=== PATIENT | male | born 1945 | race Caucasian/White ===

== ENCOUNTER 2019-10-24 07:28 | Emergency (ER) | payer MEDICARE, BC ==
[2019-10-24 07:51] VITALS: BP 142/67; PULSE 74
--- NOTE | 2019-10-24 07:58 | EDM.PDOC ---
<Darnell Hagen - Last Filed: 10/24/19 08:50> ED HPI GENERAL MEDICAL PROBLEM - General Chief Complaint: Lower Extremity Injury/Pain Stated Complaint: INJURED RT LEG/ANKLE Time Seen by Provider: 10/24/19 07:52 Source of Information: Reports: Patient, Family (), RN, RN Notes Reviewed History Limitations: Reports: No Limitations - History of Present Illness INITIAL COMMENTS - FREE TEXT/NARRATIVE: Patient presents to the ER with complaints of right ankle pain. He slipped on the ice last night around 1999. He twisted his right ankle and knee and fell on his butt. He woke up during the night to use the bathroom and could hardly bear weight on it. He took 3 tylenol this morning before coming to the ER. 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 He has also had decreased feeling and sensation in his right foot and ankle that has been progressively getting worse. He cannot move his toes on his right foot and has limited range of motion in his ankle as well and has been like that for a while. He has an appointment in [place] with Dr Euceda at the end of October to address this issue. He has mild swelling to the lateral malleolus and no ecchymosis to the right ankle. His pain is to the lateral ankle that radiates up the lateral lower leg to his knee. He is able to ambulate with the assist of a cane. Onset: Sudden Onset Date: 10/23/19 Location: Reports: Lower Extremity, Right (ankle), Radiates to (up the lateral right lower leg to knee) Quality: Reports: Ache Severity: Mild Improves with: Reports: None Worsens with: Reports: None Associated Symptoms: Reports: No Other Symptoms Treatments QUARTZ MINER: Reports: Acetaminophen Right Ankle Pain Score (Numeric/FACES): 2 - Related Data Allergies Allergy/AdvReac Type Severity Reaction Status Date / Time No Known Allergies Allergy Verified 10/24/19 07:40 Home Meds: Home Meds Enalapril/Hydrochlorothiazide [Enalapril-HCTZ 10-25 MG] 1 tab PO DAILY 07/09/15 [History] Multivitamin with Minerals [Multiple Vitamin] 1 tab PO DAILY 07/09/15 [History] Simvastatin 20 mg PO DAILY 07/09/15 [History] Finasteride 5 mg PO DAILY 10/24/19 [History] Tamsulosin [Flomax] 0.4 mg PO DAILY 10/24/19 [History] Past Medical History Other HEENT History: WEARS CORRECTIVE LENSES Other Cardiovascular History: HYPERLIPIDEMIA Other Gastrointestinal History: ALDO'S EROSIONS; DIVERTICULOSIS; ISCHEMIC COLITIS; SLIDING HIATAL HERNIA Other Genitourinary History: URETHRAL STRICTURE Other Musculoskeletal History: COMPRESSION FRACTURE L1; DISTAL PHALANX FRACTURE OPEN - Past Surgical History Other HEENT Surgeries/Procedures: PARTIAL PLATES TOP AND BOTTOM Other Male Surgeries/Procedures: VASECTOMY; URETHRAL STRICTURE DILATATION; CIRCUMCISION Other Musculoskeletal Surgeries/Procedures:: LUMBAR SPINE SURGERY; THUMB LACERATION REPAIR Review of Systems - Review of Systems Review Of Systems: Comprehensive ROS is negative, except as noted in HPI. ED EXAM, GENERAL - Physical Exam Exam: See Below Exam Limited By: No Limitations General Appearance: Alert, WD/WN, No Apparent Distress Respiratory/Chest: No Respiratory Distress, Lungs Clear, Normal Breath Sounds, No Accessory Muscle Use, Chest Non-Tender Cardiovascular: Normal Peripheral Pulses, Regular Rate, Rhythm, No Edema, No Gallop, No JVD, No Murmur, No Rub Peripheral Pulses: 2+: Posterior Tibial (R), Dorsalis Pedis (R) Extremities: Normal Inspection, Non-Tender, No Pedal Edema, Normal Capillary Refill, Joint Swelling (right lateral ankle), Limited Range of Motion (right ankle) Neurological: Alert, Oriented, CN II-XII Intact, Normal Cognition, Normal Reflexes, No Motor/Sensory Deficits Psychiatric: Normal Affect, Normal Mood Skin Exam: Warm, Dry, Intact, Normal Color, No Rash Course - Vital Signs Last Recorded V/S: Last Vital Signs Temp 36.4 C 10/24/19 07:33 Pulse 74 10/24/19 07:33 Resp 16 10/24/19 07:33 BP 142/67 H 10/24/19 07:33 Pulse Ox 96 10/24/19 07:33 - Orders/Labs/Meds Orders: Active Orders 24 hr Category Date Time Status DME for Discharge [COMM] Urgent Oth 10/24/19 08:53 Ordered Departure - Departure Time of Disposition: 08:50 Disposition: Home, Self-Care 01 Condition: Good Clinical Impression: Sprain of ankle, right Qualifiers: Encounter type: initial encounter Involved ligament of ankle: unspecified ligament Qualified Code(s): S93.401A - Sprain of unspecified ligament of right ankle, initial encounter - Discharge Information *PRESCRIPTION DRUG MONITORING PROGRAM REVIEWED*: Not Applicable *COPY OF PRESCRIPTION DRUG MONITORING REPORT IN PATIENT JEN: Not Applicable Instructions: How to Use a Stirrup Ankle Brace, [id number], Ankle Sprain, [id number] Forms: ED Department Discharge Additional Instructions: X-ray results were reviewed with patient. Use the manufactured air splint while awake, you can take it off for showering and sleeping. Ice the ankle as much as possible when resting to keep swelling down, elevate while resting and use ibuprofen and tylenol for pain as needed. If symptoms get worse or other symptoms arise follow-up in clinic with primary care provider. Sepsis Event Note - Evaluation Sepsis Screening Result: No Definite Risk - Focused Exam Vital Signs: Vital Signs Temp Pulse Resp BP Pulse Ox 10/24/19 07:33 36.4 C 74 16 142/67 H 96 Date Exam was Performed: 10/24/19 Time Exam was Performed: 08:50 - My Orders Last 24 Hours: My Active Orders 10/24/19 08:53 DME for Discharge [COMM] Urgent - Assessment/Plan Last 24 Hours: My Active Orders 10/24/19 08:53 DME for Discharge [COMM] Urgent <Edgar Hugo - Last Filed: 10/24/19 09:03> Course - Orders/Labs/Meds Orders: Active Orders 24 hr Category Date Time Status DME for Discharge [COMM] Urgent Oth 10/24/19 08:53 Ordered - Re-Assessments/Exams Free Text/Narrative Re-Assessment/Exam: 10/24/19 08:49 I have examined the patient. I have discussed findings and treatment plan with the PA student. I agree with the assessment and plan in the following students note. Sepsis Event Note - Focused Exam Date Exam was Performed: 10/24/19 Time Exam was Performed: 09:03 - My Orders Last 24 Hours: My Active Orders 10/24/19 08:53 DME for Discharge [COMM] Urgent - Assessment/Plan Last 24 Hours: My Active Orders 10/24/19 08:53 DME for Discharge [COMM] Urgent
== END 2019-10-24 09:14 | disposition home or self-care (01) ==
LOC: DL.ED 07:28
DX: S93.401A Sprain of unspecified ligament of right ankle, initial encounter (principal); Z79.899 Other long term (current) drug therapy; W19.XXXA Unspecified fall, initial encounter
CPT/HCPCS: 73562-RT; 73610-RT; 99282; 99283-25

== ENCOUNTER 2021-05-07 23:45 | Emergency (ER) | payer MEDICARE, BC ==
[2021-05-08 00:23] VITALS: BP 147/67; PULSE 109
[2021-05-08] MEDS ORDERED: Benzonatate 100 MG Cap PO ONE (00:36)
[2021-05-08] MEDS ORDERED: Acetaminophen 325 MG Tab PO ONE (00:36)
[2021-05-08] MEDS ORDERED: Albuterol/Ipratropium 3.0-0.5 MG/3 ML Neb Soln NEB ONE (01:33)
[2021-05-08 02:01] LABS: ANION GAP 12.6 mEq/L (7-13); CHLORIDE,CL 98 mmol/L (98-107); SODIUM,NA 133 mmol/L (136-145)
--- NOTE | 2021-05-08 02:06 | CR ---
PROCEDURE INFORMATION: Exam: XR Chest Exam date and time: 05/08/2021 1:25 AM Age: 76 years old Clinical indication: Cough and shortness of breath; Additional info: Cough fever SOB TECHNIQUE: Imaging protocol: XR of the chest. Views: 1 view. COMPARISON: No relevant prior studies available. FINDINGS: Lungs: Bibasilar mild airspace disease which could represent atelectasis. Cannot exclude basilar infiltrative changes. Upper lung kilgore are clear. Pleural spaces: No pleural effusions. Heart/Mediastinum: Normal heart size. Bones/joints: Unremarkable. IMPRESSION: 1. Bibasilar mild airspace disease. Cannot exclude bibasilar pneumonitis. Differential diagnosis would include atelectasis. 2. No pleural effusions.
[2021-05-08] MEDS ORDERED: guaiFENesin 100 MG/5 ML Soln 5 ML UD Cup PO ONE (02:14)
[2021-05-08] MEDS ORDERED: Azithromycin 250 MG Tab PO ONE (02:14)
--- NOTE | 2021-05-08 02:18 | EDM.PDOC ---
ED HPI GENERAL MEDICAL PROBLEM - General Chief Complaint: Respiratory Problem Stated Complaint: SHORT OF BREATH,COUGHING,CHILLS. PT FELL EARLIER Time Seen by Provider: 05/08/21 00:30 Source of Information: Reports: Patient History Limitations: Reports: No Limitations - History of Present Illness INITIAL COMMENTS - FREE TEXT/NARRATIVE: ED with c/o cough SOB onset ill ness 2 weeks, today developed fever and chills cough porductive yellow phlegm. Decreased appetite. No vomiting. Smoker. No hx COPD or asthma. No family members ill, No COVID exposure. Vaccinated. - Related Data Allergies Allergy/AdvReac Type Severity Reaction Status Date / Time No Known Allergies Allergy Verified 05/08/21 00:23 Home Meds: Home Meds Enalapril/Hydrochlorothiazide [Enalapril-HCTZ 10-25 MG] 1 tab PO DAILY 07/09/15 [History] Multivitamin with Minerals [Multiple Vitamin] 1 tab PO DAILY 07/09/15 [History] Simvastatin 20 mg PO DAILY 07/09/15 [History] Finasteride 5 mg PO DAILY 10/24/19 [History] Tamsulosin [Flomax] 0.4 mg PO DAILY 10/24/19 [History] Past Medical History HEENT History: Reports: Other (See Below) Other HEENT History: WEARS CORRECTIVE LENSES Cardiovascular History: Reports: High Cholesterol, Hypertension Other Cardiovascular History: HYPERLIPIDEMIA Respiratory History: Reports: None Gastrointestinal History: Reports: Other (See Below) Other Gastrointestinal History: ALDO'S EROSIONS; DIVERTICULOSIS; ISCHEMIC COLITIS; SLIDING HIATAL HERNIA Genitourinary History: Reports: Other (See Below) Other Genitourinary History: URETHRAL STRICTURE Musculoskeletal History: Reports: Other (See Below) Other Musculoskeletal History: COMPRESSION FRACTURE L1; DISTAL PHALANX FRACTURE OPEN Neurological History: Reports: None Psychiatric History: Reports: None Endocrine/Metabolic History: Reports: None Hematologic History: Reports: None Immunologic History: Reports: None Oncologic (Cancer) History: Reports: None Dermatologic History: Reports: None - Past Surgical History HEENT Surgical History: Reports: Other (See Below) Other HEENT Surgeries/Procedures: PARTIAL PLATES TOP AND BOTTOM Male Surgical History: Reports: Vasectomy, Other (See Below) Other Male Surgeries/Procedures: VASECTOMY; URETHRAL STRICTURE DILATATION; CIRCUMCISION Musculoskeletal Surgical History: Reports: Joint Replacement, Other (See Below) Other Musculoskeletal Surgeries/Procedures:: LUMBAR SPINE SURGERY; THUMB LACERATION REPAIR Social & Family History - Tobacco Use Tobacco Use Status *Q: Current Every Day Tobacco User Years of Tobacco use: 50 Packs/Tins Daily: 0.2 - Caffeine Use Caffeine Use: Reports: None - Recreational Drug Use Recreational Drug Use: No ED ROS GENERAL - Review of Systems Review Of Systems: Comprehensive ROS is negative, except as noted in HPI. ED EXAM, GENERAL - Physical Exam Exam: See Below Exam Limited By: No Limitations General Appearance: Alert, Mild Distress Eye Exam: Bilateral Eye: EOMI Ears: Normal External Exam, Hearing Grossly Normal, Normal TMs Nose: Normal Inspection Throat/Mouth: Normal Inspection Head: Atraumatic, Normocephalic Neck: Normal Inspection Respiratory/Chest: No Respiratory Distress, Decreased Breath Sounds, Rhonchi (bilateral mid to base) Cardiovascular: Normal Peripheral Pulses, Regular Rate, Rhythm GI/Abdominal: Normal Bowel Sounds, Soft Back Exam: Normal Inspection Extremities: Normal Inspection Neurological: Alert, Oriented, CN II-XII Intact, Normal Cognition, Normal Gait Psychiatric: Normal Affect, Normal Mood Skin Exam: Warm, Dry, Intact, Normal Color Course - Vital Signs Last Recorded V/S: Last Vital Signs Temp 98.4 F 05/08/21 00:19 Pulse 109 H 05/08/21 00:19 Resp 20 05/08/21 00:19 BP 147/67 H 05/08/21 00:19 Pulse Ox 93 L 05/08/21 00:19 - Orders/Labs/Meds Orders: Active Orders 24 hr Category Date Time Status RT Aerosol Therapy [RC] ASDIRECTED Care 05/08/21 01:33 Active CULTURE BLOOD [BC] Stat Lab 05/08/21 01:22 Received Labs: Laboratory Tests 05/08/21 05/08/21 05/08/21 Range/Units 00:10 01:22 01:22 WBC 12.8 H (5.0-10.0) 10^3/uL RBC 4.40 L (4.6-6.2) 10^6/uL Hgb 14.2 (14.0-18.0) g/dL Hct 41.0 (40.0-54.0) % MCV 93.2 (80-100) fL MCH 32.3 (27.0-34.0) pg MCHC 34.6 (33.0-35.0) g/dL Plt Count 165 (150-450) 10^3/uL Neut % (Auto) 89.2 H (42.2-75.2) % Lymph % (Auto) 4.5 L (20.5-50.1) % Riley % (Auto) 6.2 (2-8) % Eos % (Auto) 0.0 L (1.0-3.0) % Baso % (Auto) 0.1 (0.0-1.0) % D-Dimer, Quantitative 745 H (0-400) ng/mL Sodium (136-145) mmol/L Potassium (3.5-5.1) mmol/L Chloride (98-107) mmol/L Carbon Dioxide (21-32) mmol/L Anion Gap (7-13) mEq/L BUN (7-18) mg/dL Creatinine (0.70-1.30) mg/dL Est Cr Clr Drug Dosing mL/min Estimated GFR (MDRD) BUN/Creatinine Ratio (No establ ref range) Glucose (70-99) mg/dL Lactic Acid (0.4-2.0) mmol/L Calcium (8.5-10.1) mg/dL Magnesium (1.8-2.4) mg/dL Total Bilirubin (0.2-1.0) mg/dL AST (15-37) U/L ALT (16-63) U/L Alkaline Phosphatase (46-116) U/L Troponin I High Sens (<=76) pg/mL Total Protein (6.4-8.2) g/dL Albumin (3.4-5.0) g/dL Globulin Albumin/Globulin Ratio SARS-CoV-2 RNA (CHAITANYA) Negative (NEGATIVE) 05/08/21 05/08/21 Range/Units 01:22 01:22 WBC (5.0-10.0) 10^3/uL RBC (4.6-6.2) 10^6/uL Hgb (14.0-18.0) g/dL Hct (40.0-54.0) % MCV (80-100) fL MCH (27.0-34.0) pg MCHC (33.0-35.0) g/dL Plt Count (150-450) 10^3/uL Neut % (Auto) (42.2-75.2) % Lymph % (Auto) (20.5-50.1) % Riley % (Auto) (2-8) % Eos % (Auto) (1.0-3.0) % Baso % (Auto) (0.0-1.0) % D-Dimer, Quantitative (0-400) ng/mL Sodium 133 L (136-145) mmol/L Potassium 3.6 (3.5-5.1) mmol/L Chloride 98 (98-107) mmol/L Carbon Dioxide 26 (21-32) mmol/L Anion Gap 12.6 (7-13) mEq/L BUN 15 (7-18) mg/dL Creatinine 0.89 (0.70-1.30) mg/dL Est Cr Clr Drug Dosing 70.63 mL/min Estimated GFR (MDRD) > 60 BUN/Creatinine Ratio 16.9 (No establ ref range) Glucose 122 H (70-99) mg/dL Lactic Acid 1.2 (0.4-2.0) mmol/L Calcium 8.3 L (8.5-10.1) mg/dL Magnesium 1.6 L (1.8-2.4) mg/dL Total Bilirubin 1.0 (0.2-1.0) mg/dL AST 16 (15-37) U/L ALT 25 (16-63) U/L Alkaline Phosphatase 46 (46-116) U/L Troponin I High Sens 61 (<=76) pg/mL Total Protein 6.4 (6.4-8.2) g/dL Albumin 3.0 L (3.4-5.0) g/dL Globulin 3.4 Albumin/Globulin Ratio 0.88 SARS-CoV-2 RNA (CHAITANYA) (NEGATIVE) Meds: Medications Discontinued Medications Generic Name Dose Route Start Last Admin Trade Name Freq PRN Reason Stop Dose Admin Acetaminophen 650 mg 05/08/21 00:36 05/08/21 01:36 Acetaminophen 325 Mg Tab PO 05/08/21 00:37 650 mg NOW ONE Administration Albuterol/Ipratropium 3 ml 05/08/21 01:33 05/08/21 01:36 Albuterol/Ipratropium 3.0-0.5 Mg/3 Ml Neb Soln NEB 05/08/21 01:34 3 ml ONETIME ONE Administration Benzonatate 200 mg 05/08/21 00:36 05/08/21 01:35 Benzonatate 100 Mg Cap PO 05/08/21 00:37 200 mg ONETIME ONE Administration Departure - Departure Time of Disposition: 02:18 Disposition: Home, Self-Care 01 Condition: Good Clinical Impression: Pneumonia Qualifiers: Pneumonia type: due to unspecified organism Laterality: bilateral Lung location: lower lobe of lung Qualified Code(s): J18.9 - Pneumonia, unspecified organism - Discharge Information *PRESCRIPTION DRUG MONITORING PROGRAM REVIEWED*: No *COPY OF PRESCRIPTION DRUG MONITORING REPORT IN PATIENT JEN: No Instructions: Community-Acquired Pneumonia, Adult, [id number] Additional Instructions: Robitussin or muccinex to loosen phlegm tessalon 200mg every 8 hours as needed for cough humidifier increase fluids tylenol 500mg every 4 hours as needed for fever/chills/ discomfort clinic follow up if not improving Urgent follow up if symptoms worsening Sepsis Event Note (ED) - Evaluation Sepsis Screening Result: No Definite Risk - Focused Exam Vital Signs: Vital Signs Temp Pulse Resp BP Pulse Ox 05/08/21 00:19 98.4 F 109 H 20 147/67 H 93 L - My Orders Last 24 Hours: My Active Orders 05/08/21 01:22 CULTURE BLOOD [BC] Stat 05/08/21 01:33 RT Aerosol Therapy [RC] ASDIRECTED - Assessment/Plan Last 24 Hours: My Active Orders 05/08/21 01:22 CULTURE BLOOD [BC] Stat 05/08/21 01:33 RT Aerosol Therapy [RC] ASDIRECTED
== END 2021-05-08 02:32 | disposition home or self-care (01) ==
LOC: DL.ED 23:45
DX: J18.9 Pneumonia, unspecified organism (principal); E78.00 Pure hypercholesterolemia, unspecified; I10 Essential (primary) hypertension; Z72.0 Tobacco use; Z20.822 Contact with and (suspected) exposure to COVID-19
CPT/HCPCS: 36415; 71045; 80053; 83605; 83735; 84484; 85025; 85379; 87040; 99285; A9270; U0002; 87077; J7620-GY

== ENCOUNTER 2021-05-10 09:58 | Inpatient (IN) | payer MEDICARE, BC ==
--- NOTE | 2021-05-10 10:13 | EDM.PDOC ---
"ED HPI GENERAL MEDICAL PROBLEM - General Chief Complaint: Respiratory Problem Stated Complaint: [id number] PNNAEEMONIA SPITTING UP BLOOD Time Seen by Provider: 05/10/21 10:12 Source of Information: Reports: Patient History Limitations: Reports: No Limitations - History of Present Illness INITIAL COMMENTS - FREE TEXT/NARRATIVE: This 76 yo male patient reports to the ED due to coughing up blood. The patient reports he has had a cough for the past 2 weeks that has been getting worse. The patient was seen in the ED on Monday due to the cough. The patient was diagnosed with CAP and discharged on Azithromycin. The patient reports he has been taking the medication as prescribed, but continues to feel worse. 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 Medication(s) - Related Data Allergies Allergy/AdvReac Type Severity Reaction Status Date / Time No Known Allergies Allergy Verified 05/08/21 00:23 Home Meds: Home Meds Enalapril/Hydrochlorothiazide [Enalapril-HCTZ 10-25 MG] 1 tab PO DAILY 07/09/15 [History] Multivitamin with Minerals [Multiple Vitamin] 1 tab PO DAILY 07/09/15 [History] Simvastatin 20 mg PO DAILY 07/09/15 [History] Finasteride 5 mg PO DAILY 10/24/19 [History] Tamsulosin [Flomax] 0.4 mg PO DAILY 10/24/19 [History] Azithromycin [Zithromax] 250 mg PO DAILY 05/10/21 [History] Benzonatate 200 mg PO TID PRN 05/10/21 [History] Past Medical History HEENT History: Reports: Other (See Below) Other HEENT History: WEARS CORRECTIVE LENSES Cardiovascular History: Reports: High Cholesterol, Hypertension Other Cardiovascular History: HYPERLIPIDEMIA Respiratory History: Reports: None Gastrointestinal History: Reports: Other (See Below) Other Gastrointestinal History: ALDO'S EROSIONS; DIVERTICULOSIS; ISCHEMIC COLITIS; SLIDING HIATAL HERNIA Genitourinary History: Reports: Other (See Below) Other Genitourinary History: URETHRAL STRICTURE Musculoskeletal History: Reports: Other (See Below) Other Musculoskeletal History: COMPRESSION FRACTURE L1; DISTAL PHALANX FRACTURE OPEN Neurological History: Reports: None Psychiatric History: Reports: None Endocrine/Metabolic History: Reports: None Hematologic History: Reports: None Immunologic History: Reports: None Oncologic (Cancer) History: Reports: None Dermatologic History: Reports: None - Past Surgical History HEENT Surgical History: Reports: Other (See Below) Other HEENT Surgeries/Procedures: PARTIAL PLATES TOP AND BOTTOM Male Surgical History: Reports: Vasectomy, Other (See Below) Other Male Surgeries/Procedures: VASECTOMY; URETHRAL STRICTURE DILATATION; CIRCUMCISION Musculoskeletal Surgical History: Reports: Joint Replacement, Other (See Below) Other Musculoskeletal Surgeries/Procedures:: LUMBAR SPINE SURGERY; THUMB LACERATION REPAIR Social & Family History - Caffeine Use Caffeine Use: Reports: None ED ROS GENERAL - Review of Systems Review Of Systems: Comprehensive ROS is negative, except as noted in HPI. ED EXAM, GENERAL - Physical Exam Exam: See Below Exam Limited By: No Limitations General Appearance: Alert, WD/WN, Moderate Distress Eye Exam: Bilateral Eye: EOMI, Normal Inspection, PERRL Ears: Normal External Exam, Normal Canal, Hearing Grossly Normal, Normal TMs Nose: Normal Inspection, Normal Mucosa, No Blood Throat/Mouth: Normal Inspection, Normal Lips, Normal Teeth, Normal Gums, Normal Oropharynx, Normal Voice, No Airway Compromise Head: Atraumatic, Normocephalic Neck: Normal Inspection, Supple, Non-Tender, Full Range of Motion Respiratory/Chest: Decreased Breath Sounds, Rhonchi (right lower) Cardiovascular: Normal Peripheral Pulses, No Edema, No Gallop, No JVD, No Murmur, No Rub, Tachycardia (Initially) GI/Abdominal: Normal Bowel Sounds, Soft, Non-Tender, No Organomegaly, No Distention, No Abnormal Bruit, No Mass (Male) Exam: Deferred Rectal (Males) Exam: Deferred Back Exam: Normal Inspection, Full Range of Motion, NT Extremities: Normal Inspection, Normal Range of Motion, Non-Tender, Normal Capillary Refill, No Pedal Edema Neurological: Alert, Oriented, CN II-XII Intact, Normal Cognition, Normal Gait, Normal Reflexes, No Motor/Sensory Deficits Psychiatric: Normal Affect, Normal Mood Skin Exam: Warm, Dry, Intact, Normal Color, No Rash Lymphatic: No Adenopathy #1 Interpretation EKG Date: 05/10/21 Time: 10:21 Rhythm: Other (Bigeminal PVCs) [place]: Normal P-Wave: Present QRS: Normal ST-T: Normal QT: Normal Course - Vital Signs Last Recorded V/S: Last Vital Signs Temp 96.8 F L 05/10/21 10:11 Pulse 102 H 05/10/21 11:13 Resp 24 H 05/10/21 11:13 BP 124/75 05/10/21 11:13 Pulse Ox 95 05/10/21 11:13 - Orders/Labs/Meds Orders: Active Orders 24 hr Category Date Time Status CULTURE BLOOD [BC] Stat Lab 05/10/21 10:16 Received CULTURE SPUTUM + SMEAR [RM] Stat Lab 05/10/21 12:13 Ordered UA RFX LEXI AND CULT IF INDIC [URIN] Urgent Lab 05/10/21 12:13 Ordered Labs: Laboratory Tests 05/10/21 05/10/21 05/10/21 Range/Units 10:15 10:16 10:16 WBC 10.5 H (5.0-10.0) 10^3/uL RBC 4.35 L (4.6-6.2) 10^6/uL Hgb 13.9 L (14.0-18.0) g/dL Hct 41.1 (40.0-54.0) % MCV 94.5 (80-100) fL MCH 32.0 (27.0-34.0) pg MCHC 33.8 (33.0-35.0) g/dL Plt Count 182 (150-450) 10^3/uL Neut % (Auto) 73.5 (42.2-75.2) % Lymph % (Auto) 16.5 L (20.5-50.1) % [place] % (Auto) 8.5 H (2-8) % Eos % (Auto) 1.3 (1.0-3.0) % Baso % (Auto) 0.2 (0.0-1.0) % D-Dimer, Quantitative 2720 H (0-400) ng/mL Sodium (136-145) mmol/L Potassium (3.5-5.1) mmol/L Chloride (98-107) mmol/L Carbon Dioxide (21-32) mmol/L Anion Gap (7-13) mEq/L BUN (7-18) mg/dL Creatinine (0.70-1.30) mg/dL Est Cr Clr Drug Dosing mL/min Estimated GFR (MDRD) BUN/Creatinine Ratio (No establ ref range) Glucose (70-99) mg/dL Lactic Acid (0.4-2.0) mmol/L Calcium (8.5-10.1) mg/dL Total Bilirubin (0.2-1.0) mg/dL AST (15-37) U/L ALT (16-63) U/L Alkaline Phosphatase (46-116) U/L Troponin I High Sens (<=76) pg/mL B-Natriuretic Peptide (0-100) pg/ml Total Protein (6.4-8.2) g/dL Albumin (3.4-5.0) g/dL Globulin Albumin/Globulin Ratio SARS-CoV-2 RNA (CHAITANYA) Negative (NEGATIVE) 05/10/21 05/10/21 Range/Units 10:16 10:16 WBC (5.0-10.0) 10^3/uL RBC (4.6-6.2) 10^6/uL Hgb (14.0-18.0) g/dL Hct (40.0-54.0) % MCV (80-100) fL MCH (27.0-34.0) pg MCHC (33.0-35.0) g/dL Plt Count (150-450) 10^3/uL Neut % (Auto) (42.2-75.2) % Lymph % (Auto) (20.5-50.1) % [place] % (Auto) (2-8) % Eos % (Auto) (1.0-3.0) % Baso % (Auto) (0.0-1.0) % D-Dimer, Quantitative (0-400) ng/mL Sodium 139 (136-145) mmol/L Potassium 3.4 L (3.5-5.1) mmol/L Chloride 101 (98-107) mmol/L Carbon Dioxide 28 (21-32) mmol/L Anion Gap 13.4 H (7-13) mEq/L BUN 14 (7-18) mg/dL Creatinine 0.81 (0.70-1.30) mg/dL Est Cr Clr Drug Dosing 70.27 mL/min Estimated GFR (MDRD) > 60 BUN/Creatinine Ratio 17.3 (No establ ref range) Glucose 127 H (70-99) mg/dL Lactic Acid 1.6 (0.4-2.0) mmol/L Calcium 9.1 (8.5-10.1) mg/dL Total Bilirubin 0.5 (0.2-1.0) mg/dL AST 26 (15-37) U/L ALT 34 (16-63) U/L Alkaline Phosphatase 55 (46-116) U/L Troponin I High Sens 21 (<=76) pg/mL B-Natriuretic Peptide 221 H (0-100) pg/ml Total Protein 7.0 (6.4-8.2) g/dL Albumin 2.8 L (3.4-5.0) g/dL Globulin 4.2 Albumin/Globulin Ratio 0.67 SARS-CoV-2 RNA (CHAITANYA) (NEGATIVE) Meds: Medications Discontinued Medications Generic Name Dose Route Start Last Admin Trade Name Freq PRN Reason Stop Dose Admin Iopamidol 100 ml 05/10/21 11:24 05/10/21 11:54 Iopamidol 755 Mg/Ml 100 Ml Bottle IVPUSH 05/10/21 11:25 79 ml ONETIME ONE Administration - Radiology Interpretation Free Text/Narrative:: [facility] Final Radiology Report Call: [phone] assistance Online chat: [email or web address] Name: DEBORAH MILLARD Age: 76Years M Date: 05/10/2021 SSN: -- : [id number] Study: CT CHEST W CONT Requesting Physician: Edgar Hugo Images: 480 Addl Studies: Provided Clinical History: shortness of breath, cough, elevated D-dimer Contrast: With Contrast Medium: Isovue 370 Contrast Amount: 79 mL Contrast Method: Intravenous (IV) Page 1 of 2 PROCEDURE INFORMATION: Exam: CT Chest With Contrast; Diagnostic Exam date and time: 05/10/2021 11:38 AM Age: 76 years old Clinical indication: Cough and shortness of breath; Additional info: Shortness of breath, cough, elevated d-dimer TECHNIQUE: Imaging protocol: Diagnostic computed tomography of the chest with contrast. Radiation optimization: All CT scans at this facility use at least one of these dose optimization techniques: automated exposure control; mA and/or kV adjustment per patient size (includes targeted exams where dose is matched to clinical indication); or iterative reconstruction. Contrast material: ISOVUE 370; Contrast volume: 79 ml; Contrast route: INTRAVENOUS (IV); COMPARISON: CR Chest 1V Frontal 05/08/2021 1:25 AM FINDINGS: Lungs: There is an alveolar right lower lobe consolidation predominating at the posterior basilar segment. Right hilar and infrahilar peribronchial patchy opacification. Pleural spaces: Unremarkable. No pneumothorax. No pleural effusion. Heart: Coronary artery calcifications. No cardiomegaly. No pericardial effusion. Mediastinal space: There is a small hiatal hernia. Pulmonary arteries: Main pulmonary artery measures 2.7 cm. No pulmonary filling defects. Aorta: Atherosclerotic calcification. No aortic aneurysm. Veins: Opacification of dilated inferior vena cava and hepatic veins may represent hepatic congestion. Lymph nodes: Reactive mediastinal lymph nodes. No enlarged lymph nodes. Bones/joints: Unremarkable. No acute fracture. DEBORAH MILLARD | Final Radiology Report CONFIDENTIALITY STATEMENT This report is intended only for use by the referring physician, and only in accordance with law. If you received this in error, call [phone]. Page 2 of 2 Soft tissues: Unremarkable. IMPRESSION: 1. No pulmonary embolic disease. 2. Moderate right peribronchial and right lower lobe consolidation compatible with pneumonitis. 3. Hepatic congestion. 4. Hiatal hernia. Thank you for allowing us to participate in the care of your patient. Dictated and Authenticated by: Kristie Ibanez MD 05/10/2021 12:55 PM Central Time ([place] & [place]) Departure - Departure Time of Disposition: 13:44 Disposition: Admitted As Inpatient 64 Condition: Fair Clinical Impression: D-dimer, elevated Pneumonia Qualifiers: Pneumonia type: due to unspecified organism Laterality: bilateral Lung location: lower lobe of lung Qualified Code(s): J18.9 - Pneumonia, unspecified organism - Discharge Information *PRESCRIPTION DRUG MONITORING PROGRAM REVIEWED*: Not Applicable *COPY OF PRESCRIPTION DRUG MONITORING REPORT IN PATIENT JEN: Not Applicable Care Plan Goals: Discussed the patient's history, examination, lab, EKG and CT findings with Dr. Marinelli. Dr. Crow Green accepted the patient for continued evaluation and management as an inpatient at [facility]. Sepsis Event Note (ED) - Evaluation Sepsis Screening Result: Possible Sepsis Risk - Focused Exam Vital Signs: Vital Signs Temp Pulse Resp BP BP Pulse Ox 05/10/21 11:13 102 H 24 H 124/75 95 05/10/21 10:45 94 24 H 125/58 L 95 05/10/21 10:11 96.8 F L 162 H 24 H 117/91 H 93 L - My Orders Last 24 Hours: My Active Orders 05/10/21 10:16 CULTURE BLOOD [BC] Stat 05/10/21 12:13 CULTURE SPUTUM + SMEAR [RM] Stat UA RFX LEXI AND CULT IF INDIC [URIN] Urgent - Assessment/Plan Last 24 Hours: My Active Orders 05/10/21 10:16 CULTURE BLOOD [BC] Stat 05/10/21 12:13 CULTURE SPUTUM + SMEAR [RM] Stat UA RFX LEXI AND CULT IF INDIC [URIN] Urgent"
[2021-05-10 10:45] LABS: ANION GAP 13.4 mEq/L (7-13); CHLORIDE,CL 101 mmol/L (98-107); SODIUM,NA 139 mmol/L (136-145)
[2021-05-10] MEDS ORDERED: Iopamidol 755 Mg/ML 100 ML Bottle IVPUSH ONE (11:24)
--- NOTE | 2021-05-10 12:55 | CT ---
PROCEDURE INFORMATION: Exam: CT Chest With Contrast; Diagnostic Exam date and time: 05/10/2021 11:38 AM Age: 76 years old Clinical indication: Cough and shortness of breath; Additional info: Shortness of breath, cough, elevated d-dimer TECHNIQUE: Imaging protocol: Diagnostic computed tomography of the chest with contrast. Radiation optimization: All CT scans at this facility use at least one of these dose optimization techniques: automated exposure control; mA and/or kV adjustment per patient size (includes targeted exams where dose is matched to clinical indication); or iterative reconstruction. Contrast material: ISOVUE 370; Contrast volume: 79 ml; Contrast route: INTRAVENOUS (IV); COMPARISON: CR Chest 1V Frontal 05/08/2021 1:25 AM FINDINGS: Lungs: There is an alveolar right lower lobe consolidation predominating at the posterior basilar segment. Right hilar and infrahilar peribronchial patchy opacification. Pleural spaces: Unremarkable. No pneumothorax. No pleural effusion. Heart: Coronary artery calcifications. No cardiomegaly. No pericardial effusion. Mediastinal space: There is a small hiatal hernia. Pulmonary arteries: Main pulmonary artery measures 2.7 cm. No pulmonary filling defects. Aorta: Atherosclerotic calcification. No aortic aneurysm. Veins: Opacification of dilated inferior vena cava and hepatic veins may represent hepatic congestion. Lymph nodes: Reactive mediastinal lymph nodes. No enlarged lymph nodes. Bones/joints: Unremarkable. No acute fracture. Soft tissues: Unremarkable. IMPRESSION: 1. No pulmonary embolic disease. 2. Moderate right peribronchial and right lower lobe consolidation compatible with pneumonitis. 3. Hepatic congestion. 4. Hiatal hernia.
[2021-05-10] MEDS ORDERED: cefTRIAXone 1 GM in Sodium Chloride 0.9% 50 ML IV ONE (13:05)
[2021-05-10] MEDS ORDERED: Pneumococcal Polyvalent-23 Vaccine 0.5 ML SDV IM ONE (15:10)
--- NOTE | 2021-05-10 15:39 | PCM.HP ---
H&P History of Present Illness - General Date of Service: 05/10/21 Admit Problem/Dx: Admission Diagnosis/Problem Admission Diagnosis/Problem Pneumonia/hemoptysis/elevated d dimer. 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 cough with bright blood. seen on monday and started on azithromycin but no improvement and has mild orthopnea and worsening cough when he lays down . denies any chest pain and denies syncope ,palp and n/v. he has chills this am and yesterdaya nd feels played out since monday. covid screen x 2 negative and no known contacts , covid vaccine last october. no hx chf and pvcs seen but never aware. ct scan shows infitrate rt lower lobe and middle lobe with ground glass appearance. hx of smoking / copd changes evident cardiac calcifications seen heart size slightly enlarged. djd changes of spine. pmh hx of lumbar surgery x 2 [address]x [address] rt foot drop wears brace. hyperlipidemia. beni on treatment. obesity no diabetes. hypertension. no prev cv events : ami // cva or anerysms. normal liver and renal function .assess:plan see p.e. assess/plan pneumonia start rocephin/azythromycin and follow progress. suspect bact erial cause and sputum will be ordered. cossible covid seems less likely with 2 neg screens in past 5 days a nd prior immunization. hemoptysis needs ent pulm eval if persists. cad ca in corinaries may need further eval.ekg lahb and normal sinus rhythm seen and reviewed. trop normal copd stable but needs to quit smoking. patch offered. hypertension beni obesity treat above. screens ordered. boh Onset of Symptoms: Reports: Gradual Symptom Onset Date: 04/20/21 Location: Reports: Chest Severity: Moderate Improves with: Reports: Rest Context: Reports: Activity/Exercise Associated Symptoms: Reports: Fever/Chills, Shortness of Breath, Other (mildly bloody sputum small amount) - Related Data Allergies/Adverse Reactions: Allergies Allergy/AdvReac Type Severity Reaction Status Date / Time No Known Allergies Allergy Verified 05/08/21 00:23 Home Medications: Home Meds Enalapril/Hydrochlorothiazide [Enalapril-HCTZ 10-25 MG] 1 tab PO DAILY 07/09/15 [History] Multivitamin with Minerals [Multiple Vitamin] 1 tab PO DAILY 07/09/15 [History] Simvastatin 20 mg PO DAILY 07/09/15 [History] Finasteride 5 mg PO DAILY 10/24/19 [History] Tamsulosin [Flomax] 0.4 mg PO DAILY 10/24/19 [History] Azithromycin [Zithromax] 250 mg PO DAILY 05/10/21 [History] Benzonatate 200 mg PO TID PRN 05/10/21 [History] Past Medical History HEENT History: Reports: Other (See Below) Other HEENT History: WEARS CORRECTIVE LENSES Cardiovascular History: Reports: High Cholesterol, Hypertension Other Cardiovascular History: HYPERLIPIDEMIA Respiratory History: Reports: None Gastrointestinal History: Reports: Other (See Below) Other Gastrointestinal History: ALDO'S EROSIONS; DIVERTICULOSIS; ISCHEMIC COLITIS; SLIDING HIATAL HERNIA Genitourinary History: Reports: Urinary Incontinence, Other (See Below) Other Genitourinary History: URETHRAL STRICTURE Musculoskeletal History: Reports: Other (See Below) Other Musculoskeletal History: COMPRESSION FRACTURE L1; DISTAL PHALANX FRACTURE OPEN Neurological History: Reports: None Psychiatric History: Reports: None Endocrine/Metabolic History: Reports: None Hematologic History: Reports: None Immunologic History: Reports: None Oncologic (Cancer) History: Reports: None Dermatologic History: Reports: None - Infectious Disease History Infectious Disease History: Reports: Chicken Pox, Measles, Mumps - Past Surgical History HEENT Surgical History: Reports: Other (See Below) Other HEENT Surgeries/Procedures: PARTIAL PLATES TOP AND BOTTOM Male Surgical History: Reports: Vasectomy, Other (See Below) Other Male Surgeries/Procedures: VASECTOMY; URETHRAL STRICTURE DILATATION; CIRCUMCISION Musculoskeletal Surgical History: Reports: Joint Replacement, Knee Replacement, Other (See Below) Other Musculoskeletal Surgeries/Procedures:: LUMBAR SPINE SURGERY; THUMB LACERATION REPAIR Social & Family History - Tobacco Use Tobacco Use Status *Q: Never Tobacco User Used Tobacco, but Quit: Yes Month/Year Tobacco Last Used: 03/2021 - Caffeine Use Caffeine Use: Reports: Coffee - Recreational Drug Use Recreational Drug Use: No H&P Review of Systems - Review of Systems: Review Of Systems: See Below General: Reports: Fever, Chills HEENT: Reports: No Symptoms Pulmonary: Reports: No Symptoms, Shortness of Breath, Cough, Sputum Cardiovascular: Reports: No Symptoms Gastrointestinal: Reports: No Symptoms Genitourinary: Reports: No Symptoms Musculoskeletal: Reports: No Symptoms Skin: Reports: No Symptoms Psychiatric: Reports: No Symptoms Neurological: Reports: No Symptoms Hematologic/Lymphatic: Reports: No Symptoms Immunologic: Reports: No Symptoms Exam - Exam Exam: See Below - Vital Signs Vital Signs: Last Vital Signs Temp 36.4 C 05/10/21 14:53 Pulse 77 05/10/21 14:53 Resp 20 05/10/21 14:53 BP 143/84 H 05/10/21 14:53 Pulse Ox 95 05/10/21 14:53 Weight: 104.508 kg - Exam General: Alert, Oriented, 4 HEENT: PERRLA, Hearing Intact, Mucosa Moist & [place], Nares Patent, Normal Nasal Septum, Posterior Pharynx Clear, Conjunctiva Clear, EOMI, EACs Clear, TMs Clear Neck: Supple, Trachea Midline, 2 Lungs: Clear to Auscultation, Normal Respiratory Effort, Decreased Breath Sounds, Rhonchi Cardiovascular: Regular Rate, Regular Rhythm GI/Abdominal Exam: Normal Bowel Sounds, Soft, Non-Tender, No Organomegaly, No Distention, No Abnormal Bruit, No Mass, Pelvis Stable (Male) Exam: No Hernia, Normal Inspection, Normal Prostate, Circumcised Rectal (Males) Exam: Normal Exam, Normal Rectal Tone, Prostate Normal Back Exam: Normal Inspection, Full Range of Motion, NT Extremities: Normal Inspection, Normal Range of Motion, Non-Tender, No Pedal Edema, Normal Capillary Refill Skin: Warm, Dry, Intact Neurological: Cranial Nerves Intact, Reflexes Equal Bilateral Neuro Extensive - Mental Status: Alert, Oriented x3, Normal Mood/Affect, Normal Cognition Neuro Extensive - Motor, Sensory, Reflexes: CN II-XII Intact, Normal Gait, Normal Reflexes Psychiatric: Alert, Normal Affect, Normal Mood - Patient Data Lab Results Last 24 hrs: Laboratory Results - last 24 hr 05/10/21 05/10/21 05/10/21 Range/Units 10:15 10:16 10:16 WBC 10.5 H (5.0-10.0) 10^3/uL RBC 4.35 L (4.6-6.2) 10^6/uL Hgb 13.9 L (14.0-18.0) g/dL Hct 41.1 (40.0-54.0) % MCV 94.5 (80-100) fL MCH 32.0 (27.0-34.0) pg MCHC 33.8 (33.0-35.0) g/dL Plt Count 182 (150-450) 10^3/uL Neut % (Auto) 73.5 (42.2-75.2) % Lymph % (Auto) 16.5 L (20.5-50.1) % [place] % (Auto) 8.5 H (2-8) % Eos % (Auto) 1.3 (1.0-3.0) % Baso % (Auto) 0.2 (0.0-1.0) % D-Dimer, Quantitative 2720 H (0-400) ng/mL Sodium (136-145) mmol/L Potassium (3.5-5.1) mmol/L Chloride (98-107) mmol/L Carbon Dioxide (21-32) mmol/L Anion Gap (7-13) mEq/L BUN (7-18) mg/dL Creatinine (0.70-1.30) mg/dL Est Cr Clr Drug Dosing mL/min Estimated GFR (MDRD) BUN/Creatinine Ratio (No establ ref range) Glucose (70-99) mg/dL Lactic Acid (0.4-2.0) mmol/L Calcium (8.5-10.1) mg/dL Total Bilirubin (0.2-1.0) mg/dL AST (15-37) U/L ALT (16-63) U/L Alkaline Phosphatase (46-116) U/L Troponin I High Sens (<=76) pg/mL B-Natriuretic Peptide (0-100) pg/ml Total Protein (6.4-8.2) g/dL Albumin (3.4-5.0) g/dL Globulin Albumin/Globulin Ratio Urine Color (YELLOW) Urine Appearance (CLEAR) Urine pH (5.0-9.0) Ur Specific [place] (1.005-1.030) Urine Protein (NEGATIVE) Urine Glucose (UA) (NEGATIVE) Urine Ketones (NEGATIVE) Urine Occult Blood (NEGATIVE) Urine Nitrite (NEGATIVE) Urine Bilirubin (NEGATIVE) Urine Urobilinogen (0.2-1.0) mg/dL Ur Leukocyte Esterase (NEGATIVE) SARS-CoV-2 RNA (CHAITANYA) Negative (NEGATIVE) 05/10/21 05/10/21 05/10/21 Range/Units 10:16 10:16 12:52 WBC (5.0-10.0) 10^3/uL RBC (4.6-6.2) 10^6/uL Hgb (14.0-18.0) g/dL Hct (40.0-54.0) % MCV (80-100) fL MCH (27.0-34.0) pg MCHC (33.0-35.0) g/dL Plt Count (150-450) 10^3/uL Neut % (Auto) (42.2-75.2) % Lymph % (Auto) (20.5-50.1) % [place] % (Auto) (2-8) % Eos % (Auto) (1.0-3.0) % Baso % (Auto) (0.0-1.0) % D-Dimer, Quantitative (0-400) ng/mL Sodium 139 (136-145) mmol/L Potassium 3.4 L (3.5-5.1) mmol/L Chloride 101 (98-107) mmol/L Carbon Dioxide 28 (21-32) mmol/L Anion Gap 13.4 H (7-13) mEq/L BUN 14 (7-18) mg/dL Creatinine 0.81 (0.70-1.30) mg/dL Est Cr Clr Drug Dosing 70.27 mL/min Estimated GFR (MDRD) > 60 BUN/Creatinine Ratio 17.3 (No establ ref range) Glucose 127 H (70-99) mg/dL Lactic Acid 1.6 (0.4-2.0) mmol/L Calcium 9.1 (8.5-10.1) mg/dL Total Bilirubin 0.5 (0.2-1.0) mg/dL AST 26 (15-37) U/L ALT 34 (16-63) U/L Alkaline Phosphatase 55 (46-116) U/L Troponin I High Sens 21 (<=76) pg/mL B-Natriuretic Peptide 221 H (0-100) pg/ml Total Protein 7.0 (6.4-8.2) g/dL Albumin 2.8 L (3.4-5.0) g/dL Globulin 4.2 Albumin/Globulin Ratio 0.67 Urine Color Yellow (YELLOW) Urine Appearance Clear (CLEAR) Urine pH 7.5 (5.0-9.0) Ur Specific [place] 1.015 (1.005-1.030) Urine Protein Negative (NEGATIVE) Urine Glucose (UA) Negative (NEGATIVE) Urine Ketones Negative (NEGATIVE) Urine Occult Blood Negative (NEGATIVE) Urine Nitrite Negative (NEGATIVE) Urine Bilirubin Negative (NEGATIVE) Urine Urobilinogen 0.2 (0.2-1.0) mg/dL Ur Leukocyte Esterase Negative (NEGATIVE) SARS-CoV-2 RNA (CHAITANYA) (NEGATIVE) Result Diagrams: 05/10/21 10:16 05/10/21 10:16 Luis Results Last 24 hrs: Microbiology 05/10/21 11:05 Gram Stain - Final Sputum - Expectorated - Problem List (1) Cough with hemoptysis SNOMED Code(s): 50254299 ICD Code: R04.2 - HEMOPTYSIS Status: Acute Priority: Low Current Visit: Yes Onset Date: ~05/10/21 Problem Details: smoker and may need evaluation of trachea /oral pharynx but no obvious lesions nose or mouth (2) D-dimer, elevated SNOMED Code(s): 015100074 ICD Code: R79.89 - OTHER SPECIFIED ABNORMAL FINDINGS OF BLOOD CHEMISTRY Status: Acute Priority: Medium Current Visit: Yes Onset Date: ~05/10/21 Problem Details: d dimer 2142 and pulm angiogram shows no emboli. assess legs by doppler and start emperic anticoag and monitor for covid depite neg screens. (3) Pneumonia SNOMED Code(s): 851927472 ICD Code: J18.9 - PNEUMONIA, UNSPECIFIED ORGANISM Status: Acute Priority: High Current Visit: Yes Onset Date: ~05/10/21 Problem Details: start rocephin and cont azythromycin. Qualifiers: Pneumonia type: due to unspecified organism Laterality: bilateral Lung location: lower lobe of lung Qualified Code(s): J18.9 - Pneumonia, unspecified organism (4) CHF (congestive heart failure), NYHA class I SNOMED Code(s): 90215403, 123368519 ICD Code: I50.9 - HEART FAILURE, UNSPECIFIED Status: Acute Current Visit: Yes Qualifiers: Congestive heart failure type: unspecified Qualified Code(s): I50.9 - Heart failure, unspecified Problem List Initiated/Reviewed/Updated: Yes Orders Last 24hrs: Active Orders 24 hr Category Date Time Status Admission Diagnosis [ADT] Urgent ADT 05/10/21 13:41 Ordered Admission Status [Patient Status] [ADT] Routine ADT 05/10/21 13:41 Active EKG Documentation Completion [RC] STAT Care 05/10/21 14:23 Active Immunization Administration Charges [RC] ASDIRECTED Care 05/10/21 15:10 Active CULTURE BLOOD [BC] Stat Lab 05/10/21 10:16 Received CULTURE SPUTUM + SMEAR [RM] Stat Lab 05/10/21 11:05 Results Pneumococcal Polyvalent-23 Vac [Pneumovax 23] Med 05/10/21 15:10 Once 0.5 ml IM .ONCE ONE Medication Orders Pneumococcal Polyvalent Vaccine (Pneumococcal Polyvalent-23 Vaccine 0.5 Ml Sdv) 0.5 ml IM .ONCE ONE Stop: 05/10/21 15:11 Assessment/Plan Comment:: assess:plan pneumonia start rocephin/azythromycin and follow progress. suspect bacterial cause and sputum will be ordered. cossible covid seems less likely with 2 neg screens in past 5 days a nd prior immunization. hemoptysis needs ent pulm eval if persists. cad ca in corinaries may need further eval.ekg lahb and normal sinus rhythm seen and reviewed. trop normal copd stable but needs to quit smoking. patch offered. hypertension beni obesity treat above. screens ordered. boh
[2021-05-10] MEDS ORDERED: cefTRIAXone 2 GM in Sodium Chloride 0.9% 100 ML IV SCH (16:00)
[2021-05-10] MEDS ORDERED: Acetaminophen 325 MG Tab PO PRN (16:05)
[2021-05-10] MEDS ORDERED: cefTRIAXone 1 GM Vial IV ONE (16:30)
[2021-05-10] MEDS: Enoxaparin 40 MG/0.4 ML Syringe SUBCUT SCH (17:06)
[2021-05-10] MEDS: Albuterol 6.7 GM Inhaler INH SCH ×2 (17:07→20:33)
[2021-05-10] MEDS: Water For Injection, Sterile 20 ML ONE (17:14)
[2021-05-10 17:36] LABS: HEMOGLOBIN A1C 5.8 % (<5.7)
[2021-05-10] MEDS: Potassium Chloride 10 MEQ Tab.ER PO SCH (17:54)
[2021-05-10] MEDS ORDERED: Sodium Chloride 0.9% 250 ML IV ONE (18:35)
[2021-05-10] MEDS: Sodium Chloride 0.9% 1,000 ML IV SCH ×3 (18:53→22:07)
[2021-05-10] MEDS ORDERED: Sodium Chloride 0.9% 250 ML IV SCH (21:45)
[2021-05-10] MEDS ORDERED: Potassium Chloride 10 MEQ Tab.ER PO ONE (22:04)
[2021-05-10] MEDS ORDERED: Metoprolol Tartrate 25 MG Tab PO ONE (22:13)
[2021-05-10] MEDS ORDERED: Aspirin 81 MG Tab.EC PO ONE (22:20)
[2021-05-10] MEDS ORDERED: Hydrochlorothiazide 25 MG Tab PO ONE (22:20)
[2021-05-10] MEDS: Benzonatate 100 MG Cap PO PRN (22:59)
[2021-05-11] MEDS: Sodium Chloride 0.9% 1,000 ML IV SCH ×3 (03:11→13:23)
[2021-05-11] MEDS ORDERED: Metoprolol Tartrate 25 MG Tab PO ONE ×2 (06:45→07:59)
[2021-05-11] MEDS: Benzonatate 100 MG Cap PO PRN (07:06)
[2021-05-11] MEDS ORDERED: Sodium Chloride 0.9% 250 ML IV ONE (07:59)
[2021-05-11] MEDS: Hydrochlorothiazide 25 MG Tab PO SCH (08:26)
[2021-05-11] MEDS: Simvastatin 40 MG Tab PO SCH (08:27)
[2021-05-11] MEDS: Tamsulosin 0.4 MG Cap.ER PO SCH (08:28)
[2021-05-11] MEDS: Potassium Chloride 10 MEQ Tab.ER PO SCH ×2 (08:28→17:00)
[2021-05-11] MEDS: Enoxaparin 40 MG/0.4 ML Syringe SUBCUT SCH (08:30)
[2021-05-11] MEDS: Albuterol 6.7 GM Inhaler INH SCH ×4 (08:30→20:54)
[2021-05-11] MEDS: Azithromycin 250 MG Tab PO SCH (08:41)
[2021-05-11] MEDS ORDERED: Nicotine 14 MG/24 Hr Patch TRDERM SCH (09:00)
[2021-05-11] MEDS ORDERED: Diltiazem 25 MG/5 ML SDV IVPUSH ONE ×4 (10:05→15:25)
--- NOTE | 2021-05-11 10:05 | PCM.PN ---
- General Info Date of Service: 05/11/21 Admission Dx/Problem (Free Text): Admission Diagnosis/Problem Admission Diagnosis/Problem Pneumonia/hemoptysis/elevated d dimer. Subjective Update: No significant overnight issues. Patient states he is feeling okay this lidya ramírez. His shortness of breath seems to be getting better. He still has some productive cough with clear sputum. He denies any fever or chills. He rested okay last night. He does sort of feel weak and tired. No GI or complaints. Awaiting morning labs. However he has been tachycardic with heart rate as high as 160s. He was also hypertensive with documented blood pressures as 146/117 mm per mercury. At bedside he appears to be comfortable and in no acute distress. He is on 2 L nasal cannula satting well adequately. Functional Status: Reports: Pain Controlled, Tolerating Diet, Ambulating, Urinating. Denies: New Symptoms - Review of Systems General: Reports: Weakness. Denies: Fever, Fatigue, Chills HEENT: Reports: No Symptoms Pulmonary: Reports: Shortness of Breath, Cough Cardiovascular: Denies: Chest Pain, Palpitations, Dyspnea on Exertion Gastrointestinal: Denies: Abdominal Pain, Nausea, Vomiting Genitourinary: Denies: Dysuria, Frequency, Urgency Musculoskeletal: Denies: Neck Pain, Back Pain Skin: Denies: Cyanosis, Rash Neurological: Denies: Trouble Speaking, Difficulty Walking, Gait Disturbance Psychiatric: Denies: Confusion, Anxiety, Agitation - Patient Data Vitals - Most Recent: Last Vital Signs Temp 36.2 C 05/11/21 08:00 Pulse 155 H 05/11/21 08:50 Resp 30 H 05/11/21 08:00 BP 132/88 05/11/21 08:50 Pulse Ox 95 05/11/21 08:00 Weight - Most Recent: 104.508 kg I&O - Last 24 Hours: Intake & Output 05/10/21 05/11/21 05/11/21 22:59 06:59 14:59 Intake Total 1300 2017 440 Output Total 750 1850 Balance 550 167 440 Lab Results Last 24 Hours: Laboratory Results - last 24 hr 05/10/21 05/10/21 05/10/21 Range/Units 10:15 10:16 10:16 WBC 10.5 H (5.0-10.0) 10^3/uL RBC 4.35 L (4.6-6.2) 10^6/uL Hgb 13.9 L (14.0-18.0) g/dL Hct 41.1 (40.0-54.0) % MCV 94.5 (80-100) fL MCH 32.0 (27.0-34.0) pg MCHC 33.8 (33.0-35.0) g/dL Plt Count 182 (150-450) 10^3/uL Neut % (Auto) 73.5 (42.2-75.2) % Lymph % (Auto) 16.5 L (20.5-50.1) % [place] % (Auto) 8.5 H (2-8) % Eos % (Auto) 1.3 (1.0-3.0) % Baso % (Auto) 0.2 (0.0-1.0) % D-Dimer, Quantitative 2720 H (0-400) ng/mL Sodium (136-145) mmol/L Potassium (3.5-5.1) mmol/L Chloride (98-107) mmol/L Carbon Dioxide (21-32) mmol/L Anion Gap (7-13) mEq/L BUN (7-18) mg/dL Creatinine (0.70-1.30) mg/dL Est Cr Clr Drug Dosing mL/min Estimated GFR (MDRD) BUN/Creatinine Ratio (No establ ref range) Glucose (70-99) mg/dL Hemoglobin A1c (<5.7) % Lactic Acid (0.4-2.0) mmol/L Calcium (8.5-10.1) mg/dL Magnesium (1.8-2.4) mg/dL Total Bilirubin (0.2-1.0) mg/dL AST (15-37) U/L ALT (16-63) U/L Alkaline Phosphatase (46-116) U/L Troponin I High Sens (<=76) pg/mL B-Natriuretic Peptide (0-100) pg/ml Total Protein (6.4-8.2) g/dL Albumin (3.4-5.0) g/dL Globulin Albumin/Globulin Ratio TSH, Ultra Sensitive (0.36-3.74) uIU/mL Urine Color (YELLOW) Urine Appearance (CLEAR) Urine pH (5.0-9.0) Ur Specific [place] (1.005-1.030) Urine Protein (NEGATIVE) Urine Glucose (UA) (NEGATIVE) Urine Ketones (NEGATIVE) Urine Occult Blood (NEGATIVE) Urine Nitrite (NEGATIVE) Urine Bilirubin (NEGATIVE) Urine Urobilinogen (0.2-1.0) mg/dL Ur Leukocyte Esterase (NEGATIVE) SARS-CoV-2 RNA (CHAITANYA) Negative (NEGATIVE) 05/10/21 05/10/21 05/10/21 Range/Units 10:16 10:16 10:16 WBC (5.0-10.0) 10^3/uL RBC (4.6-6.2) 10^6/uL Hgb (14.0-18.0) g/dL Hct (40.0-54.0) % MCV (80-100) fL MCH (27.0-34.0) pg MCHC (33.0-35.0) g/dL Plt Count (150-450) 10^3/uL Neut % (Auto) (42.2-75.2) % Lymph % (Auto) (20.5-50.1) % [place] % (Auto) (2-8) % Eos % (Auto) (1.0-3.0) % Baso % (Auto) (0.0-1.0) % D-Dimer, Quantitative (0-400) ng/mL Sodium 139 (136-145) mmol/L Potassium 3.4 L (3.5-5.1) mmol/L Chloride 101 (98-107) mmol/L Carbon Dioxide 28 (21-32) mmol/L Anion Gap 13.4 H (7-13) mEq/L BUN 14 (7-18) mg/dL Creatinine 0.81 (0.70-1.30) mg/dL Est Cr Clr Drug Dosing 70.27 mL/min Estimated GFR (MDRD) > 60 BUN/Creatinine Ratio 17.3 (No establ ref range) Glucose 127 H (70-99) mg/dL Hemoglobin A1c 5.8 H (<5.7) % Lactic Acid 1.6 (0.4-2.0) mmol/L Calcium 9.1 (8.5-10.1) mg/dL Magnesium (1.8-2.4) mg/dL Total Bilirubin 0.5 (0.2-1.0) mg/dL AST 26 (15-37) U/L ALT 34 (16-63) U/L Alkaline Phosphatase 55 (46-116) U/L Troponin I High Sens 21 (<=76) pg/mL B-Natriuretic Peptide 221 H (0-100) pg/ml Total Protein 7.0 (6.4-8.2) g/dL Albumin 2.8 L (3.4-5.0) g/dL Globulin 4.2 Albumin/Globulin Ratio 0.67 TSH, Ultra Sensitive (0.36-3.74) uIU/mL Urine Color (YELLOW) Urine Appearance (CLEAR) Urine pH (5.0-9.0) Ur Specific [place] (1.005-1.030) Urine Protein (NEGATIVE) Urine Glucose (UA) (NEGATIVE) Urine Ketones (NEGATIVE) Urine Occult Blood (NEGATIVE) Urine Nitrite (NEGATIVE) Urine Bilirubin (NEGATIVE) Urine Urobilinogen (0.2-1.0) mg/dL Ur Leukocyte Esterase (NEGATIVE) SARS-CoV-2 RNA (CHAITANYA) (NEGATIVE) 05/10/21 05/10/21 Range/Units 10:16 12:52 WBC (5.0-10.0) 10^3/uL RBC (4.6-6.2) 10^6/uL Hgb (14.0-18.0) g/dL Hct (40.0-54.0) % MCV (80-100) fL MCH (27.0-34.0) pg MCHC (33.0-35.0) g/dL Plt Count (150-450) 10^3/uL Neut % (Auto) (42.2-75.2) % Lymph % (Auto) (20.5-50.1) % [place] % (Auto) (2-8) % Eos % (Auto) (1.0-3.0) % Baso % (Auto) (0.0-1.0) % D-Dimer, Quantitative (0-400) ng/mL Sodium (136-145) mmol/L Potassium (3.5-5.1) mmol/L Chloride (98-107) mmol/L Carbon Dioxide (21-32) mmol/L Anion Gap (7-13) mEq/L BUN (7-18) mg/dL Creatinine (0.70-1.30) mg/dL Est Cr Clr Drug Dosing mL/min Estimated GFR (MDRD) BUN/Creatinine Ratio (No establ ref range) Glucose (70-99) mg/dL Hemoglobin A1c (<5.7) % Lactic Acid (0.4-2.0) mmol/L Calcium (8.5-10.1) mg/dL Magnesium 1.9 (1.8-2.4) mg/dL Total Bilirubin (0.2-1.0) mg/dL AST (15-37) U/L ALT (16-63) U/L Alkaline Phosphatase (46-116) U/L Troponin I High Sens (<=76) pg/mL B-Natriuretic Peptide (0-100) pg/ml Total Protein (6.4-8.2) g/dL Albumin (3.4-5.0) g/dL Globulin Albumin/Globulin Ratio TSH, Ultra Sensitive 0.69 (0.36-3.74) uIU/mL Urine Color Yellow (YELLOW) Urine Appearance Clear (CLEAR) Urine pH 7.5 (5.0-9.0) Ur Specific [place] 1.015 (1.005-1.030) Urine Protein Negative (NEGATIVE) Urine Glucose (UA) Negative (NEGATIVE) Urine Ketones Negative (NEGATIVE) Urine Occult Blood Negative (NEGATIVE) Urine Nitrite Negative (NEGATIVE) Urine Bilirubin Negative (NEGATIVE) Urine Urobilinogen 0.2 (0.2-1.0) mg/dL Ur Leukocyte Esterase Negative (NEGATIVE) SARS-CoV-2 RNA (CHAITANYA) (NEGATIVE) Luis Results Last 24 Hours: Microbiology 05/10/21 11:05 Gram Stain - Final Sputum - Expectorated Sputum Culture - Preliminary Normal Sarah Med Orders - Current: Current Medications Acetaminophen (Acetaminophen 325 Mg Tab) 650 mg PO Q4H PRN PRN Reason: Pain (Mild 1-3)/fever Albuterol (Albuterol 6.7 Gm Inhaler) 0 gm INH QID HERNAN Last Admin: 05/11/21 08:30 Dose: 2 puff Documented by: Azithromycin (Azithromycin 250 Mg Tab) 250 mg PO DAILY HERNAN Stop: 05/15/21 09:01 Last Admin: 05/11/21 08:41 Dose: 250 mg Documented by: Benzonatate (Benzonatate 100 Mg Cap) 200 mg PO TID PRN PRN Reason: Cough Last Admin: 05/11/21 07:06 Dose: 200 mg Documented by: Ceftriaxone Sodium (Ceftriaxone 2 Gm Vial) 2 gm IV Q24H [facility] Enalapril Maleate (Enalapril 10 Mg Tab) 10 mg PO DAILY [facility] Last Admin: 05/11/21 08:28 Dose: 10 mg Documented by: Enoxaparin Sodium (Enoxaparin 40 Mg/0.4 Ml Syringe) 40 mg SUBCUT DAILY [facility] Last Admin: 05/11/21 08:30 Dose: 40 mg Documented by: Gentamicin Sulfate (Pharmacy To Dose - Gentamicin) 1 dose .XX ASDIRECTED [facility] Hydrochlorothiazide (Hydrochlorothiazide 25 Mg Tab) 25 mg PO DAILY [facility] Last Admin: 05/11/21 08:26 Dose: 25 mg Documented by: Sodium Chloride (Normal Saline) 1,000 mls @ 75 mls/hr IV ASDIRECTED [facility] Last Admin: 05/11/21 08:25 Dose: 75 mls/hr Documented by: Gentamicin Sulfate 480 mg/ (Sodium Chloride) 112 mls @ 224 mls/hr IV Q24H [facility] Last Admin: 05/10/21 20:16 Dose: 224 mls/hr Documented by: Sodium Chloride (Normal Saline) 250 mls @ 999 mls/hr IV ASDIRECTED [facility] Last Infusion: 05/11/21 03:53 Dose: Infused Documented by: Miscellaneous Information (Check Patch *Nicotine*) 1 ea TRDERM BEDTIME [facility] Nicotine (Nicotine 14 Mg/24 Hr Patch) 14 mg TRDERM DAILY [facility] Last Admin: 05/11/21 08:29 Dose: Not Given Documented by: Potassium Chloride (Potassium Chloride 10 Meq Tab.Er) 20 meq PO BIDMEALS [facility] Last Admin: 05/11/21 08:28 Dose: 20 meq Documented by: Simvastatin (Simvastatin 40 Mg Tab) 20 mg PO DAILY [facility] Last Admin: 05/11/21 08:27 Dose: 20 mg Documented by: Tamsulosin HCl (Tamsulosin 0.4 Mg Cap.Er) 0.4 mg PO DAILY [facility] Last Admin: 05/11/21 08:28 Dose: 0.4 mg Documented by: Temazepam (Temazepam 15 Mg Cap) 15 mg PO BEDTIME PRN PRN Reason: Sleep Discontinued Medications Aspirin (Aspirin 81 Mg Tab.Ec) 81 mg PO ONETIME ONE Stop: 05/10/21 22:21 Last Admin: 05/10/21 23:01 Dose: 81 mg Documented by: Ceftriaxone Sodium (Ceftriaxone 1 Gm Vial) 1 gm IV ONETIME ONE Stop: 05/10/21 16:31 Last Admin: 05/10/21 17:08 Dose: 1 gm Documented by: Enalapril Maleate (Enalapril 10 Mg Tab) 10 mg PO ONETIME ONE Stop: 05/10/21 22:16 Last Admin: 05/10/21 23:00 Dose: 10 mg Documented by: Hydrochlorothiazide (Hydrochlorothiazide 25 Mg Tab) 25 mg PO ONETIME ONE Stop: 05/10/21 22:21 Last Admin: 05/10/21 22:59 Dose: 25 mg Documented by: Ceftriaxone Sodium 1 gm/ (Sodium Chloride) 50 mls @ 100 mls/hr IV ONETIME ONE Stop: 05/10/21 13:34 Last Admin: 05/10/21 13:16 Dose: 100 mls/hr Documented by: Ceftriaxone Sodium 2 gm/ (Sodium Chloride) 100 mls @ 200 mls/hr IV Q24H HERNAN Last Admin: 05/11/21 04:00 Dose: Not Given Documented by: Sterile Water (Sterile Water For Injection) Confirm Administered Dose 20 mls @ as directed .ROUTE .STK-MED ONE Stop: 05/10/21 16:56 Last Admin: 05/10/21 17:14 Dose: 10 mls/hr Documented by: Sodium Chloride (Normal Saline) 250 mls @ 999 mls/hr IV ONETIME ONE Stop: 05/10/21 18:50 Last Infusion: 05/10/21 21:58 Dose: Infused Documented by: Sodium Chloride (Normal Saline) 250 mls @ 999 mls/hr IV ONETIME ONE Stop: 05/11/21 08:14 Last Infusion: 05/11/21 08:42 Dose: Infused Documented by: Iopamidol (Iopamidol 755 Mg/Ml 100 Ml Bottle) 100 ml IVPUSH ONETIME ONE Stop: 05/10/21 11:25 Last Admin: 05/10/21 11:54 Dose: 79 ml Documented by: Metoprolol Tartrate (Metoprolol Tartrate 25 Mg Tab) 25 mg PO ONETIME ONE Stop: 05/10/21 22:14 Last Admin: 05/10/21 23:00 Dose: 25 mg Documented by: Metoprolol Tartrate (Metoprolol Tartrate 25 Mg Tab) 25 mg PO ONETIME ONE Stop: 05/11/21 06:46 Last Admin: 05/11/21 07:00 Dose: 25 mg Documented by: Metoprolol Tartrate (Metoprolol Tartrate 25 Mg Tab) 25 mg PO ONETIME ONE Stop: 05/11/21 08:00 Last Admin: 05/11/21 08:24 Dose: 25 mg Documented by: Pneumococcal Polyvalent Vaccine (Pneumococcal Polyvalent-23 Vaccine 0.5 Ml Sdv) 0.5 ml IM .ONCE ONE Stop: 05/10/21 15:11 Potassium Chloride (Potassium Chloride 10 Meq Tab.Er) 20 meq PO ONETIME ONE Stop: 05/10/21 22:05 Last Admin: 05/10/21 22:59 Dose: 20 meq Documented by: - Exam General: Alert, Oriented, Cooperative, No Acute Distress HEENT: Pupils Equal, Pupils Reactive, EOMI, Mucous Membr. Moist/[place] Neck: Supple Lungs: Normal Respiratory Effort, Decreased Breath Sounds, Crackles (at the left base) Cardiovascular: Regular Rhythm, Tachycardia. No: Murmurs GI/Abdominal Exam: Normal Bowel Sounds, Soft, Non-Tender, No Organomegaly, No Distention, No Abnormal Bruit, No Mass (Male) Exam: Deferred Back Exam: Normal Inspection, Full Range of Motion Extremities: Normal Inspection, Normal Range of Motion, Non-Tender, No Pedal Hector ma, Normal Capillary Refill, Limited Range of Motion. No: Kristy's Sign, Leg Pain Peripheral Pulses: 2+: Dorsalis Pedis (L), Dorsalis Pedis (R) Skin: Warm, Dry, Intact Neurological: No New Focal Deficit, Normal Gait Psy/Mental Status: Alert, Normal Affect, Normal Mood - Patient Data Lab Results Last 24 hrs: Laboratory Results - last 24 hr 05/10/21 05/10/21 05/10/21 Range/Units 10:15 10:16 10:16 WBC 10.5 H (5.0-10.0) 10^3/uL RBC 4.35 L (4.6-6.2) 10^6/uL Hgb 13.9 L (14.0-18.0) g/dL Hct 41.1 (40.0-54.0) % MCV 94.5 (80-100) fL MCH 32.0 (27.0-34.0) pg MCHC 33.8 (33.0-35.0) g/dL Plt Count 182 (150-450) 10^3/uL Neut % (Auto) 73.5 (42.2-75.2) % Lymph % (Auto) 16.5 L (20.5-50.1) % [place] % (Auto) 8.5 H (2-8) % Eos % (Auto) 1.3 (1.0-3.0) % Baso % (Auto) 0.2 (0.0-1.0) % D-Dimer, Quantitative 2720 H (0-400) ng/mL Sodium (136-145) mmol/L Potassium (3.5-5.1) mmol/L Chloride (98-107) mmol/L Carbon Dioxide (21-32) mmol/L Anion Gap (7-13) mEq/L BUN (7-18) mg/dL Creatinine (0.70-1.30) mg/dL Est Cr Clr Drug Dosing mL/min Estimated GFR (MDRD) BUN/Creatinine Ratio (No establ ref range) Glucose (70-99) mg/dL Hemoglobin A1c (<5.7) % Lactic Acid (0.4-2.0) mmol/L Calcium (8.5-10.1) mg/dL Magnesium (1.8-2.4) mg/dL Total Bilirubin (0.2-1.0) mg/dL AST (15-37) U/L ALT (16-63) U/L Alkaline Phosphatase (46-116) U/L Troponin I High Sens (<=76) pg/mL B-Natriuretic Peptide (0-100) pg/ml Total Protein (6.4-8.2) g/dL Albumin (3.4-5.0) g/dL Globulin Albumin/Globulin Ratio TSH, Ultra Sensitive (0.36-3.74) uIU/mL Urine Color (YELLOW) Urine Appearance (CLEAR) Urine pH (5.0-9.0) Ur Specific [place] (1.005-1.030) Urine Protein (NEGATIVE) Urine Glucose (UA) (NEGATIVE) Urine Ketones (NEGATIVE) Urine Occult Blood (NEGATIVE) Urine Nitrite (NEGATIVE) Urine Bilirubin (NEGATIVE) Urine Urobilinogen (0.2-1.0) mg/dL Ur Leukocyte Esterase (NEGATIVE) SARS-CoV-2 RNA (CHAITANYA) Negative (NEGATIVE) 05/10/21 05/10/21 05/10/21 Range/Units 10:16 10:16 10:16 WBC (5.0-10.0) 10^3/uL RBC (4.6-6.2) 10^6/uL Hgb (14.0-18.0) g/dL Hct (40.0-54.0) % MCV (80-100) fL MCH (27.0-34.0) pg MCHC (33.0-35.0) g/dL Plt Count (150-450) 10^3/uL Neut % (Auto) (42.2-75.2) % Lymph % (Auto) (20.5-50.1) % [place] % (Auto) (2-8) % Eos % (Auto) (1.0-3.0) % Baso % (Auto) (0.0-1.0) % D-Dimer, Quantitative (0-400) ng/mL Sodium 139 (136-145) mmol/L Potassium 3.4 L (3.5-5.1) mmol/L Chloride 101 (98-107) mmol/L Carbon Dioxide 28 (21-32) mmol/L Anion Gap 13.4 H (7-13) mEq/L BUN 14 (7-18) mg/dL Creatinine 0.81 (0.70-1.30) mg/dL Est Cr Clr Drug Dosing 70.27 mL/min Estimated GFR (MDRD) > 60 BUN/Creatinine Ratio 17.3 (No establ ref range) Glucose 127 H (70-99) mg/dL Hemoglobin A1c 5.8 H (<5.7) % Lactic Acid 1.6 (0.4-2.0) mmol/L Calcium 9.1 (8.5-10.1) mg/dL Magnesium (1.8-2.4) mg/dL Total Bilirubin 0.5 (0.2-1.0) mg/dL AST 26 (15-37) U/L ALT 34 (16-63) U/L Alkaline Phosphatase 55 (46-116) U/L Troponin I High Sens 21 (<=76) pg/mL B-Natriuretic Peptide 221 H (0-100) pg/ml Total Protein 7.0 (6.4-8.2) g/dL Albumin 2.8 L (3.4-5.0) g/dL Globulin 4.2 Albumin/Globulin Ratio 0.67 TSH, Ultra Sensitive (0.36-3.74) uIU/mL Urine Color (YELLOW) Urine Appearance (CLEAR) Urine pH (5.0-9.0) Ur Specific [place] (1.005-1.030) Urine Protein (NEGATIVE) Urine Glucose (UA) (NEGATIVE) Urine Ketones (NEGATIVE) Urine Occult Blood (NEGATIVE) Urine Nitrite (NEGATIVE) Urine Bilirubin (NEGATIVE) Urine Urobilinogen (0.2-1.0) mg/dL Ur Leukocyte Esterase (NEGATIVE) SARS-CoV-2 RNA (CHAITANYA) (NEGATIVE) 05/10/21 05/10/21 Range/Units 10:16 12:52 WBC (5.0-10.0) 10^3/uL RBC (4.6-6.2) 10^6/uL Hgb (14.0-18.0) g/dL Hct (40.0-54.0) % MCV (80-100) fL MCH (27.0-34.0) pg MCHC (33.0-35.0) g/dL Plt Count (150-450) 10^3/uL Neut % (Auto) (42.2-75.2) % Lymph % (Auto) (20.5-50.1) % [place] % (Auto) (2-8) % Eos % (Auto) (1.0-3.0) % Baso % (Auto) (0.0-1.0) % D-Dimer, Quantitative (0-400) ng/mL Sodium (136-145) mmol/L Potassium (3.5-5.1) mmol/L Chloride (98-107) mmol/L Carbon Dioxide (21-32) mmol/L Anion Gap (7-13) mEq/L BUN (7-18) mg/dL Creatinine (0.70-1.30) mg/dL Est Cr Clr Drug Dosing mL/min Estimated GFR (MDRD) BUN/Creatinine Ratio (No establ ref range) Glucose (70-99) mg/dL Hemoglobin A1c (<5.7) % Lactic Acid (0.4-2.0) mmol/L Calcium (8.5-10.1) mg/dL Magnesium 1.9 (1.8-2.4) mg/dL Total Bilirubin (0.2-1.0) mg/dL AST (15-37) U/L ALT (16-63) U/L Alkaline Phosphatase (46-116) U/L Troponin I High Sens (<=76) pg/mL B-Natriuretic Peptide (0-100) pg/ml Total Protein (6.4-8.2) g/dL Albumin (3.4-5.0) g/dL Globulin Albumin/Globulin Ratio TSH, Ultra Sensitive 0.69 (0.36-3.74) uIU/mL Urine Color Yellow (YELLOW) Urine Appearance Clear (CLEAR) Urine pH 7.5 (5.0-9.0) Ur Specific [place] 1.015 (1.005-1.030) Urine Protein Negative (NEGATIVE) Urine Glucose (UA) Negative (NEGATIVE) Urine Ketones Negative (NEGATIVE) Urine Occult Blood Negative (NEGATIVE) Urine Nitrite Negative (NEGATIVE) Urine Bilirubin Negative (NEGATIVE) Urine Urobilinogen 0.2 (0.2-1.0) mg/dL Ur Leukocyte Esterase Negative (NEGATIVE) SARS-CoV-2 RNA (CHAITANYA) (NEGATIVE) Result Diagrams: 05/13/21 06:33 05/13/21 06:33 Luis Results Last 24 hrs: Microbiology 05/10/21 11:05 Gram Stain - Final Sputum - Expectorated Sputum Culture - Preliminary Normal Sarah Sepsis Event Note - Evaluation Sepsis Screening Result: Sepsis Risk - Focused Exam Vital Signs: Vital Signs Temp Pulse Pulse Resp BP BP Pulse Ox 05/11/21 08:50 155 H 132/88 05/11/21 08:28 146/117 H 05/11/21 08:24 149 H 146/117 H 05/11/21 08:00 36.2 C 138 H 30 H 146/117 H 95 05/11/21 07:00 156 H 139/108 H 05/11/21 06:51 36.4 C 158 H 28 H 139/108 H 92 L 05/11/21 03:14 36.6 C 72 24 H 142/86 H 95 05/11/21 00:51 82 26 H 137/73 95 05/10/21 23:00 91 143/104 H 05/10/21 22:55 36.6 C 94 24 H 142/104 H 95 - Problem List Review Problem List Initiated/Reviewed/Updated: Yes - Assessment Assessment:: This is a 68-year-old gentleman who was admitted for community-acquired pneumonia currently being worked on for presumptive COVID-19 infection. Assessment: Acute: Community-acquired pneumonia/moderate right parabronchial and right lower lobe pneumonia; sputum and blood cultures negative day 1 Questionable COVID-19 pneumonitis; fully vaccinated with moderate; rapid Covid test x2 were both PCR negative Leukocytosis with WBC of 12K Sinus tachycardia with TSH of 0.69 (wnl); high-sensitivity troponin x2 are both within normal limits Questionable atrial flutter not obvious on EKG and telemetry; unresponsive to metoprolol, improved little bit with Cardizem bolus Accelerated hypertension 10.5, now 12 with normal lactic acid level Elevated D-dimer of 2721; negative chest CTA for PE Hepatic congestion noted on chest CTA; will obtain abdominal ultrasound to rule out liver disease PE hiatal hernia noted on chest CTA Mild hypokalemia with potassium of 3.4 Elevated anion gap of 13.4 Hyperglycemia with a glucose of 127, carries no history of glucose intolerance or type 2 diabetes; A1c is 5.8 Class I obesity with BMI of 35 Chronic: Hypertension Hyperlipidemia BPH History of Jose D's erosion Diverticulosis History of ischemic colitis Urinary incontinence History of urethral strictures status post dilation Obstructive sleep apnea - Plan Plan:: Plan: Patient does not appear to be septic but concerns for developing sepsis We will order inflammatory markers and repeat COVID-19 markers: ESR, CRP, D- dimer, and ferritin Continue with empiric antibiotic azithromycin and rocephin day #2 We will discontinue gentamicin as there is no indications for escalation of antibiotic requirement As needed electrolyte replacement protocol EKG if not already done; TSH level is within normal needs 2D echo to assess for cardiac dysfunction given history of tachycardia Trial of Cardizem bolus x1 10 mg IV push for tachycardia and hypertension Patient has not been responding to metoprolol for heart rate control agent; if he responds to treatment we will continue 10 mg IV Cardizem every 6 for heart ra te greater than 110 and for blood pressure control greater than 150/90 mmHg Duplex ultrasound to rule out DVT due to elevated D-dimer Flutter valve and incentive spirometry for pulmonary exercise As needed decongestant and expectorant Nutritional medicine consult for weight management Resume home medications for finasteride and amlodipine Abdominal ultrasound tomorrow for hepatic congestion To note, patient will not benefit with presumptive treatment of remdesivir since it has been 2 weeks since onset of respiratory symptoms DVT/Stroke prophylaxis: We will convert to therapeutic dose of 1 mg/kg every 12 due to elevated D-dimer and with presumptive treatment of COVID-19; patient is currently receiving 40 mg subcu we will add 60 mg subcu for for therapeutic dose of 100 mg subcu for morning dose Discharge disposition awaiting response to treatment: He may need inpatient treatment for at least 96 hrs Critical care time spent: > 40 mins
[2021-05-11] MEDS ORDERED: Potassium Chloride 10 MEQ in Premix Bag 1 BAG IV PRN (10:12)
[2021-05-11] MEDS ORDERED: Enoxaparin 40 MG/0.4 ML Syringe SUBCUT ONE (10:30)
[2021-05-11] MEDS ORDERED: Enoxaparin 60 MG/0.6 ML Syringe SUBCUT ONE (10:30)
--- NOTE | 2021-05-11 11:10 | PCM.SN.2 ---
- Free Text/Narrative Note: 1109: Patient responded to one-time bolus of Cardizem 10 mg IV push improving his heart rate to mid teens to 120s. We will try another dose of Cardizem 10 mg for a total of 20 mg IV push this morning. 1157: Duplex ultrasound showed no DVTs. Patient appears to be unresponsive to metoprolol. However he did respond to bolus Cardizem earlier. He is hypertensive and tachycardic with heart rate in the 150s. We will go ahead and put him on Cardizem drip. I am hoping we can get his 2D echo done today. We will initiate hypertensive work-up. 1236: Unfortunately we do not do renal artery studies here at this facility. 1322: Patient blood pressure responded to Cardizem drip however he still remains tachycardic with heart rate in the 150s-160s. It is unlikely that we are going to get a stat report fo his 2D echo. At this point, it would be reasonable to start him on digoxin for rate control agent. 1400: Called [facility] to speak to with the on-call administrative services assistant for advice. Spoke to Dr. Johnson and went over case with him. EKG forwarded to him to confirm atrial flutter. Informed him metoprolol was not working for this gentleman but barely responsive to Cardizem. He currently on Cardizem drip but it starting to affect his blood pressure. He recommended to heparinize the patient but patient is already on therapeutic dose of Lovenox. He recommended to continue with Cardizem as it may take a while for some patients to respond to treatment as long as he remains asymptomatic. Informed Dr. Johnson high sensitive troponin today and yesterday were both within normal limits. He advised to cardiovert h im if the patient started to decompensate. 1406: Re-assessed patient at bedside. He denies having chest pain or pulmonary complaints. We will continue to monitor patient and reassess him routinely. We will go ahead and resume Cardizem drip. Critical time spent: > 45 mins Time Documentation - Time Based Documentation Time Includes the Following: Time Spent [id number] with the Patient
--- NOTE | 2021-05-11 11:50 | US ---
EXAMINATION: Venous Doppler Lwr Ext Bi SEX: Male AGE: 76 years CLINICAL HISTORY: 76-year-old hospitalized male abnormally elevated serum D dimer, shortness of breath and tachycardia. Rule out DVT. Interpretation: Negative exam. No sonographic evidence DVT lower extremities. No sign of intraluminal echogenic thrombus/normal compressibility deep veins both lower extremities. Satisfactory augmentation and venous waveforms demonstrated respectively in the anterior/posterior tibial veins of the left lower extremity and the anterior tibial veins of the right lower extremity; good flow in the popliteal veins behind both knees; and, augmentation of flow demonstrated proximally in the superficial/common femoral veins both thighs/groins. Patent superficial saphenous veins demonstrated bilaterally. No popliteal or Hayes's cyst. No subcutaneous hematomas.
[2021-05-11] MEDS ORDERED: Metoprolol Tartrate 5 MG/5 ML SDV IVPUSH PRN (12:02)
[2021-05-11] MEDS: Diltiazem 125 MG in Sodium Chloride 0.9% 100 ML IV SCH (12:27)
[2021-05-11] MEDS ORDERED: cloNIDine 0.1 MG Tab PO ONE (12:30)
[2021-05-11] MEDS: Digoxin 500 MCG/2 ML Amp IVPUSH SCH ×2 (13:31→19:36)
[2021-05-11] MEDS: cefTRIAXone 2 GM Vial IV SCH (16:31)
[2021-05-11] MEDS ORDERED: Metoprolol Tartrate 5 MG/5 ML SDV IVPUSH ONE (16:46)
[2021-05-11] MEDS: Enoxaparin 100 MG/1 ML Syringe SUBCUT SCH (20:54)
[2021-05-11] MEDS: Temazepam 15 MG Cap PO PRN (20:56)
[2021-05-11] MEDS: Metoprolol Tartrate 50 MG Tab PO SCH (20:58)
[2021-05-11] MEDS ORDERED: Check Patch *NICOTINE TRDERM SCH (21:00)
[2021-05-11] MEDS ORDERED: Simethicone 80 MG Tab.Chew PO ONE (21:00)
[2021-05-11] MEDS ORDERED: Metoprolol Tartrate 50 MG Tab PO SCH (21:00)
[2021-05-12] MEDS: Digoxin 500 MCG/2 ML Amp IVPUSH SCH ×4 (01:52→19:43)
[2021-05-12] MEDS: Diltiazem 125 MG in Sodium Chloride 0.9% 100 ML IV SCH ×2 (04:27→20:19)
[2021-05-12] MEDS: Sodium Chloride 0.9% 1,000 ML IV SCH ×2 (04:38→19:30)
[2021-05-12] MEDS ORDERED: Simethicone 80 MG Tab.Chew PO ONE (06:00)
--- NOTE | 2021-05-12 06:30 | PCM.PN ---
- General Info Date of Service: 05/12/21 Admission Dx/Problem (Free Text): Admission Diagnosis/Problem Admission Diagnosis/Problem Pneumonia/hemoptysis/elevated d dimer. Subjective Update: No significant overnight issues. Patient states he feels a bit better. He rep orts no chest pain or shortness of breath. He still has some lingering cough but he is not coughing up anything. He denies having heart palpitations. No fever or chills. No lightheadedness or dizziness. He is drinking and eating fine. No complaints. His last bowel movement was couple days ago. His blood pressures have improved. His heart rate in this morning was fluctuating in the low 80s to 120s. He remains on 2 L nasal cannula satting well adequately. His WBC remains at 12,000. His sodium level is slightly low at 134 and his magnesium is mildly low at 1.7. His CRP now is down to 4.4 from 6.9 yesterday. Functional Status: Reports: Pain Controlled, Tolerating Diet, Ambulating, Urinating, Incentive Spirometry. Denies: New Symptoms - Review of Systems General: Denies: Fever, Weakness, Fatigue, Malaise HEENT: Denies: Dysphasia, Sinus Congestion Pulmonary: Reports: Cough. Denies: Shortness of Breath, Pleuritic Chest Pain, Sputum, Wheezing Cardiovascular: Denies: Chest Pain, Palpitations, Dyspnea on Exertion, Lightheadedness Gastrointestinal: Denies: Abdominal Pain, Nausea, Vomiting Genitourinary: Denies: Frequency, Urgency Musculoskeletal: Reports: No Symptoms Skin: Reports: No Symptoms Neurological: Denies: Confusion, Syncope, Difficulty Walking, Gait Disturbance Psychiatric: Denies: Depression, Mood Lability, Anxiety, Hallucinations, Suicidal Ideation, Homicidal Ideation - Patient Data Vitals - Most Recent: Last Vital Signs Temp 36.7 C 05/12/21 05:00 Pulse 108 H 05/12/21 06:00 Resp 24 H 05/12/21 06:00 BP 128/80 05/12/21 06:00 Pulse Ox 92 L 05/12/21 06:00 Weight - Most Recent: 104.508 kg I&O - Last 24 Hours: Intake & Output 05/11/21 05/11/21 05/12/21 14:59 22:59 06:59 Intake Total 1580 1290 200 Output Total 1900 375 800 Balance -320 915 -600 Lab Results Last 24 Hours: Laboratory Results - last 24 hr 05/11/21 05/11/21 05/11/21 Range/Units 10:05 10:05 10:05 WBC 12.0 H (5.0-10.0) 10^3/uL RBC 4.35 L (4.6-6.2) 10^6/uL Hgb 13.9 L (14.0-18.0) g/dL Hct 41.0 (40.0-54.0) % MCV 94.3 (80-100) fL MCH 32.0 (27.0-34.0) pg MCHC 33.9 (33.0-35.0) g/dL Plt Count 204 (150-450) 10^3/uL Neut % (Auto) 79.5 H (42.2-75.2) % Lymph % (Auto) 12.2 L (20.5-50.1) % Lake % (Auto) 7.2 (2-8) % Eos % (Auto) 1.0 (1.0-3.0) % Baso % (Auto) 0.1 (0.0-1.0) % Add Manual Diff Yes Neutrophils % (Manual) 70 (42-75) % Band Neutrophils % 11 % Lymphocytes % (Manual) 13 L (20-50) % Monocytes % (Manual) 5 (2-8) % Eosinophils % (Manual) 1 (1-3) % D-Dimer, Quantitative 1460 H (0-400) ng/mL Lactic Acid (0.4-2.0) mmol/L Ferritin 417 H (26-388) mg/mL Troponin I High Sens (<=76) pg/mL C-Reactive Protein (0.0-0.9) mg/dL Free T4 (0.76-1.46) ng/dL Cortisol ug/dL 05/11/21 05/11/21 05/11/21 Range/Units 10:05 10:05 10:05 WBC (5.0-10.0) 10^3/uL RBC (4.6-6.2) 10^6/uL Hgb (14.0-18.0) g/dL Hct (40.0-54.0) % MCV (80-100) fL MCH (27.0-34.0) pg MCHC (33.0-35.0) g/dL Plt Count (150-450) 10^3/uL Neut % (Auto) (42.2-75.2) % Lymph % (Auto) (20.5-50.1) % Lake % (Auto) (2-8) % Eos % (Auto) (1.0-3.0) % Baso % (Auto) (0.0-1.0) % Add Manual Diff Neutrophils % (Manual) (42-75) % Band Neutrophils % % Lymphocytes % (Manual) (20-50) % Monocytes % (Manual) (2-8) % Eosinophils % (Manual) (1-3) % D-Dimer, Quantitative (0-400) ng/mL Lactic Acid (0.4-2.0) mmol/L Ferritin (26-388) mg/mL Troponin I High Sens 15 (<=76) pg/mL C-Reactive Protein 6.9 H (0.0-0.9) mg/dL Free T4 1.22 (0.76-1.46) ng/dL Cortisol ug/dL 05/11/21 05/11/21 05/11/21 Range/Units 10:05 11:32 18:40 WBC (5.0-10.0) 10^3/uL RBC (4.6-6.2) 10^6/uL Hgb (14.0-18.0) g/dL Hct (40.0-54.0) % MCV (80-100) fL MCH (27.0-34.0) pg MCHC (33.0-35.0) g/dL Plt Count (150-450) 10^3/uL Neut % (Auto) (42.2-75.2) % Lymph % (Auto) (20.5-50.1) % Lake % (Auto) (2-8) % Eos % (Auto) (1.0-3.0) % Baso % (Auto) (0.0-1.0) % Add Manual Diff Neutrophils % (Manual) (42-75) % Band Neutrophils % % Lymphocytes % (Manual) (20-50) % Monocytes % (Manual) (2-8) % Eosinophils % (Manual) (1-3) % D-Dimer, Quantitative (0-400) ng/mL Lactic Acid 1.3 (0.4-2.0) mmol/L Ferritin (26-388) mg/mL Troponin I High Sens 16 (<=76) pg/mL C-Reactive Protein (0.0-0.9) mg/dL Free T4 (0.76-1.46) ng/dL Cortisol 15.5 ug/dL 05/11/21 Range/Units 23:25 WBC (5.0-10.0) 10^3/uL RBC (4.6-6.2) 10^6/uL Hgb (14.0-18.0) g/dL Hct (40.0-54.0) % MCV (80-100) fL MCH (27.0-34.0) pg MCHC (33.0-35.0) g/dL Plt Count (150-450) 10^3/uL Neut % (Auto) (42.2-75.2) % Lymph % (Auto) (20.5-50.1) % Lake % (Auto) (2-8) % Eos % (Auto) (1.0-3.0) % Baso % (Auto) (0.0-1.0) % Add Manual Diff Neutrophils % (Manual) (42-75) % Band Neutrophils % % Lymphocytes % (Manual) (20-50) % Monocytes % (Manual) (2-8) % Eosinophils % (Manual) (1-3) % D-Dimer, Quantitative (0-400) ng/mL Lactic Acid (0.4-2.0) mmol/L Ferritin (26-388) mg/mL Troponin I High Sens 18 (<=76) pg/mL C-Reactive Protein (0.0-0.9) mg/dL Free T4 (0.76-1.46) ng/dL Cortisol ug/dL Luis Results Last 24 Hours: Microbiology 05/10/21 10:16 Aerobic Blood Culture - Preliminary Blood - Venous - Iv Start NO GROWTH AFTER 1 DAY Anaerobic Blood Culture - Preliminary NO GROWTH AFTER 1 DAY 05/10/21 11:05 Gram Stain - Final Sputum - Expectorated Sputum Culture - Preliminary Normal Sarah Med Orders - Current: Current Medications Acetaminophen (Acetaminophen 325 Mg Tab) 650 mg PO Q4H PRN PRN Reason: Pain (Mild 1-3)/fever Last Admin: 05/11/21 20:59 Dose: 650 mg Documented by: Albuterol (Albuterol 6.7 Gm Inhaler) 0 gm INH QID REPLACED BY [facility] Last Admin: 05/11/21 20:54 Dose: 2 puff Documented by: Amlodipine Besylate (Amlodipine 5 Mg Tab) 5 mg PO DAILY REPLACED BY [facility] Azithromycin (Azithromycin 250 Mg Tab) 250 mg PO DAILY REPLACED BY [facility] Stop: 05/15/21 09:01 Last Admin: 05/11/21 08:41 Dose: 250 mg Documented by: Benzonatate (Benzonatate 100 Mg Cap) 200 mg PO TID PRN PRN Reason: Cough Last Admin: 05/11/21 07:06 Dose: 200 mg Documented by: Ceftriaxone Sodium (Ceftriaxone 2 Gm Vial) 2 gm IV Q24H REPLACED BY [facility] Last Admin: 05/11/21 16:31 Dose: 2 gm Documented by: Digoxin (Digoxin 500 Mcg/2 Ml Amp) 250 mcg IVPUSH Q6H REPLACED BY [facility] Last Admin: 05/12/21 01:52 Dose: 250 mcg Documented by: Enalapril Maleate (Enalapril 10 Mg Tab) 10 mg PO DAILY REPLACED BY [facility] Last Admin: 05/11/21 08:28 Dose: 10 mg Documented by: Enoxaparin Sodium (Enoxaparin 100 Mg/1 Ml Syringe) 100 mg SUBCUT BID REPLACED BY [facility] Last Admin: 05/11/21 20:54 Dose: 100 mg Documented by: Finasteride (Finasteride 5 Mg Tab) 5 mg PO DAILY REPLACED BY [facility] Hydrochlorothiazide (Hydrochlorothiazide 25 Mg Tab) 25 mg PO DAILY REPLACED BY [facility] Last Admin: 05/11/21 08:26 Dose: 25 mg Documented by: Sodium Chloride (Normal Saline) 1,000 mls @ 75 mls/hr IV ASDIRECTED REPLACED BY [facility] Last Admin: 05/12/21 04:38 Dose: 75 mls/hr Documented by: Diltiazem HCl 125 mg/ Sodium (Chloride) 125 mls @ 5 mls/hr IV TITRATE REPLACED BY [facility]; Protocol Last Admin: 05/12/21 04:27 Dose: 5 mg/hr, 5 mls/hr Documented by: Metoprolol Tartrate (Metoprolol Tartrate 50 Mg Tab) 50 mg PO Q12H REPLACED BY [facility] Last Admin: 05/11/21 20:58 Dose: 50 mg Documented by: Potassium Chloride (Potassium Chloride 10 Meq Tab.Er) 20 meq PO BIDMEALS REPLACED BY [facility] Last Admin: 05/11/21 17:00 Dose: 20 meq Documented by: Simvastatin (Simvastatin 40 Mg Tab) 20 mg PO DAILY REPLACED BY [facility] Last Admin: 05/11/21 08:27 Dose: 20 mg Documented by: Tamsulosin HCl (Tamsulosin 0.4 Mg Cap.Er) 0.4 mg PO DAILY REPLACED BY [facility] Last Admin: 05/11/21 08:28 Dose: 0.4 mg Documented by: Temazepam (Temazepam 15 Mg Cap) 15 mg PO BEDTIME PRN PRN Reason: Sleep Last Admin: 05/11/21 20:56 Dose: 15 mg Documented by: Discontinued Medications Aspirin (Aspirin 81 Mg Tab.Ec) 81 mg PO ONETIME ONE Stop: 05/10/21 22:21 Last Admin: 05/10/21 23:01 Dose: 81 mg Documented by: Ceftriaxone Sodium (Ceftriaxone 1 Gm Vial) 1 gm IV ONETIME ONE Stop: 05/10/21 16:31 Last Admin: 05/10/21 17:08 Dose: 1 gm Documented by: Clonidine HCl (Clonidine 0.1 Mg Tab) 0.1 mg PO ONETIME ONE Stop: 05/11/21 12:31 Last Admin: 05/11/21 12:37 Dose: 0.1 mg Documented by: Diltiazem HCl (Diltiazem 25 Mg/5 Ml Sdv) 20 mg IVPUSH ONETIME ONE Stop: 05/11/21 10:06 Last Admin: 05/11/21 11:25 Dose: Not Given Documented by: Diltiazem HCl (Diltiazem 25 Mg/5 Ml Sdv) 10 mg IVPUSH ONETIME ONE Stop: 05/11/21 10:19 Last Admin: 05/11/21 10:42 Dose: 10 mg Documented by: Diltiazem HCl (Diltiazem 25 Mg/5 Ml Sdv) 10 mg IVPUSH ONETIME ONE Stop: 05/11/21 11:09 Last Admin: 05/11/21 11:25 Dose: 10 mg Documented by: Diltiazem HCl (Diltiazem 25 Mg/5 Ml Sdv) 5 mg IVPUSH ONETIME ONE Stop: 05/11/21 15:26 Last Admin: 05/11/21 15:32 Dose: 5 mg Documented by: Enalapril Maleate (Enalapril 10 Mg Tab) 10 mg PO ONETIME ONE Stop: 05/10/21 22:16 Last Admin: 05/10/21 23:00 Dose: 10 mg Documented by: Enoxaparin Sodium (Enoxaparin 40 Mg/0.4 Ml Syringe) 40 mg SUBCUT DAILY REPLACED BY [facility] Last Admin: 05/11/21 08:30 Dose: 40 mg Documented by: Enoxaparin Sodium (Enoxaparin 40 Mg/0.4 Ml Syringe) 60 mg SUBCUT ONETIME ONE Stop: 05/11/21 10:31 Enoxaparin Sodium (Enoxaparin 60 Mg/0.6 Ml Syringe) 60 mg SUBCUT ONETIME ONE Stop: 05/11/21 10:31 Last Admin: 05/11/21 10:42 Dose: 60 mg Documented by: Gentamicin Sulfate (Pharmacy To Dose - Gentamicin) 1 dose .XX ASDIRECTED REPLACED BY [facility] Hydrochlorothiazide (Hydrochlorothiazide 25 Mg Tab) 25 mg PO ONETIME ONE Stop: 05/10/21 22:21 Last Admin: 05/10/21 22:59 Dose: 25 mg Documented by: Ceftriaxone Sodium 1 gm/ (Sodium Chloride) 50 mls @ 100 mls/hr IV ONETIME ONE Stop: 05/10/21 13:34 Last Admin: 05/10/21 13:16 Dose: 100 mls/hr Documented by: Ceftriaxone Sodium 2 gm/ (Sodium Chloride) 100 mls @ 200 mls/hr IV Q24H REPLACED BY [facility] Last Admin: 05/11/21 04:00 Dose: Not Given Documented by: Sterile Water (Sterile Water For Injection) Confirm Administered Dose 20 mls @ as directed .ROUTE .STK-MED ONE Stop: 05/10/21 16:56 Last Admin: 05/10/21 17:14 Dose: 10 mls/hr Documented by: Sodium Chloride (Normal Saline) 250 mls @ 999 mls/hr IV ONETIME ONE Stop: 05/10/21 18:50 Last Infusion: 05/10/21 21:58 Dose: Infused Documented by: Gentamicin Sulfate 480 mg/ (Sodium Chloride) 112 mls @ 224 mls/hr IV Q24H REPLACED BY [facility] Last Admin: 05/10/21 20:16 Dose: 224 mls/hr Documented by: Sodium Chloride (Normal Saline) 250 mls @ 999 mls/hr IV ASDIRECTED REPLACED BY [facility] Last Infusion: 05/11/21 03:53 Dose: Infused Documented by: Sodium Chloride (Normal Saline) 250 mls @ 999 mls/hr IV ONETIME ONE Stop: 05/11/21 08:14 Last Infusion: 05/11/21 08:42 Dose: Infused Documented by: Potassium Chloride 10 meq/ (Premix) 100 mls @ 100 mls/hr IV ASDIRECTED PRN PRN Reason: Other Iopamidol (Iopamidol 755 Mg/Ml 100 Ml Bottle) 100 ml IVPUSH ONETIME ONE Stop: 05/10/21 11:25 Last Admin: 05/10/21 11:54 Dose: 79 ml Documented by: Metoprolol Tartrate (Metoprolol Tartrate 25 Mg Tab) 25 mg PO ONETIME ONE Stop: 05/10/21 22:14 Last Admin: 05/10/21 23:00 Dose: 25 mg Documented by: Metoprolol Tartrate (Metoprolol Tartrate 25 Mg Tab) 25 mg PO ONETIME ONE Stop: 05/11/21 06:46 Last Admin: 05/11/21 07:00 Dose: 25 mg Documented by: Metoprolol Tartrate (Metoprolol Tartrate 25 Mg Tab) 25 mg PO ONETIME ONE Stop: 05/11/21 08:00 Last Admin: 05/11/21 08:24 Dose: 25 mg Documented by: Metoprolol Tartrate (Metoprolol Tartrate 5 Mg/5 Ml Sdv) 5 mg IVPUSH Q4H PRN PRN Reason: Tachycardia Metoprolol Tartrate (Metoprolol Tartrate 50 Mg Tab) 50 mg PO Q12H HERNAN Metoprolol Tartrate (Metoprolol Tartrate 5 Mg/5 Ml Sdv) 5 mg IVPUSH ONETIME ONE Stop: 05/11/21 16:47 Last Admin: 05/11/21 16:58 Dose: 5 mg Documented by: Miscellaneous Information (Check Patch *Nicotine*) 1 ea TRDERM BEDTIME HERNAN Nicotine (Nicotine 14 Mg/24 Hr Patch) 14 mg TRDERM DAILY HERNAN Last Admin: 05/11/21 08:29 Dose: Not Given Documented by: Pneumococcal Polyvalent Vaccine (Pneumococcal Polyvalent-23 Vaccine 0.5 Ml Sdv) 0.5 ml IM .ONCE ONE Stop: 05/10/21 15:11 Potassium Chloride (Potassium Chloride 10 Meq Tab.Er) 20 meq PO ONETIME ONE Stop: 05/10/21 22:05 Last Admin: 05/10/21 22:59 Dose: 20 meq Documented by: Simethicone (Simethicone 80 Mg Tab.Chew) 160 mg PO ONETIME ONE Stop: 05/11/21 21:01 Last Admin: 05/11/21 20:55 Dose: 160 mg Documented by: Simethicone (Simethicone 80 Mg Tab.Chew) 80 mg PO ONETIME ONE Stop: 05/12/21 06:01 Last Admin: 05/12/21 05:54 Dose: 80 mg Documented by: - Exam Quality Assessment: Supplemental Oxygen. No: Urine Catheter General: Alert, Oriented, Cooperative, No Acute Distress HEENT: Pupils Equal, Pupils Reactive, EOMI, Mucous Membr. Moist/Ramirez-Perez Neck: Supple, No Thyromegaly Lungs: Clear to Auscultation, Normal Respiratory Effort Cardiovascular: No Murmurs, Irregular Rhythm, Tachycardia GI/Abdominal Exam: Normal Bowel Sounds, Soft, Non-Tender, No Organomegaly, No Distention, No Abnormal Bruit, No Mass (Male) Exam: Deferred Back Exam: Normal Inspection, Full Range of Motion Extremities: Normal Inspection, Normal Range of Motion, Non-Tender, No Pedal Edema, Normal Capillary Refill Peripheral Pulses: 2+: Dorsalis Pedis (L), Dorsalis Pedis (R) Skin: Warm, Dry, Intact Neurological: No New Focal Deficit Psy/Mental Status: Alert, Normal Affect, Normal Mood - Patient Data Lab Results Last 24 hrs: Laboratory Results - last 24 hr 05/11/21 05/11/21 05/11/21 Range/Units 10:05 10:05 10:05 WBC 12.0 H (5.0-10.0) 10^3/uL RBC 4.35 L (4.6-6.2) 10^6/uL Hgb 13.9 L (14.0-18.0) g/dL Hct 41.0 (40.0-54.0) % MCV 94.3 (80-100) fL MCH 32.0 (27.0-34.0) pg MCHC 33.9 (33.0-35.0) g/dL Plt Count 204 (150-450) 10^3/uL Neut % (Auto) 79.5 H (42.2-75.2) % Lymph % (Auto) 12.2 L (20.5-50.1) % Lake % (Auto) 7.2 (2-8) % Eos % (Auto) 1.0 (1.0-3.0) % Baso % (Auto) 0.1 (0.0-1.0) % Add Manual Diff Yes Neutrophils % (Manual) 70 (42-75) % Band Neutrophils % 11 % Lymphocytes % (Manual) 13 L (20-50) % Monocytes % (Manual) 5 (2-8) % Eosinophils % (Manual) 1 (1-3) % D-Dimer, Quantitative 1460 H (0-400) ng/mL Lactic Acid (0.4-2.0) mmol/L Ferritin 417 H (26-388) mg/mL Troponin I High Sens (<=76) pg/mL C-Reactive Protein (0.0-0.9) mg/dL Free T4 (0.76-1.46) ng/dL Cortisol ug/dL 05/11/21 05/11/21 05/11/21 Range/Units 10:05 10:05 10:05 WBC (5.0-10.0) 10^3/uL RBC (4.6-6.2) 10^6/uL Hgb (14.0-18.0) g/dL Hct (40.0-54.0) % MCV (80-100) fL MCH (27.0-34.0) pg MCHC (33.0-35.0) g/dL Plt Count (150-450) 10^3/uL Neut % (Auto) (42.2-75.2) % Lymph % (Auto) (20.5-50.1) % Lake % (Auto) (2-8) % Eos % (Auto) (1.0-3.0) % Baso % (Auto) (0.0-1.0) % Add Manual Diff Neutrophils % (Manual) (42-75) % Band Neutrophils % % Lymphocytes % (Manual) (20-50) % Monocytes % (Manual) (2-8) % Eosinophils % (Manual) (1-3) % D-Dimer, Quantitative (0-400) ng/mL Lactic Acid (0.4-2.0) mmol/L Ferritin (26-388) mg/mL Troponin I High Sens 15 (<=76) pg/mL C-Reactive Protein 6.9 H (0.0-0.9) mg/dL Free T4 1.22 (0.76-1.46) ng/dL Cortisol ug/dL 05/11/21 05/11/21 05/11/21 Range/Units 10:05 11:32 18:40 WBC (5.0-10.0) 10^3/uL RBC (4.6-6.2) 10^6/uL Hgb (14.0-18.0) g/dL Hct (40.0-54.0) % MCV (80-100) fL MCH (27.0-34.0) pg MCHC (33.0-35.0) g/dL Plt Count (150-450) 10^3/uL Neut % (Auto) (42.2-75.2) % Lymph % (Auto) (20.5-50.1) % Lake % (Auto) (2-8) % Eos % (Auto) (1.0-3.0) % Baso % (Auto) (0.0-1.0) % Add Manual Diff Neutrophils % (Manual) (42-75) % Band Neutrophils % % Lymphocytes % (Manual) (20-50) % Monocytes % (Manual) (2-8) % Eosinophils % (Manual) (1-3) % D-Dimer, Quantitative (0-400) ng/mL Lactic Acid 1.3 (0.4-2.0) mmol/L Ferritin (26-388) mg/mL Troponin I High Sens 16 (<=76) pg/mL C-Reactive Protein (0.0-0.9) mg/dL Free T4 (0.76-1.46) ng/dL Cortisol 15.5 ug/dL 05/11/21 Range/Units 23:25 WBC (5.0-10.0) 10^3/uL RBC (4.6-6.2) 10^6/uL Hgb (14.0-18.0) g/dL Hct (40.0-54.0) % MCV (80-100) fL MCH (27.0-34.0) pg MCHC (33.0-35.0) g/dL Plt Count (150-450) 10^3/uL Neut % (Auto) (42.2-75.2) % Lymph % (Auto) (20.5-50.1) % Lake % (Auto) (2-8) % Eos % (Auto) (1.0-3.0) % Baso % (Auto) (0.0-1.0) % Add Manual Diff Neutrophils % (Manual) (42-75) % Band Neutrophils % % Lymphocytes % (Manual) (20-50) % Monocytes % (Manual) (2-8) % Eosinophils % (Manual) (1-3) % D-Dimer, Quantitative (0-400) ng/mL Lactic Acid (0.4-2.0) mmol/L Ferritin (26-388) mg/mL Troponin I High Sens 18 (<=76) pg/mL C-Reactive Protein (0.0-0.9) mg/dL Free T4 (0.76-1.46) ng/dL Cortisol ug/dL Result Diagrams: 05/13/21 06:33 05/13/21 06:33 Luis Results Last 24 hrs: Microbiology 05/10/21 10:16 Aerobic Blood Culture - Preliminary Blood - Venous - Iv Start NO GROWTH AFTER 1 DAY Anaerobic Blood Culture - Preliminary NO GROWTH AFTER 1 DAY 05/10/21 11:05 Gram Stain - Final Sputum - Expectorated Sputum Culture - Preliminary Normal Sarah Sepsis Event Note - Evaluation Sepsis Screening Result: Sepsis Risk - Focused Exam Vital Signs: Vital Signs Temp Pulse Pulse Resp BP BP Pulse Ox 05/12/21 06:00 108 H 24 H 128/80 92 L 05/12/21 05:45 141 H 22 H 94/81 94 L 05/12/21 05:30 139 H 22 H 118/81 93 L 05/12/21 05:15 148 H 26 H 104/80 93 L 05/12/21 05:00 36.7 C 119 H 22 H 143/84 H 93 L 05/12/21 04:45 129 H 26 H 123/111 H 93 L 05/12/21 04:30 139 H 24 H 98/81 94 L 05/12/21 04:15 131 H 22 H 101/77 94 L 05/12/21 04:00 122 H 26 H 123/90 94 L 05/12/21 03:45 121 H 20 114/89 93 L 05/12/21 03:30 135 H 22 H 109/83 94 L 05/12/21 03:15 121 H 22 H 117/63 94 L 05/12/21 03:00 105 H 28 H 136/75 95 05/12/21 02:30 118 H 25 H 124/74 93 L 05/12/21 02:15 118 H 22 H 124/74 93 L 05/12/21 02:00 114 H 23 H 112/61 91 L 05/12/21 01:52 94 05/12/21 01:30 135 H 22 H 101/60 92 L 05/12/21 01:00 131 H 23 H 106/71 94 L 05/12/21 00:30 111 H 23 H 90/78 92 L 05/12/21 00:00 36.4 C 118 H 22 H 116/77 93 L 05/11/21 23:15 134 H 21 H 99/73 93 L 05/11/21 23:00 116 H 24 H 102/59 L 91 L 05/11/21 22:45 104 H 24 H 94/50 L 91 L 05/11/21 22:30 123 H 25 H 93/55 L 92 L 05/11/21 22:15 117 H 22 H 100/61 92 L 05/11/21 22:00 113 H 22 H 105/55 L 92 L 05/11/21 21:45 110 H 24 H 116/83 90 L 05/11/21 21:30 126 H 26 H 105/68 91 L 05/11/21 21:15 131 H 23 H 123/96 H 93 L 05/11/21 20:58 130 H 123/96 H 05/11/21 20:45 128 H 26 H 118/74 94 L 05/11/21 20:30 142 H 25 H 122/75 94 L 05/11/21 20:15 140 H 28 H 134/87 94 L 05/11/21 20:00 36.6 C 114 H 24 H 129/73 94 L 05/11/21 19:45 140 H 23 H 117/91 H 93 L 05/11/21 19:36 150 H 05/11/21 19:21 115 H 125/79 05/11/21 19:15 147 H 107/73 05/11/21 19:00 115 H 32 H 125/79 93 L 05/11/21 18:45 137 H 20 119/77 93 L - Problem List Review Problem List Initiated/Reviewed/Updated: Yes - My Orders Last 24 Hours: My Active Orders 05/11/21 10:05 ALDOSTERONE [REF] Stat RENIN ACTIVITY, PLASMA [REF] Stat 05/11/21 10:09 Echo Comp wo Cont [US] Stat 05/11/21 10:13 Flutter Valve Therapy [RT Chest Physiotherapy] [RC] ASDIRECTED Incentive Spirometry [RT Incentive Spirometry] [RC] ASDIRECTED 05/11/21 10:43 Consult to Dietary [Consult to Compensation Vice President] [CONS] Routine 05/11/21 12:12 METANEPHRINES, FRAC, QN, 24-HR Stat 05/11/21 12:15 Diltiazem 125 mg Sodium Chloride 0.9% [Normal Saline] 100 ml IV TITRATE 05/11/21 13:30 Digoxin [Lanoxin] 250 mcg IVPUSH Q6H 05/11/21 18:14 Communication Order [RC] 05/11/21 21:00 Enoxaparin [Lovenox] 100 mg SUBCUT BID Metoprolol Tartrate [Lopressor] 50 mg PO Q12H 05/12/21 06:00 Abdomen Comp [US] Routine BMP [BASIC METABOLIC PANEL,BMP] [CHEM] DAILY CBC WITH AUTO DIFF [HEME] DAILY CRP [C-REACTIVE PROTEIN] [CHEM] DAILY MAGNESIUM [CHEM] DAILY TROPONIN I HIGH SENSITIVITY [CHEM] Routine 05/12/21 09:00 Finasteride [Proscar] 5 mg PO DAILY amLODIPine [Norvasc] 5 mg PO DAILY 05/13/21 06:00 BMP [BASIC METABOLIC PANEL,BMP] [CHEM] DAILY CBC WITH AUTO DIFF [HEME] DAILY CRP [C-REACTIVE PROTEIN] [CHEM] DAILY MAGNESIUM [CHEM] DAILY 05/14/21 06:00 BMP [BASIC METABOLIC PANEL,BMP] [CHEM] DAILY CBC WITH AUTO DIFF [HEME] DAILY CRP [C-REACTIVE PROTEIN] [CHEM] DAILY MAGNESIUM [CHEM] DAILY 05/15/21 06:00 BMP [BASIC METABOLIC PANEL,BMP] [CHEM] DAILY CBC WITH AUTO DIFF [HEME] DAILY CRP [C-REACTIVE PROTEIN] [CHEM] DAILY MAGNESIUM [CHEM] DAILY 05/16/21 06:00 BMP [BASIC METABOLIC PANEL,BMP] [CHEM] DAILY CBC WITH AUTO DIFF [HEME] DAILY CRP [C-REACTIVE PROTEIN] [CHEM] DAILY MAGNESIUM [CHEM] DAILY - Assessment Assessment:: This is a 68-year-old gentleman who was admitted for community-acquired pneumonia currently being worked on for presumptive COVID-19 infection. Assessment: Acute: Community-acquired pneumonia/moderate right parabronchial and right lower lobe pneumonia; sputum negative day 2; blood cultures appear to have some organisms growing Questionable COVID-19 pneumonitis; fully vaccinated with moderate; inhouse Covid test x 3 were all negative Status post Sinus tachycardia with TSH of 0.69 (wnl); high-sensitivity troponin x3 are both within normal limits Atrial flutter with RVR/new onset; on metoprolol, digoxin, and Cardizem drip; he was in the low 90s to 120s earlier this morning; remains asymptomatic Accelerated hypertension with documented blood pressure as high as 123/111 mm per mercury Leukocytosis with WBC of 10.5, now 12 with normal lactic acid level Elevated D-dimer of 2721; negative chest CTA for PE and duplex ultrasound for DVT Hepatic congestion noted on chest CTA; will obtain abdominal ultrasound to rule out liver disease PE hiatal hernia noted on chest CTA Hyperglycemia with a glucose of 127, carries no history of glucose intolerance or type 2 diabetes; A1c is 5.8; Class I obesity with BMI of 35 Resolved: Mild hypokalemia with potassium of 3.4; resolved now 3.7 Elevated anion gap of 13.4; resolved now 11.7 improved now 104 Chronic: Hypertension Hyperlipidemia BPH History of Jose D's erosion Diverticulosis History of ischemic colitis Urinary incontinence History of urethral strictures status post dilation Obstructive sleep apnea - Plan Plan:: Plan: Patient does not appear to be septic but concern for developing sepsis Continue to monitor inflammatory markers Continue with empiric antibiotic azithromycin and rocephin day #3 Serial EKG shows atrial flutter with RVR and occasional PVCs As needed electrolyte replacement protocol 2D echo completed; awaiting final report Duplex ultrasound negative for DVT Flutter valve and incentive spirometry for pulmonary exercise As needed decongestant and expectorant Nutritional medicine consult for weight management Resume home medications for finasteride and amlodipine Abdominal ultrasound completed awaiting final report Continue metoprolol, digoxin, and Cardizem drip for rate control agents DVT prophylaxis: 100 mg subcu twice daily Lovenox for stroke/DVT prophylaxis Discharge disposition awaiting response to treatment: He may need inpatient treatment for at least 4-5 days Critical care time spent: 30 mins
[2021-05-12 07:01] LABS: ANION GAP 11.7 mEq/L (7-13); CHLORIDE,CL 98 mmol/L (98-107); SODIUM,NA 134 mmol/L (136-145)
[2021-05-12] MEDS ORDERED: Magnesium Sulfate/Water 2 GM in Premix Bag 1 BAG IV ONE (07:50)
[2021-05-12] MEDS: amLODIPine 5 MG Tab PO SCH (09:37)
[2021-05-12] MEDS: Hydrochlorothiazide 25 MG Tab PO SCH (09:37)
[2021-05-12] MEDS: Finasteride 5 MG Tab PO SCH (09:40)
[2021-05-12] MEDS: Potassium Chloride 10 MEQ Tab.ER PO SCH ×2 (09:40→17:08)
[2021-05-12] MEDS: Simvastatin 40 MG Tab PO SCH (09:43)
[2021-05-12] MEDS: Albuterol 6.7 GM Inhaler INH SCH ×4 (09:46→22:55)
[2021-05-12] MEDS: Metoprolol Tartrate 50 MG Tab PO SCH ×3 (09:54→19:43)
[2021-05-12] MEDS: Tamsulosin 0.4 MG Cap.ER PO SCH (09:54)
[2021-05-12] MEDS: Enoxaparin 100 MG/1 ML Syringe SUBCUT SCH ×2 (09:55→20:58)
[2021-05-12] MEDS: Azithromycin 250 MG Tab PO SCH (09:55)
[2021-05-12] MEDS: cefTRIAXone 2 GM Vial IV SCH (16:11)
--- NOTE | 2021-05-12 17:54 | US ---
EXAMINATION: Abdomen Comp SEX: Male AGE: 76 years CLINICAL HISTORY: 76-year-old male with "hepatic congestion." Interpretation: Liver normal size, configuration and homogeneous density. Intrahepatic vascularity unremarkable. No dilatation of the intra or extrahepatic biliary ducts. Gallbladder RUQ normal size and anatomic configuration with uniformly thin wall. No pericystic fluid, mucosal wall polyp or mobile dependent intraluminal echogenic "shadowing" gallstones. Head and body of the pancreas normal. (Tail of pancreas obscured by gas.) No ascites. Note: Several cysts identified upper pole both kidneys (particularly large cysts upper pole right kidney). No urolithiasis or signs of obstructive uropathy. Normal caliber upper abdominal aorta. CONCLUSION: Gallbladder and liver unremarkable. Fractional visualization pancreas. Renal cysts.
[2021-05-12] MEDS: Benzonatate 100 MG Cap PO PRN (20:58)
[2021-05-13] MEDS: Digoxin 500 MCG/2 ML Amp IVPUSH SCH ×2 (01:37→07:22)
[2021-05-13 06:55] LABS: CHLORIDE,CL 98 mmol/L (98-107); SODIUM,NA 132 mmol/L (136-145)
--- NOTE | 2021-05-13 07:11 | PCM.PN ---
- General Info Date of Service: 05/13/21 Admission Dx/Problem (Free Text): Admission Diagnosis/Problem Admission Diagnosis/Problem Pneumonia/hemoptysis/elevated d dimer. Subjective Update: No significant overnight issues. Patient continues to feel better. He reports no chest pain or shortness of breath. He still has some lingering cough but he occasional clear sputum. He denies having heart palpitations. No fever or chills. No lightheadedness or dizziness. He is drinking and eating fine. No complaints. He has not had a bowel movement. His last BM was Monday. As far as his heart rate, he has been mostly in the 60s and 70s with occasional PVCs. He converted to sinus rhythm close to midnight and we titrated down his Cardizem drip to 5 mg/hr. He remains in the 60s with his heart rate this morning. His blood pressure remained stable and better than mine. He remains on 2 L nasal cannula satting well adequately. His WBC now down to 11.7. His s odium level is lower today at 132 and his magnesium improved to 1.9. His CRP now slightly up at 5.1. He has no acute issues or concerns. Functional Status: Reports: Pain Controlled, Tolerating Diet, Ambulating, Urinating, Incentive Spirometry - Review of Systems General: Denies: Fever, Weakness, Fatigue, Malaise, Chills HEENT: Denies: Contact Lenses Pulmonary: Reports: Cough, Sputum. Denies: Shortness of Breath, Pleuritic Chest Pain, Hemoptysis, Wheezing Cardiovascular: Denies: Chest Pain, Palpitations, Dyspnea on Exertion, Lightheadedness Gastrointestinal: Reports: Constipation, Other (No bowel movement). Denies: Abdominal Pain, Melena, Nausea, Vomiting Genitourinary: Denies: Frequency, Urgency Musculoskeletal: Reports: Back Pain Skin: Denies: Cyanosis, Pallor, Diaphoresis, Pruritis, Rash Neurological: Denies: Dizziness, Syncope, Difficulty Walking, Weakness Psychiatric: Denies: Depression, Anxiety, Agitation, Hallucinations, Suicidal Ideation, Homicidal Ideation - Patient Data Vitals - Most Recent: Last Vital Signs Temp 36.6 C 05/13/21 04:00 Pulse 64 05/13/21 06:31 Resp 20 05/13/21 06:31 BP 117/54 L 05/13/21 06:31 Pulse Ox 95 05/13/21 06:31 Weight - Most Recent: 104.508 kg I&O - Last 24 Hours: Intake & Output 05/12/21 05/13/21 05/13/21 22:59 06:59 14:59 Intake Total 1390 500 Output Total 200 Balance 1190 500 Lab Results Last 24 Hours: Laboratory Results - last 24 hr 05/12/21 05/13/21 05/13/21 Range/Units 09:30 06:33 06:33 WBC 11.7 H (5.0-10.0) 10^3/uL RBC 4.18 L (4.6-6.2) 10^6/uL Hgb 13.2 L (14.0-18.0) g/dL Hct 39.4 L (40.0-54.0) % MCV 94.3 (80-100) fL MCH 31.6 (27.0-34.0) pg MCHC 33.5 (33.0-35.0) g/dL Plt Count 193 (150-450) 10^3/uL Neut % (Auto) 59.6 (42.2-75.2) % Lymph % (Auto) 21.7 (20.5-50.1) % Dane % (Auto) 16.7 H (2-8) % Eos % (Auto) 1.7 (1.0-3.0) % Baso % (Auto) 0.3 (0.0-1.0) % Add Manual Diff Yes Sodium 132 L (136-145) mmol/L Potassium 4.0 (3.5-5.1) mmol/L Chloride 98 (98-107) mmol/L Carbon Dioxide 28 (21-32) mmol/L Anion Gap 10.0 (7-13) mEq/L BUN 13 (7-18) mg/dL Creatinine 0.66 L (0.70-1.30) mg/dL Est Cr Clr Drug Dosing 89.24 mL/min Estimated GFR (MDRD) > 60 Glucose 104 H (70-99) mg/dL Calcium 8.3 L (8.5-10.1) mg/dL Magnesium 1.9 (1.8-2.4) mg/dL C-Reactive Protein 5.1 H (0.0-0.9) mg/dL SARS CoV-2 RNA Rapid CHAITANYA Negative (NEGATIVE) Luis Results Last 24 Hours: Microbiology 05/10/21 10:16 Aerobic Blood Culture - Preliminary Blood - Venous - Iv Start NO GROWTH AFTER 2 DAYS Anaerobic Blood Culture - Preliminary NO GROWTH AFTER 2 DAYS 05/10/21 11:05 Gram Stain - Final Sputum - Expectorated Sputum Culture - Preliminary NORMAL RESPIRATORY [facility] 2 DAYS Med Orders - Current: Current Medications Acetaminophen (Acetaminophen 325 Mg Tab) 650 mg PO Q4H PRN PRN Reason: Pain (Mild 1-3)/fever Last Admin: 05/11/21 20:59 Dose: 650 mg Documented by: Albuterol (Albuterol 6.7 Gm Inhaler) 0 gm INH QID [facility] Last Admin: 05/12/21 22:55 Dose: 2 puff Documented by: Amlodipine Besylate (Amlodipine 5 Mg Tab) 5 mg PO DAILY [facility] Last Admin: 05/12/21 09:37 Dose: 5 mg Documented by: Azithromycin (Azithromycin 250 Mg Tab) 250 mg PO DAILY [facility] Stop: 05/15/21 09:01 Last Admin: 05/12/21 09:55 Dose: 250 mg Documented by: Benzonatate (Benzonatate 100 Mg Cap) 200 mg PO TID PRN PRN Reason: Cough Last Admin: 05/12/21 20:58 Dose: 200 mg Documented by: Ceftriaxone Sodium (Ceftriaxone 2 Gm Vial) 2 gm IV Q24H [facility] Last Admin: 05/12/21 16:11 Dose: 2 gm Documented by: Digoxin (Digoxin 500 Mcg/2 Ml Amp) 250 mcg IVPUSH Q6H [facility] Last Admin: 05/13/21 01:37 Dose: Not Given Documented by: Enalapril Maleate (Enalapril 10 Mg Tab) 10 mg PO DAILY [facility] Last Admin: 05/12/21 09:39 Dose: 10 mg Documented by: Enoxaparin Sodium (Enoxaparin 100 Mg/1 Ml Syringe) 100 mg SUBCUT BID [facility] Last Admin: 05/12/21 20:58 Dose: 100 mg Documented by: Finasteride (Finasteride 5 Mg Tab) 5 mg PO DAILY [facility] Last Admin: 05/12/21 09:40 Dose: 5 mg Documented by: Hydrochlorothiazide (Hydrochlorothiazide 25 Mg Tab) 25 mg PO DAILY [facility] Last Admin: 05/12/21 09:37 Dose: 25 mg Documented by: Sodium Chloride (Normal Saline) 1,000 mls @ 75 mls/hr IV ASDIRECTED [facility]NA[facility] Last Admin: 05/12/21 19:30 Dose: 75 mls/hr Documented by: Diltiazem HCl 125 mg/ Sodium (Chloride) 125 mls @ 5 mls/hr IV TITRATE [facility]; Pro tocol Last Admin: 05/12/21 20:19 Dose: 5 mg/hr, 5 mls/hr Documented by: Metoprolol Tartrate (Metoprolol Tartrate 50 Mg Tab) 50 mg PO Q12H [facility] Last Admin: 05/12/21 19:43 Dose: 50 mg Documented by: Potassium Chloride (Potassium Chloride 10 Meq Tab.Er) 20 meq PO BIDMEALS [facility] Last Admin: 05/12/21 17:08 Dose: 20 meq Documented by: Simvastatin (Simvastatin 40 Mg Tab) 20 mg PO DAILY [facility] Last Admin: 05/12/21 09:43 Dose: 20 mg Documented by: Tamsulosin HCl (Tamsulosin 0.4 Mg Cap.Er) 0.4 mg PO DAILY [facility] Last Admin: 05/12/21 09:54 Dose: 0.4 mg Documented by: Temazepam (Temazepam 15 Mg Cap) 15 mg PO BEDTIME PRN PRN Reason: Sleep Last Admin: 05/11/21 20:56 Dose: 15 mg Documented by: Discontinued Medications Aspirin (Aspirin 81 Mg Tab.Ec) 81 mg PO ONETIME ONE Stop: 05/10/21 22:21 Last Admin: 05/10/21 23:01 Dose: 81 mg Documented by: Ceftriaxone Sodium (Ceftriaxone 1 Gm Vial) 1 gm IV ONETIME ONE Stop: 05/10/21 16:31 Last Admin: 05/10/21 17:08 Dose: 1 gm Documented by: Clonidine HCl (Clonidine 0.1 Mg Tab) 0.1 mg PO ONETIME ONE Stop: 05/11/21 12:31 Last Admin: 05/11/21 12:37 Dose: 0.1 mg Documented by: Diltiazem HCl (Diltiazem 25 Mg/5 Ml Sdv) 20 mg IVPUSH ONETIME ONE Stop: 05/11/21 10:06 Last Admin: 05/11/21 11:25 Dose: Not Given Documented by: Diltiazem HCl (Diltiazem 25 Mg/5 Ml Sdv) 10 mg IVPUSH ONETIME ONE Stop: 05/11/21 10:19 Last Admin: 05/11/21 10:42 Dose: 10 mg Documented by: Diltiazem HCl (Diltiazem 25 Mg/5 Ml Sdv) 10 mg IVPUSH ONETIME ONE Stop: 05/11/21 11:09 Last Admin: 05/11/21 11:25 Dose: 10 mg Documented by: Diltiazem HCl (Diltiazem 25 Mg/5 Ml Sdv) 5 mg IVPUSH ONETIME ONE Stop: 05/11/21 15:26 Last Admin: 05/11/21 15:32 Dose: 5 mg Documented by: Enalapril Maleate (Enalapril 10 Mg Tab) 10 mg PO ONETIME ONE Stop: 05/10/21 22:16 Last Admin: 05/10/21 23:00 Dose: 10 mg Documented by: Enoxaparin Sodium (Enoxaparin 40 Mg/0.4 Ml Syringe) 40 mg SUBCUT DAILY [facility] Last Admin: 05/11/21 08:30 Dose: 40 mg Documented by: Enoxaparin Sodium (Enoxaparin 40 Mg/0.4 Ml Syringe) 60 mg SUBCUT ONETIME ONE Stop: 05/11/21 10:31 Enoxaparin Sodium (Enoxaparin 60 Mg/0.6 Ml Syringe) 60 mg SUBCUT ONETIME ONE Stop: 05/11/21 10:31 Last Admin: 05/11/21 10:42 Dose: 60 mg Documented by: Gentamicin Sulfate (Pharmacy To Dose - Gentamicin) 1 dose .XX ASDIRECTED [facility] Hydrochlorothiazide (Hydrochlorothiazide 25 Mg Tab) 25 mg PO ONETIME ONE Stop: 05/10/21 22:21 Last Admin: 05/10/21 22:59 Dose: 25 mg Documented by: Ceftriaxone Sodium 1 gm/ (Sodium Chloride) 50 mls @ 100 mls/hr IV ONETIME ONE Stop: 05/10/21 13:34 Last Admin: 05/10/21 13:16 Dose: 100 mls/hr Documented by: Ceftriaxone Sodium 2 gm/ (Sodium Chloride) 100 mls @ 200 mls/hr IV Q24H [facility] Last Admin: 05/11/21 04:00 Dose: Not Given Documented by: Sterile Water (Sterile Water For Injection) Confirm Administered Dose 20 mls @ as directed .ROUTE .STK-MED ONE Stop: 05/10/21 16:56 Last Admin: 05/10/21 17:14 Dose: 10 mls/hr Documented by: Sodium Chloride (Normal Saline) 250 mls @ 999 mls/hr IV ONETIME ONE Stop: 05/10/21 18:50 Last Infusion: 05/10/21 21:58 Dose: Infused Documented by: Gentamicin Sulfate 480 mg/ (Sodium Chloride) 112 mls @ 224 mls/hr IV Q24H [facility] Last Admin: 05/10/21 20:16 Dose: 224 mls/hr Documented by: Sodium Chloride (Normal Saline) 250 mls @ 999 mls/hr IV ASDIRECTED [facility]NA[facility] Last Infusion: 05/11/21 03:53 Dose: Infused Documented by: Sodium Chloride (Normal Saline) 250 mls @ 999 mls/hr IV ONETIME ONE Stop: 05/11/21 08:14 Last Infusion: 05/11/21 08:42 Dose: Infused Documented by: Potassium Chloride 10 meq/ (Premix) 100 mls @ 100 mls/hr IV ASDIRECTED PRN PRN Reason: Other Magnesium Sulfate 2 gm/ Premix 50 mls @ 25 mls/hr IV ONETIME ONE Stop: 05/12/21 09:49 Last Infusion: 05/12/21 11:40 Dose: Infused Documented by: Iopamidol (Iopamidol 755 Mg/Ml 100 Ml Bottle) 100 ml IVPUSH ONETIME ONE Stop: 05/10/21 11:25 Last Admin: 05/10/21 11:54 Dose: 79 ml Documented by: Metoprolol Tartrate (Metoprolol Tartrate 25 Mg Tab) 25 mg PO ONETIME ONE Stop: 05/10/21 22:14 Last Admin: 05/10/21 23:00 Dose: 25 mg Documented by: Metoprolol Tartrate (Metoprolol Tartrate 25 Mg Tab) 25 mg PO ONETIME ONE Stop: 05/11/21 06:46 Last Admin: 05/11/21 07:00 Dose: 25 mg Documented by: Metoprolol Tartrate (Metoprolol Tartrate 25 Mg Tab) 25 mg PO ONETIME ONE Stop: 05/11/21 08:00 Last Admin: 05/11/21 08:24 Dose: 25 mg Documented by: Metoprolol Tartrate (Metoprolol Tartrate 5 Mg/5 Ml Sdv) 5 mg IVPUSH Q4H PRN PRN Reason: Tachycardia Metoprolol Tartrate (Metoprolol Tartrate 50 Mg Tab) 50 mg PO Q12H [facility] Last Admin: 05/12/21 09:54 Dose: 50 mg Documented by: Metoprolol Tartrate (Metoprolol Tartrate 50 Mg Tab) 50 mg PO Q12H [facility] Metoprolol Tartrate (Metoprolol Tartrate 5 Mg/5 Ml Sdv) 5 mg IVPUSH ONETIME ONE Stop: 05/11/21 16:47 Last Admin: 05/11/21 16:58 Dose: 5 mg Documented by: Miscellaneous Information (Check Patch *Nicotine*) 1 ea TRDERM BEDTIME [facility] Nicotine (Nicotine 14 Mg/24 Hr Patch) 14 mg TRDERM DAILY [facility] Last Admin: 05/11/21 08:29 Dose: Not Given Documented by: Pneumococcal Polyvalent Vaccine (Pneumococcal Polyvalent-23 Vaccine 0.5 Ml Sdv) 0.5 ml IM .ONCE ONE Stop: 05/10/21 15:11 Potassium Chloride (Potassium Chloride 10 Meq Tab.Er) 20 meq PO ONETIME ONE Stop: 05/10/21 22:05 Last Admin: 05/10/21 22:59 Dose: 20 meq Documented by: Simethicone (Simethicone 80 Mg Tab.Chew) 160 mg PO ONETIME ONE Stop: 05/11/21 21:01 Last Admin: 05/11/21 20:55 Dose: 160 mg Documented by: Simethicone (Simethicone 80 Mg Tab.Chew) 80 mg PO ONETIME ONE Stop: 05/12/21 06:01 Last Admin: 05/12/21 05:54 Dose: 80 mg Documented by: - Exam Quality Assessment: Supplemental Oxygen, DVT Prophylaxis. No: Urine Catheter General: Alert, Oriented, Cooperative, No Acute Distress HEENT: Pupils Equal, Pupils Reactive, EOMI, Mucous Membr. Moist/[place] Neck: Supple Lungs: Normal Respiratory Effort, Decreased Breath Sounds, Crackles Cardiovascular: Regular Rate, Regular Rhythm (Left base) GI/Abdominal Exam: Normal Bowel Sounds, Non-Tender, No Organomegaly, Other ( Obese) (Male) Exam: Deferred Back Exam: Normal Inspection, Full Range of Motion Extremities: Normal Inspection, Normal Range of Motion, Non-Tender, No Pedal Edema, Normal Capillary Refill, Other (Surgical scar in the right knee; small scab below the left knee) Peripheral Pulses: 2+: Dorsalis Pedis (L), Dorsalis Pedis (R) Skin: Warm, Dry, Intact Neurological: Strength Equal Bilateral Psy/Mental Status: Alert, Normal Affect, Normal Mood - Patient Data Lab Results Last 24 hrs: Laboratory Results - last 24 hr 05/12/21 05/13/21 05/13/21 Range/Units 09:30 06:33 06:33 WBC 11.7 H (5.0-10.0) 10^3/uL RBC 4.18 L (4.6-6.2) 10^6/uL Hgb 13.2 L (14.0-18.0) g/dL Hct 39.4 L (40.0-54.0) % MCV 94.3 (80-100) fL MCH 31.6 (27.0-34.0) pg MCHC 33.5 (33.0-35.0) g/dL Plt Count 193 (150-450) 10^3/uL Neut % (Auto) 59.6 (42.2-75.2) % Lymph % (Auto) 21.7 (20.5-50.1) % Dane % (Auto) 16.7 H (2-8) % Eos % (Auto) 1.7 (1.0-3.0) % Baso % (Auto) 0.3 (0.0-1.0) % Add Manual Diff Yes Sodium 132 L (136-145) mmol/L Potassium 4.0 (3.5-5.1) mmol/L Chloride 98 (98-107) mmol/L Carbon Dioxide 28 (21-32) mmol/L Anion Gap 10.0 (7-13) mEq/L BUN 13 (7-18) mg/dL Creatinine 0.66 L (0.70-1.30) mg/dL Est Cr Clr Drug Dosing 89.24 mL/min Estimated GFR (MDRD) > 60 Glucose 104 H (70-99) mg/dL Calcium 8.3 L (8.5-10.1) mg/dL Magnesium 1.9 (1.8-2.4) mg/dL C-Reactive Protein 5.1 H (0.0-0.9) mg/dL SARS CoV-2 RNA Rapid CHAITANYA Negative (NEGATIVE) Result Diagrams: 05/13/21 06:33 05/13/21 06:33 Luis Results Last 24 hrs: Microbiology 05/10/21 10:16 Aerobic Blood Culture - Preliminary Blood - Venous - Iv Start NO GROWTH AFTER 2 DAYS Anaerobic Blood Culture - Preliminary NO GROWTH AFTER 2 DAYS 05/10/21 11:05 Gram Stain - Final Sputum - Expectorated Sputum Culture - Preliminary NORMAL RESPIRATORY [facility] 2 DAYS Sepsis Event Note - Evaluation Sepsis Screening Result: No Definite Risk - Focused Exam Vital Signs: Vital Signs Temp Pulse Pulse Resp BP BP Pulse Ox 05/13/21 06:31 64 20 117/54 L 95 05/13/21 06:23 63 20 100/43 L 91 L 05/13/21 05:30 64 22 H 108/60 95 05/13/21 04:30 64 20 130/66 95 05/13/21 04:00 36.6 C 70 18 123/72 95 05/13/21 03:30 60 18 114/72 94 L 05/13/21 02:30 63 22 H 100/55 L 92 L 05/13/21 01:37 59 L 05/13/21 01:30 60 20 118/71 94 L 05/13/21 00:30 65 20 125/70 95 05/13/21 00:00 36.6 C 62 22 H 112/80 95 05/12/21 22:30 63 20 97/46 L 92 L 05/12/21 21:30 63 24 H 120/60 96 05/12/21 20:00 36.7 C 67 30 H 125/70 95 05/12/21 19:43 73 131/65 - Problem List Review Problem List Initiated/Reviewed/Updated: Yes - My Orders Last 24 Hours: My Active Orders 05/12/21 07:00 Metoprolol Tartrate [Lopressor] 50 mg PO Q12H 05/12/21 07:49 Chest 1V Frontal [CR] Routine 05/12/21 09:00 Finasteride [Proscar] 5 mg PO DAILY amLODIPine [Norvasc] 5 mg PO DAILY 05/13/21 06:33 CBC WITH AUTO DIFF [HEME] DAILY DIGOXIN [CHEM] Routine MANUAL DIFFERENTIAL QA/NC [HEME] Routine 05/14/21 06:00 BMP [BASIC METABOLIC PANEL,BMP] [CHEM] DAILY CBC WITH AUTO DIFF [HEME] DAILY CRP [C-REACTIVE PROTEIN] [CHEM] DAILY MAGNESIUM [CHEM] DAILY 05/15/21 06:00 BMP [BASIC METABOLIC PANEL,BMP] [CHEM] DAILY CBC WITH AUTO DIFF [HEME] DAILY CRP [C-REACTIVE PROTEIN] [CHEM] DAILY MAGNESIUM [CHEM] DAILY 05/16/21 06:00 BMP [BASIC METABOLIC PANEL,BMP] [CHEM] DAILY CBC WITH AUTO DIFF [HEME] DAILY CRP [C-REACTIVE PROTEIN] [CHEM] DAILY MAGNESIUM [CHEM] DAILY - Assessment Assessment:: This is a 68-year-old gentleman who was admitted for community-acquired pneumonia currently being worked on for presumptive COVID-19 infection. Assessment: Acute: Community-acquired pneumonia/moderate right parabronchial and right lower lobe pneumonia; Sputum culture so far showing no significant organisms Bacteremia secondary to Streptococcus pneumonia sensitive to Rocephin; currently on 2 g of Rocephin daily No COVID-19 pneumonitis; fully vaccinated with moderate; in house Covid test x 3 were all negative Status post Sinus tachycardia with TSH of 0.69 (wnl); high-sensitivity troponin x3 are both within normal limits Status post atrial flutter with RVR/new onset; on metoprolol, digoxin, and Cardizem drip; he was in the low 90s to 120s earlier this morning; remains asymptomatic and chemically converted overnight; now in sinus rhythm Leukocytosis with WBC of 11.7 with normal lactic acid level Elevated D-dimer of 2721; negative chest CTA for PE and duplex ultrasound for DVT Hepatic congestion noted on chest CTA; abdominal ultrasound was read as unremarkable gallbladder PE hiatal hernia noted on chest CTA Hyperglycemia with a glucose of 127, now in the low 100; carries no history of glucose intolerance or type 2 diabetes; A1c is 5.8 Hyponatremia with sodium 134, now 132 likely related to pulmonary insufficiency from ongoing community-acquired pneumonia Class I obesity with BMI of 35 Resolved: Mild hypokalemia with potassium of 3.4; resolved now at 3.7 Elevated anion gap of 13.4; resolved now at 11.7 Status post accelerated hypertension with a documented blood pressure as high as 123/1 11 mm per mercury Chronic: Hypertension Hyperlipidemia BPH History of Jose D's erosion Diverticulosis History of ischemic colitis Urinary incontinence History of urethral strictures status post dilation Obstructive sleep apnea - Plan Plan:: Plan: Patient does not appear to be septic but concern for developing sepsis Continue to monitor inflammatory markers Continue with empiric antibiotic azithromycin and rocephin day #4 Repeat blood culture in a.m. Discontinue serial EKGs since patient is now converted to sinus rhythm As needed electrolyte replacement protocol 2D echo completed; awaiting final report Flutter valve and incentive spirometry for pulmonary exercise As needed decongestant and expectorant Nutritional medicine consult for weight management Resume home medications for finasteride and amlodipine Awaiting digoxin level but will go ahead and discontinue it Continue metoprolol and Cardizem for main treatment of his atrial flutter Ambulate as many times as he can DVT prophylaxis: 100 mg subcu twice daily Lovenox for stroke/DVT prophylaxis; may need to convert to oral agent until he sees his cardiology Cardiology outpatient referral for evaluation of recent diagnosis of atrial flutter Transfer patient to medical floor with telemetry Discharge disposition awaiting response to treatment: He may need inpatient treatment for at least 4-5 days Critical care time spent: 20 mins
[2021-05-13] MEDS: Metoprolol Tartrate 50 MG Tab PO SCH ×2 (07:21→18:39)
[2021-05-13] MEDS: Sodium Chloride 0.9% 1,000 ML IV SCH (07:27)
[2021-05-13] MEDS ORDERED: guaiFENesin/Dextromethorphan 100-10 MG/5 ML Soln 5 ML Cup PO PRN (07:51)
[2021-05-13] MEDS: Simvastatin 40 MG Tab PO SCH (08:59)
[2021-05-13] MEDS: Azithromycin 250 MG Tab PO SCH (09:00)
[2021-05-13] MEDS: Tamsulosin 0.4 MG Cap.ER PO SCH (09:00)
[2021-05-13] MEDS: Hydrochlorothiazide 25 MG Tab PO SCH (09:00)
[2021-05-13] MEDS: Potassium Chloride 10 MEQ Tab.ER PO SCH ×2 (09:00→17:37)
[2021-05-13] MEDS: Finasteride 5 MG Tab PO SCH (09:00)
[2021-05-13] MEDS: amLODIPine 5 MG Tab PO SCH (09:01)
[2021-05-13] MEDS: Enoxaparin 100 MG/1 ML Syringe SUBCUT SCH ×2 (09:01→20:48)
[2021-05-13] MEDS: Albuterol 6.7 GM Inhaler INH SCH ×4 (09:03→20:47)
--- NOTE | 2021-05-13 10:32 | CR ---
PROCEDURE INFORMATION: Exam: XR Chest Exam date and time: 05/12/2021 9:12 AM Age: 76 years old Clinical indication: Other: Pneumonia; Additional info: Pna TECHNIQUE: Imaging protocol: XR of the chest. Views: 1 view. COMPARISON: CT Chest w Cont 05/10/2021 11:38 AM FINDINGS: Lungs: Interstitial infiltrate in the bilateral lower lungs, right worse than left. Pleural spaces: Unremarkable. No pleural effusion. No pneumothorax. Heart/Mediastinum: Unremarkable. No cardiomegaly. Vasculature: Aortic calcifications. Bones/joints: Unremarkable. IMPRESSION: Interstitial infiltrate in the lower lungs, right worse than left this appears progressed on the left compared with the CT 05/10/2021
[2021-05-13] MEDS ORDERED: Bisacodyl 10 MG Supp RECTAL STA (13:35)
[2021-05-13] MEDS ORDERED: Polyethylene Glycol 3350 Powder 17 GM Packet PO ONE (13:45)
[2021-05-13] MEDS ORDERED: Water For Injection, Sterile 20 ML ONE (16:08)
[2021-05-13] MEDS: cefTRIAXone 2 GM Vial IV SCH (16:16)
[2021-05-14] MEDS: Metoprolol Tartrate 50 MG Tab PO SCH ×2 (06:03→20:46)
[2021-05-14 06:46] LABS: ANION GAP 9.2 mEq/L (7-13); CHLORIDE,CL 96 mmol/L (98-107); SODIUM,NA 130 mmol/L (136-145)
[2021-05-14] MEDS: Apixaban 5 MG Tab PO SCH ×2 (08:40→20:46)
[2021-05-14] MEDS: Azithromycin 250 MG Tab PO SCH (08:40)
[2021-05-14] MEDS: Finasteride 5 MG Tab PO SCH (08:40)
[2021-05-14] MEDS: amLODIPine 5 MG Tab PO SCH (08:41)
[2021-05-14] MEDS: Simvastatin 40 MG Tab PO SCH (08:41)
[2021-05-14] MEDS: Potassium Chloride 10 MEQ Tab.ER PO SCH ×2 (08:41→17:22)
[2021-05-14] MEDS: Tamsulosin 0.4 MG Cap.ER PO SCH (08:42)
[2021-05-14] MEDS: Diltiazem 180 MG Cap.CD PO SCH (08:42)
[2021-05-14] MEDS: Albuterol 6.7 GM Inhaler INH SCH ×4 (08:44→20:48)
[2021-05-14] MEDS: Hydrochlorothiazide 25 MG Tab PO SCH (08:46)
[2021-05-14] MEDS ORDERED: Magnesium Hydroxide 400 MG/5 ML Susp 30 ML Cup PO ONE (09:30)
--- NOTE | 2021-05-14 09:55 | PCM.PN ---
- General Info Date of Service: 05/14/21 Admission Dx/Problem (Free Text): Admission Diagnosis/Problem Admission Diagnosis/Problem Pneumonia/hemoptysis/elevated d dimer. Subjective Update: No significant overnight issues. Patient continues to do well. He reports no chest pain or shortness of breath. He still has some mild cough. He denies having heart palpitations. No fever or chills. No lightheadedness or dizziness. He is drinking and eating fine. No complaints. He has not had a bowel movement. His heart rate remains in sinus rhythm with heart rate in the 80s and 90s. He is no longer on Cardizem drip. His sodium level is lower today at 130 and his magnesium remains at 1.9. His CRP is slightly up at 5.5. He has been ambulating without desaturation. He is satting well adequately low 90s on room air. He has no acute issues or concerns. Functional Status: Reports: Pain Controlled, Tolerating Diet, Ambulating, Urinat ing - Review of Systems General: Denies: Fever, Weakness, Fatigue, Malaise HEENT: Reports: No Symptoms Pulmonary: Reports: Cough. Denies: Shortness of Breath, Pleuritic Chest Pain, Wheezing Cardiovascular: Denies: Chest Pain, Palpitations, Dyspnea on Exertion, Lightheadedness Gastrointestinal: Reports: Constipation. Denies: Abdominal Pain, Nausea, Vomiting Genitourinary: Denies: Frequency, Urgency Musculoskeletal: Denies: Back Pain, Joint Pain Skin: Denies: Jaundice, Mottled, Pallor, Diaphoresis, Dryness Neurological: Denies: Confusion, Trouble Speaking, Difficulty Walking, Weakness Psychiatric: Denies: Confusion, Anxiety, Agitation, Homicidal Ideation - Patient Data Vitals - Most Recent: Last Vital Signs Temp 36.8 C 05/14/21 04:00 Pulse 78 05/14/21 06:03 Resp 20 05/14/21 04:00 BP 123/65 05/14/21 08:41 Pulse Ox 92 L 05/14/21 04:00 Weight - Most Recent: 104.508 kg I&O - Last 24 Hours: Intake & Output 05/13/21 05/14/21 05/14/21 22:59 06:59 14:59 Intake Total 500 500 Balance 500 500 Lab Results Last 24 Hours: Laboratory Results - last 24 hr 05/14/21 05/14/21 Range/Units 06:10 06:10 WBC 10.7 H (5.0-10.0) 10^3/uL RBC 4.16 L (4.6-6.2) 10^6/uL Hgb 13.3 L (14.0-18.0) g/dL Hct 39.1 L (40.0-54.0) % MCV 94.0 (80-100) fL MCH 32.0 (27.0-34.0) pg MCHC 34.0 (33.0-35.0) g/dL Plt Count 227 (150-450) 10^3/uL Neut % (Auto) 59.1 (42.2-75.2) % Lymph % (Auto) 24.4 (20.5-50.1) % [place] % (Auto) 13.9 H (2-8) % Eos % (Auto) 2.0 (1.0-3.0) % Baso % (Auto) 0.6 (0.0-1.0) % Sodium 130 L (136-145) mmol/L Potassium 4.2 (3.5-5.1) mmol/L Chloride 96 L (98-107) mmol/L Carbon Dioxide 29 (21-32) mmol/L Anion Gap 9.2 (7-13) mEq/L BUN 14 (7-18) mg/dL Creatinine 0.70 (0.70-1.30) mg/dL Est Cr Clr Drug Dosing 84.14 mL/min Estimated GFR (MDRD) > 60 Glucose 99 (70-99) mg/dL Calcium 8.7 (8.5-10.1) mg/dL Magnesium 1.9 (1.8-2.4) mg/dL C-Reactive Protein 5.5 H (0.0-0.9) mg/dL Luis Results Last 24 Hours: Microbiology 05/14/21 06:10 Anaerobic Blood Culture - Final Blood - Arm, Right 05/10/21 10:16 Aerobic Blood Culture - Preliminary Blood - Venous - Iv Start NO GROWTH AFTER 3 DAYS Anaerobic Blood Culture - Preliminary NO GROWTH AFTER 3 DAYS 05/10/21 11:05 Gram Stain - Final Sputum - Expectorated Sputum Culture - Final NORMAL RESPIRATORY [facility] 2 DAYS Med Orders - Current: Current Medications Acetaminophen (Acetaminophen 325 Mg Tab) 650 mg PO Q4H PRN PRN Reason: Pain (Mild 1-3)/fever Last Admin: 05/11/21 20:59 Dose: 650 mg Documented by: Albuterol (Albuterol 6.7 Gm Inhaler) 0 gm INH QID [facility] Last Admin: 05/14/21 08:44 Dose: 2 puff Documented by: Amlodipine Besylate (Amlodipine 5 Mg Tab) 5 mg PO DAILY [facility] Last Admin: 05/14/21 08:41 Dose: 5 mg Documented by: Apixaban (Apixaban 5 Mg Tab) 5 mg PO BID [facility] Last Admin: 05/14/21 08:40 Dose: 5 mg Documented by: Azithromycin (Azithromycin 250 Mg Tab) 250 mg PO DAILY [facility] Stop: 05/15/21 09:01 Last Admin: 05/14/21 08:40 Dose: 250 mg Documented by: Benzonatate (Benzonatate 100 Mg Cap) 200 mg PO TID PRN PRN Reason: Cough Last Admin: 05/12/21 20:58 Dose: 200 mg Documented by: Ceftriaxone Sodium (Ceftriaxone 2 Gm Vial) 2 gm IV Q24H [facility] Last Admin: 05/13/21 16:16 Dose: 2 gm Documented by: Diltiazem HCl (Diltiazem 180 Mg Cap.Cd) 180 mg PO DAILY [facility] Last Admin: 05/14/21 08:42 Dose: 180 mg Documented by: Enalapril Maleate (Enalapril 10 Mg Tab) 10 mg PO DAILY [facility] Last Admin: 05/14/21 08:41 Dose: 10 mg Documented by: Finasteride (Finasteride 5 Mg Tab) 5 mg PO DAILY [facility] Last Admin: 05/14/21 08:40 Dose: 5 mg Documented by: Guaifenesin/Phenylephrine HCl (Guaifenesin/Dextromethorphan 100-10 Mg/5 Ml Soln 5 Ml Cup) 10 ml PO Q6H PRN PRN Reason: Cough Hydrochlorothiazide (Hydrochlorothiazide 25 Mg Tab) 25 mg PO DAILY [facility] Last Admin: 05/14/21 08:46 Dose: 25 mg Documented by: Metoprolol Tartrate (Metoprolol Tartrate 50 Mg Tab) 50 mg PO Q12H [facility] Last Admin: 05/14/21 06:03 Dose: 50 mg Documented by: Potassium Chloride (Potassium Chloride 10 Meq Tab.Er) 20 meq PO BIDMEALS [facility] Last Admin: 05/14/21 08:41 Dose: 20 meq Documented by: Simvastatin (Simvastatin 40 Mg Tab) 20 mg PO DAILY [facility] Last Admin: 05/14/21 08:41 Dose: 20 mg Documented by: Tamsulosin HCl (Tamsulosin 0.4 Mg Cap.Er) 0.4 mg PO DAILY [facility] Last Admin: 05/14/21 08:42 Dose: 0.4 mg Documented by: Temazepam (Temazepam 15 Mg Cap) 15 mg PO BEDTIME PRN PRN Reason: Sleep Last Admin: 05/11/21 20:56 Dose: 15 mg Documented by: Discontinued Medications Aspirin (Aspirin 81 Mg Tab.Ec) 81 mg PO ONETIME ONE Stop: 05/10/21 22:21 Last Admin: 05/10/21 23:01 Dose: 81 mg Documented by: Bisacodyl (Bisacodyl 10 Mg Supp) 10 mg RECTAL NOW STA Stop: 05/13/21 13:36 Last Admin: 05/13/21 14:52 Dose: 10 mg Documented by: Ceftriaxone Sodium (Ceftriaxone 1 Gm Vial) 1 gm IV ONETIME ONE Stop: 05/10/21 16:31 Last Admin: 05/10/21 17:08 Dose: 1 gm Documented by: Clonidine HCl (Clonidine 0.1 Mg Tab) 0.1 mg PO ONETIME ONE Stop: 05/11/21 12:31 Last Admin: 05/11/21 12:37 Dose: 0.1 mg Documented by: Digoxin (Digoxin 500 Mcg/2 Ml Amp) 250 mcg IVPUSH Q6H [facility] Last Admin: 05/13/21 07:22 Dose: 250 mcg Documented by: Diltiazem HCl (Diltiazem 25 Mg/5 Ml Sdv) 20 mg IVPUSH ONETIME ONE Stop: 05/11/21 10:06 Last Admin: 05/11/21 11:25 Dose: Not Given Documented by: Diltiazem HCl (Diltiazem 25 Mg/5 Ml Sdv) 10 mg IVPUSH ONETIME ONE Stop: 05/11/21 10:19 Last Admin: 05/11/21 10:42 Dose: 10 mg Documented by: Diltiazem HCl (Diltiazem 25 Mg/5 Ml Sdv) 10 mg IVPUSH ONETIME ONE Stop: 05/11/21 11:09 Last Admin: 05/11/21 11:25 Dose: 10 mg Documented by: Diltiazem HCl (Diltiazem 25 Mg/5 Ml Sdv) 5 mg IVPUSH ONETIME ONE Stop: 05/11/21 15:26 Last Admin: 05/11/21 15:32 Dose: 5 mg Documented by: Enalapril Maleate (Enalapril 10 Mg Tab) 10 mg PO ONETIME ONE Stop: 05/10/21 22:16 Last Admin: 05/10/21 23:00 Dose: 10 mg Documented by: Enoxaparin Sodium (Enoxaparin 40 Mg/0.4 Ml Syringe) 40 mg SUBCUT DAILY [facility] Last Admin: 05/11/21 08:30 Dose: 40 mg Documented by: Enoxaparin Sodium (Enoxaparin 100 Mg/1 Ml Syringe) 100 mg SUBCUT BID [facility] Stop: 05/13/21 22:00 Last Admin: 05/13/21 20:48 Dose: 100 mg Documented by: Enoxaparin Sodium (Enoxaparin 40 Mg/0.4 Ml Syringe) 60 mg SUBCUT ONETIME ONE Stop: 05/11/21 10:31 Enoxaparin Sodium (Enoxaparin 60 Mg/0.6 Ml Syringe) 60 mg SUBCUT ONETIME ONE Stop: 05/11/21 10:31 Last Admin: 05/11/21 10:42 Dose: 60 mg Documented by: Gentamicin Sulfate (Pharmacy To Dose - Gentamicin) 1 dose .XX ASDIRECTED [facility] Hydrochlorothiazide (Hydrochlorothiazide 25 Mg Tab) 25 mg PO ONETIME ONE Stop: 05/10/21 22:21 Last Admin: 05/10/21 22:59 Dose: 25 mg Documented by: Ceftriaxone Sodium 1 gm/ (Sodium Chloride) 50 mls @ 100 mls/hr IV ONETIME ONE Stop: 05/10/21 13:34 Last Admin: 05/10/21 13:16 Dose: 100 mls/hr Documented by: Ceftriaxone Sodium 2 gm/ (Sodium Chloride) 100 mls @ 200 mls/hr IV Q24H [facility] Last Admin: 05/11/21 04:00 Dose: Not Given Documented by: Sterile Water (Sterile Water For Injection) Confirm Administered Dose 20 mls @ as directed .ROUTE .STK-MED ONE Stop: 05/10/21 16:56 Last Admin: 05/10/21 17:14 Dose: 10 mls/hr Documented by: Sodium Chloride (Normal Saline) 250 mls @ 999 mls/hr IV ONETIME ONE Stop: 05/10/21 18:50 Last Infusion: 05/10/21 21:58 Dose: Infused Documented by: Sodium Chloride (Normal Saline) 1,000 mls @ 75 mls/hr IV ASDIRECTED [facility] Last Admin: 05/13/21 07:27 Dose: 75 mls/hr Documented by: Gentamicin Sulfate 480 mg/ (Sodium Chloride) 112 mls @ 224 mls/hr IV Q24H [facility] Last Admin: 05/10/21 20:16 Dose: 224 mls/hr Documented by: Sodium Chloride (Normal Saline) 250 mls @ 999 mls/hr IV ASDIRECTED [facility] Last Infusion: 05/11/21 03:53 Dose: Infused Documented by: Sodium Chloride (Normal Saline) 250 mls @ 999 mls/hr IV ONETIME ONE Stop: 05/11/21 08:14 Last Infusion: 05/11/21 08:42 Dose: Infused Documented by: Potassium Chloride 10 meq/ (Premix) 100 mls @ 100 mls/hr IV ASDIRECTED PRN PRN Reason: Other Diltiazem HCl 125 mg/ Sodium (Chloride) 125 mls @ 5 mls/hr IV TITRATE [facility]; Protocol Last Admin: 05/12/21 20:19 Dose: 5 mg/hr, 5 mls/hr Documented by: Magnesium Sulfate 2 gm/ Premix 50 mls @ 25 mls/hr IV ONETIME ONE Stop: 05/12/21 09:49 Last Infusion: 05/12/21 11:40 Dose: Infused Documented by: Sterile Water (Sterile Water For Injection) Confirm Administered Dose 20 mls @ as directed .ROUTE .STK-MED ONE Stop: 05/13/21 16:09 Last Admin: 05/13/21 16:15 Dose: 20 mls/hr Documented by: Iopamidol (Iopamidol 755 Mg/Ml 100 Ml Bottle) 100 ml IVPUSH ONETIME ONE Stop: 05/10/21 11:25 Last Admin: 05/10/21 11:54 Dose: 79 ml Documented by: Magnesium Hydroxide (Magnesium Hydroxide 400 Mg/5 Ml Susp 30 Ml Cup) 30 ml PO ONETIME ONE Stop: 05/14/21 09:31 Metoprolol Tartrate (Metoprolol Tartrate 25 Mg Tab) 25 mg PO ONETIME ONE Stop: 05/10/21 22:14 Last Admin: 05/10/21 23:00 Dose: 25 mg Documented by: Metoprolol Tartrate (Metoprolol Tartrate 25 Mg Tab) 25 mg PO ONETIME ONE Stop: 05/11/21 06:46 Last Admin: 05/11/21 07:00 Dose: 25 mg Documented by: Metoprolol Tartrate (Metoprolol Tartrate 25 Mg Tab) 25 mg PO ONETIME ONE Stop: 05/11/21 08:00 Last Admin: 05/11/21 08:24 Dose: 25 mg Documented by: Metoprolol Tartrate (Metoprolol Tartrate 5 Mg/5 Ml Sdv) 5 mg IVPUSH Q4H PRN PRN Reason: Tachycardia Metoprolol Tartrate (Metoprolol Tartrate 50 Mg Tab) 50 mg PO Q12H [facility] Last Admin: 05/12/21 09:54 Dose: 50 mg Documented by: Metoprolol Tartrate (Metoprolol Tartrate 50 Mg Tab) 50 mg PO Q12H [facility] Metoprolol Tartrate (Metoprolol Tartrate 5 Mg/5 Ml Sdv) 5 mg IVPUSH ONETIME ONE Stop: 05/11/21 16:47 Last Admin: 05/11/21 16:58 Dose: 5 mg Documented by: Miscellaneous Information (Check Patch *Nicotine*) 1 ea TRDERM BEDTIME [facility] Nicotine (Nicotine 14 Mg/24 Hr Patch) 14 mg TRDERM DAILY [facility] Last Admin: 05/11/21 08:29 Dose: Not Given Documented by: Pneumococcal Polyvalent Vaccine (Pneumococcal Polyvalent-23 Vaccine 0.5 Ml Sdv) 0.5 ml IM .ONCE ONE Stop: 05/10/21 15:11 Polyethylene Glycol (Polyethylene Glycol 3350 Powder 17 Gm Packet) 17 gm PO O NETIME ONE Stop: 05/13/21 13:46 Last Admin: 05/13/21 14:51 Dose: 17 gm Documented by: Potassium Chloride (Potassium Chloride 10 Meq Tab.Er) 20 meq PO ONETIME ONE Stop: 05/10/21 22:05 Last Admin: 05/10/21 22:59 Dose: 20 meq Documented by: Simethicone (Simethicone 80 Mg Tab.Chew) 160 mg PO ONETIME ONE Stop: 05/11/21 21:01 Last Admin: 05/11/21 20:55 Dose: 160 mg Documented by: Simethicone (Simethicone 80 Mg Tab.Chew) 80 mg PO ONETIME ONE Stop: 05/12/21 06:01 Last Admin: 05/12/21 05:54 Dose: 80 mg Documented by: - Exam Quality Assessment: DVT Prophylaxis. No: Supplemental Oxygen, Urine Catheter General: Alert, Oriented, Cooperative, No Acute Distress HEENT: Pupils Equal, Pupils Reactive, EOMI, Mucous Membr. Moist/[place] Neck: Supple Lungs: Clear to Auscultation, Normal Respiratory Effort Cardiovascular: Regular Rate, Regular Rhythm GI/Abdominal Exam: Normal Bowel Sounds, Soft, Non-Tender (Male) Exam: Deferred Back Exam: Normal Inspection, Decreased Range of Motion Extremities: Normal Inspection, Normal Range of Motion, Non-Tender, No Pedal Edema, Normal Capillary Refill Peripheral Pulses: 2+: Dorsalis Pedis (L), Dorsalis Pedis (R) Skin: Warm, Dry, Intact Neurological: No New Focal Deficit Psy/Mental Status: Alert, Normal Affect, Normal Mood - Patient Data Lab Results Last 24 hrs: Laboratory Results - last 24 hr 05/14/21 05/14/21 Range/Units 06:10 06:10 WBC 10.7 H (5.0-10.0) 10^3/uL RBC 4.16 L (4.6-6.2) 10^6/uL Hgb 13.3 L (14.0-18.0) g/dL Hct 39.1 L (40.0-54.0) % MCV 94.0 (80-100) fL MCH 32.0 (27.0-34.0) pg MCHC 34.0 (33.0-35.0) g/dL Plt Count 227 (150-450) 10^3/uL Neut % (Auto) 59.1 (42.2-75.2) % Lymph % (Auto) 24.4 (20.5-50.1) % [place] % (Auto) 13.9 H (2-8) % Eos % (Auto) 2.0 (1.0-3.0) % Baso % (Auto) 0.6 (0.0-1.0) % Sodium 130 L (136-145) mmol/L Potassium 4.2 (3.5-5.1) mmol/L Chloride 96 L (98-107) mmol/L Carbon Dioxide 29 (21-32) mmol/L Anion Gap 9.2 (7-13) mEq/L BUN 14 (7-18) mg/dL Creatinine 0.70 (0.70-1.30) mg/dL Est Cr Clr Drug Dosing 84.14 mL/min Estimated GFR (MDRD) > 60 Glucose 99 (70-99) mg/dL Calcium 8.7 (8.5-10.1) mg/dL Magnesium 1.9 (1.8-2.4) mg/dL C-Reactive Protein 5.5 H (0.0-0.9) mg/dL Result Diagrams: 05/15/21 05:45 05/15/21 05:45 Luis Results Last 24 hrs: Microbiology 05/14/21 06:10 Anaerobic Blood Culture - Final Blood - Arm, Right 05/10/21 10:16 Aerobic Blood Culture - Preliminary Blood - Venous - Iv Start NO GROWTH AFTER 3 DAYS Anaerobic Blood Culture - Preliminary NO GROWTH AFTER 3 DAYS 05/10/21 11:05 Gram Stain - Final Sputum - Expectorated Sputum Culture - Final NORMAL RESPIRATORY [facility] 2 DAYS Sepsis Event Note - Evaluation Sepsis Screening Result: No Definite Risk - Focused Exam Vital Signs: Vital Signs Temp Pulse Pulse Resp BP BP Pulse Ox 05/14/21 08:41 123/65 05/14/21 06:03 78 138/72 05/14/21 04:00 36.8 C 73 20 123/65 92 L 05/14/21 00:00 36.6 C 69 18 113/62 91 L - Problem List Review Problem List Initiated/Reviewed/Updated: Yes - My Orders Last 24 Hours: My Active Orders 05/14/21 05:11 Blood Culture x2 Reflex Set [OM.PC] AM 05/14/21 06:10 CULTURE BLOOD [BC] Routine 05/14/21 06:15 CULTURE BLOOD [BC] Routine 05/14/21 09:00 Apixaban [Eliquis] 5 mg PO BID Diltiazem [Cardizem CD] 180 mg PO DAILY 05/15/21 06:00 BMP [BASIC METABOLIC PANEL,BMP] [CHEM] DAILY CBC WITH AUTO DIFF [HEME] DAILY CRP [C-REACTIVE PROTEIN] [CHEM] DAILY MAGNESIUM [CHEM] DAILY 05/16/21 06:00 BMP [BASIC METABOLIC PANEL,BMP] [CHEM] DAILY CBC WITH AUTO DIFF [HEME] DAILY CRP [C-REACTIVE PROTEIN] [CHEM] DAILY MAGNESIUM [CHEM] DAILY - Assessment Assessment:: This is a 68-year-old gentleman who was admitted for community-acquired pneumonia currently being worked on for presumptive COVID-19 infection. Assessment: Acute: Community-acquired pneumonia/moderate right parabronchial and right lower lobe pneumonia; Sputum culture so far showing no significant organisms Bacteremia secondary to Streptococcus pneumonia sensitive to Rocephin; currently on 2 g of Rocephin daily Atrial flutter with RVR/new onset; on metoprolol, digoxin, and Cardizem drip; he was in the low 90s to 120s earlier this morning; remains asymptomatic and chemically converted overnight; now in sinus rhythm Leukocytosis with WBC of 11.7 with normal lactic acid level; now at 10.7, improving Elevated D-dimer of 2721; negative chest CTA for PE and duplex ultrasound for DVT Hepatic congestion noted on chest CTA; abdominal ultrasound was read as unremarkable gallbladder PE hiatal hernia noted on chest CTA Hyperglycemia with a glucose of 127, now in the low 100; carries no history of glucose intolerance or type 2 diabetes; A1c is 5.8 Hyponatremia with sodium 134, now 130 likely related to pulmonary insufficiency from ongoing community-acquired pneumonia Elevated CRP of 5.5 Class I obesity with BMI of 35 Resolved: Mild hypokalemia with potassium of 3.4; resolved now at 3.7 Elevated anion gap of 13.4; resolved now at 11.7 Status post accelerated hypertension with a documented blood pressure as high as 123/111 mm per mercury Status post Sinus tachycardia with TSH of 0.69 (wnl); high-sensitivity troponin x3 are both within normal limits Chronic: Hypertension Hyperlipidemia BPH History of Jose D's erosion Diverticulosis History of ischemic colitis Urinary incontinence History of urethral strictures status post dilation Obstructive sleep apnea - Plan Plan:: Plan: Patient remains clinically stable Continue to monitor inflammatory markers Continue with empiric antibiotic azithromycin and rocephin day #5 As needed electrolyte replacement protocol 2D echo completed; awaiting final report Flutter valve and incentive spirometry for pulmonary exercise As needed decongestant and expectorant Nutritional medicine consult for weight management Continue 50 mg p.o. metoprolol twice a day and Cardizem CD 180 milligrams p.o. daily for main treatment of his atrial flutter Ambulate as many times as he can Eliquis 5 mg p.o. twice daily for stroke/DVT prophylaxis Cardiology outpatient referral for evaluation of recent diagnosis of atrial flutter Discharge disposition: > than 96 hours; likely over the weekend
[2021-05-14] MEDS ORDERED: Water For Injection, Sterile 20 ML ONE (15:52)
[2021-05-14] MEDS: cefTRIAXone 2 GM Vial IV SCH (16:06)
[2021-05-14] MEDS: Temazepam 15 MG Cap PO PRN (20:47)
[2021-05-15 06:31] LABS: ANION GAP 13.4 mEq/L (7-13); CHLORIDE,CL 95 mmol/L (98-107); SODIUM,NA 132 mmol/L (136-145)
[2021-05-15] MEDS: amLODIPine 5 MG Tab PO SCH (08:00)
[2021-05-15] MEDS: Azithromycin 250 MG Tab PO SCH (08:00)
[2021-05-15] MEDS: Diltiazem 180 MG Cap.CD PO SCH (08:00)
[2021-05-15] MEDS: Albuterol 6.7 GM Inhaler INH SCH (08:00)
[2021-05-15] MEDS: Tamsulosin 0.4 MG Cap.ER PO SCH (08:01)
[2021-05-15] MEDS: Potassium Chloride 10 MEQ Tab.ER PO SCH (08:01)
[2021-05-15] MEDS: Apixaban 5 MG Tab PO SCH (08:01)
[2021-05-15] MEDS: Finasteride 5 MG Tab PO SCH (08:01)
[2021-05-15] MEDS: Hydrochlorothiazide 25 MG Tab PO SCH (08:02)
[2021-05-15] MEDS: Simvastatin 40 MG Tab PO SCH (08:02)
[2021-05-15 08:03] VITALS: BP 128/68; PULSE 75
[2021-05-15] MEDS: Metoprolol Tartrate 50 MG Tab PO SCH (08:03)
--- NOTE | 2021-05-15 08:38 | PCM.DCSUM1 ---
Discharge Summary - Hospital Course Brief History: This is a 68-year-old gentleman who was admitted for community-acquired pneumonia. Diagnosis: Stroke: No Modified Denver Scale: No Symptoms at All Modified Denver Scale Score: 0 - Discharge Data Discharge Date: 05/15/21 Discharge Disposition: Home, Self-Care 01 Condition: Good - Referral to Home Health Primary Care Physician: PCP None - Patient Summary/Data Operative Procedure(s) Performed: None Complications: Bacteremia Consults: Consultations 05/11/21 10:43 Consult to Dietary [Consult to Medication Assistant] [CONS] Routine Labs Pending at D/C: Non Recommended Follow-up Testing/Procedures: X-ray on follow-up appointment with his PCP Planned Operative Procedure(s) after DC: None Hospital Course: Patient was admitted for treatment of community-acquired pneumonia. His CT scan showed right-sided pneumonia with concerns for viral pneumonitis. The patient was negative for COVID-19 test x3. His sputum culture did not grow any organisms. However his blood culture grew Streptococcus pneumoniae. He received appropriate antibiotics until he improved clinically. His repeat blood culture showed no organismal growth. His hospital course was complicated by development of bacteremia along with new onset of atrial flutter. He had an elevated D-dimer but chest CTA along with duplex ultrasound revealed no PE or DVT. His heart rate eventually improved with administration of Cardizem, metoprolol, and digoxin. We also consulted cardiology for further input as he was unresponsive to rate control agents initially. However as patient improved gradually so did his heart rate. Currently his heart rate remains in the 70s to 80s sinus rhythm. The rest of hi s chronic medical illness remained stable during this hospitalization. He will continue to take oral antibiotic after discharge. He was informed to see cardiology for his new onset of atrial flutter and to make sure he checks his blood pressure as well as heart rate before he takes his new cardiac medications. He was advised to follow discharge instructions and to continue all his home routine medications. He was further advised to come back or seek immediate care should his symptoms persist or get worse. The patient expressed understanding and in agreement with the plans as discussed above. All of his questions and concerns were answered prior to discharge. - Patient Instructions Diet: Heart Healthy Diet Activity: As Tolerated Driving: Do Not Drive Showering/Bathing: May Shower Notify Provider of: Fever, Increased Pain, Nausea and/or Vomiting Other/Special Instructions: Please take all new medications as directed. Resume all home meds and routine activities as tolerated. Continue to use flutter valve and incentive spirometry for a week. Make sure to complete your oral antibiotic medication. We recommend that you see cardiology for your new diagnosis of atrial flutter. You will be on 2 new cardiac medications and therefore it is very important that you check your blood pressure and heart rate before the taking it. Hold cardiac medications, if your blood pressure is lower than 100/60 and or heart rate is less than 60. Also make sure to check your blood pressure and heart rate 3 times a day for at least a week and show log on your follow-up appointment with your primary care provider. After discha rge, if you experience worsening of your symptoms, please come back or seek immediate care at the nearest medical facility. - Discharge Plan *PRESCRIPTION DRUG MONITORING PROGRAM REVIEWED*: Not Applicable *COPY OF PRESCRIPTION DRUG MONITORING REPORT IN PATIENT JEN: Not Applicable Prescriptions/Med Rec: Diltiazem HCl [Diltiazem 24Hr Cd] 180 mg PO DAILY #30 cap.er.24h Apixaban [Eliquis] 5 mg PO BID #60 tablet levoFLOXacin [Levaquin] 500 mg PO DAILY #7 tab Metoprolol Tartrate [Lopressor] 50 mg PO Q12H #60 tablet Home Medications: Home Meds Enalapril/Hydrochlorothiazide [Enalapril-HCTZ 10-25 MG] 1 tab PO DAILY 07/09/15 [History] Multivitamin with Minerals [Multiple Vitamin] 1 tab PO DAILY 07/09/15 [History] Simvastatin 20 mg PO DAILY 07/09/15 [History] Finasteride 5 mg PO DAILY 10/24/19 [History] Tamsulosin [Flomax] 0.4 mg PO DAILY 10/24/19 [History] amLODIPine [Norvasc] 5 mg PO DAILY 05/11/21 [History] Apixaban [Eliquis] 5 mg PO BID #60 tablet 05/15/21 [Rx] Diltiazem HCl [Diltiazem 24Hr Cd] 180 mg PO DAILY #30 cap.er.24h 05/15/21 [Rx] Metoprolol Tartrate [Lopressor] 50 mg PO Q12H #60 tablet 05/15/21 [Rx] levoFLOXacin [Levaquin] 500 mg PO DAILY #7 tab 05/15/21 [Rx] Oxygen Therapy Mode: Room Air Patient Handouts: Metoprolol Tablets, Atrial Flutter, Levofloxacin tablets, Diltiazem Oral Tablets, Bacteremia, Adult, Apixaban oral tablets, Community- Acquired Pneumonia, Adult, [id number] Referrals: Cynthia Saldana NP [Ordering Only Provider] - - Discharge Summary/Plan Comment DC Time >30 min.: No (20 mis) Total # of Minutes for Discharge Time: 20 mins Discharge Summary/Plan Comment: Discharge to home and follow discharge instructions - General Info Date of Service: 05/15/21 Admission Dx/Problem (Free Text: Admission Diagnosis/Problem Admission Diagnosis/Problem Pneumonia/hemoptysis/elevated d dimer. Subjective Update: Patient had an uneventful night. His heart rate remained stable along with his blood pressures. He is in good spirit and feeling great this morning. He is hoping he can go home today. He has no acute issues or concerns. He is on room air and satting adequately. Functional Status: Reports: Pain Controlled, Tolerating Diet, Ambulating, Urinating, Incentive Spirometry. Denies: New Symptoms - Review of Systems General: Denies: Fever, Weakness, Fatigue, Malaise, Chills HEENT: Reports: No Symptoms Pulmonary: Reports: Cough. Denies: Shortness of Breath, Pleuritic Chest Pain, Wheezing Cardiovascular: Reports: Lightheadedness. Denies: Chest Pain, Palpitations Gastrointestinal: Denies: Abdominal Pain, Nausea, Vomiting Genitourinary: Denies: Frequency Musculoskeletal: Denies: Neck Pain, Back Pain Skin: Denies: Bruising, Pruritis, Rash Neurological: Denies: Confusion, Dizziness, Seizure, Syncope, Weakness Psychiatric: Denies: Depression, Anxiety, Agitation, Hallucinations - Patient Data Vitals - Most Recent: Last Vital Signs Temp 36.4 C 05/15/21 04:00 Pulse 75 05/15/21 08:03 Resp 18 05/15/21 04:00 BP 128/68 05/15/21 08:03 Pulse Ox 94 L 05/15/21 04:00 Weight - Most Recent: 104.508 kg I&O - Last 24 hours: Intake & Output 05/14/21 05/15/21 05/15/21 22:59 06:59 14:59 Intake Total 1140 Balance 1140 Lab Results - Last 24 hrs: Laboratory Results - last 24 hr 05/15/21 05/15/21 Range/Units 05:45 05:45 WBC 9.3 (5.0-10.0) 10^3/uL RBC 4.27 L (4.6-6.2) 10^6/uL Hgb 13.5 L (14.0-18.0) g/dL Hct 40.2 (40.0-54.0) % MCV 94.1 (80-100) fL MCH 31.6 (27.0-34.0) pg MCHC 33.6 (33.0-35.0) g/dL Plt Count 280 (150-450) 10^3/uL Neut % (Auto) 61.7 (42.2-75.2) % Lymph % (Auto) 23.4 (20.5-50.1) % [place] % (Auto) 12.0 H (2-8) % Eos % (Auto) 2.5 (1.0-3.0) % Baso % (Auto) 0.4 (0.0-1.0) % Add Manual Diff Yes Neutrophils % (Manual) 47 (42-75) % Band Neutrophils % 7 % Lymphocytes % (Manual) 25 (20-50) % Monocytes % (Manual) 10 H (2-8) % Eosinophils % (Manual) 5 H (1-3) % Basophils % (Manual) 1 Metamyelocytes % 2 Myelocytes % 3 Sodium 132 L (136-145) mmol/L Potassium 4.4 (3.5-5.1) mmol/L Chloride 95 L (98-107) mmol/L Carbon Dioxide 28 (21-32) mmol/L Anion Gap 13.4 H (7-13) mEq/L BUN 14 (7-18) mg/dL Creatinine 0.73 (0.70-1.30) mg/dL Est Cr Clr Drug Dosing 80.68 mL/min Estimated GFR (MDRD) > 60 Glucose 99 (70-99) mg/dL Calcium 8.9 (8.5-10.1) mg/dL Magnesium 2.1 (1.8-2.4) mg/dL C-Reactive Protein 3.8 H (0.0-0.9) mg/dL LEXI Results - Last 24 hrs: Microbiology 05/14/21 06:15 Aerobic Blood Culture - Preliminary Blood - Arm, Left NO GROWTH AFTER 1 DAY Anaerobic Blood Culture - Preliminary NO GROWTH AFTER 1 DAY 05/14/21 06:10 Aerobic Blood Culture - Preliminary Blood - Arm, Right NO GROWTH AFTER 1 DAY Anaerobic Blood Culture - Final 05/10/21 10:16 Aerobic Blood Culture - Preliminary Blood - Venous - Iv Start NO GROWTH AFTER 4 DAYS Anaerobic Blood Culture - Preliminary NO GROWTH AFTER 4 DAYS Med Orders - Current: Current Medications Acetaminophen (Acetaminophen 325 Mg Tab) 650 mg PO Q4H PRN PRN Reason: Pain (Mild 1-3)/fever Last Admin: 05/11/21 20:59 Dose: 650 mg Documented by: Albuterol (Albuterol 6.7 Gm Inhaler) 0 gm INH QID [facility] Last Admin: 05/15/21 08:00 Dose: 2 puff Documented by: Amlodipine Besylate (Amlodipine 5 Mg Tab) 5 mg PO DAILY [facility] Last Admin: 05/15/21 08:00 Dose: 5 mg Documented by: Apixaban (Apixaban 5 Mg Tab) 5 mg PO BID [facility] Last Admin: 05/15/21 08:01 Dose: 5 mg Documented by: Azithromycin (Azithromycin 250 Mg Tab) 250 mg PO DAILY [facility] Stop: 05/15/21 09:01 Last Admin: 05/15/21 08:00 Dose: 250 mg Documented by: Benzonatate (Benzonatate 100 Mg Cap) 200 mg PO TID PRN PRN Reason: Cough Last Admin: 05/12/21 20:58 Dose: 200 mg Documented by: Ceftriaxone Sodium (Ceftriaxone 2 Gm Vial) 2 gm IV Q24H [facility] Last Admin: 05/14/21 16:06 Dose: 2 gm Documented by: Diltiazem HCl (Diltiazem 180 Mg Cap.Cd) 180 mg PO DAILY [facility] Last Admin: 05/15/21 08:00 Dose: 180 mg Documented by: Enalapril Maleate (Enalapril 10 Mg Tab) 10 mg PO DAILY [facility] Last Admin: 05/15/21 08:01 Dose: 10 mg Documented by: Finasteride (Finasteride 5 Mg Tab) 5 mg PO DAILY [facility] Last Admin: 05/15/21 08:01 Dose: 5 mg Documented by: Guaifenesin/Phenylephrine HCl (Guaifenesin/Dextromethorphan 100-10 Mg/5 Ml Soln 5 Ml Cup) 10 ml PO Q6H PRN PRN Reason: Cough Hydrochlorothiazide (Hydrochlorothiazide 25 Mg Tab) 25 mg PO DAILY [facility] Last Admin: 05/15/21 08:02 Dose: 25 mg Documented by: Metoprolol Tartrate (Metoprolol Tartrate 50 Mg Tab) 50 mg PO Q12H [facility] Last Admin: 05/15/21 08:03 Dose: 50 mg Documented by: Potassium Chloride (Potassium Chloride 10 Meq Tab.Er) 20 meq PO BIDMEALS [facility] Last Admin: 05/15/21 08:01 Dose: 20 meq Documented by: Simvastatin (Simvastatin 40 Mg Tab) 20 mg PO DAILY [facility] Last Admin: 05/15/21 08:02 Dose: 20 mg Documented by: Tamsulosin HCl (Tamsulosin 0.4 Mg Cap.Er) 0.4 mg PO DAILY [facility] Last Admin: 05/15/21 08:01 Dose: 0.4 mg Documented by: Temazepam (Temazepam 15 Mg Cap) 15 mg PO BEDTIME PRN PRN Reason: Sleep Last Admin: 05/14/21 20:47 Dose: 15 mg Documented by: Discontinued Medications Aspirin (Aspirin 81 Mg Tab.Ec) 81 mg PO ONETIME ONE Stop: 05/10/21 22:21 Last Admin: 05/10/21 23:01 Dose: 81 mg Documented by: Bisacodyl (Bisacodyl 10 Mg Supp) 10 mg RECTAL NOW STA Stop: 05/13/21 13:36 Last Admin: 05/13/21 14:52 Dose: 10 mg Documented by: Ceftriaxone Sodium (Ceftriaxone 1 Gm Vial) 1 gm IV ONETIME ONE Stop: 05/10/21 16:31 Last Admin: 05/10/21 17:08 Dose: 1 gm Documented by: Clonidine HCl (Clonidine 0.1 Mg Tab) 0.1 mg PO ONETIME ONE Stop: 05/11/21 12:31 Last Admin: 05/11/21 12:37 Dose: 0.1 mg Documented by: Digoxin (Digoxin 500 Mcg/2 Ml Amp) 250 mcg IVPUSH Q6H [facility] Last Admin: 05/13/21 07:22 Dose: 250 mcg Documented by: Diltiazem HCl (Diltiazem 25 Mg/5 Ml Sdv) 20 mg IVPUSH ONETIME ONE Stop: 05/11/21 10:06 Last Admin: 05/11/21 11:25 Dose: Not Given Documented by: Diltiazem HCl (Diltiazem 25 Mg/5 Ml Sdv) 10 mg IVPUSH ONETIME ONE Stop: 05/11/21 10:19 Last Admin: 05/11/21 10:42 Dose: 10 mg Documented by: Diltiazem HCl (Diltiazem 25 Mg/5 Ml Sdv) 10 mg IVPUSH ONETIME ONE Stop: 05/11/21 11:09 Last Admin: 05/11/21 11:25 Dose: 10 mg Documented by: Diltiazem HCl (Diltiazem 25 Mg/5 Ml Sdv) 5 mg IVPUSH ONETIME ONE Stop: 05/11/21 15:26 Last Admin: 05/11/21 15:32 Dose: 5 mg Documented by: Enalapril Maleate (Enalapril 10 Mg Tab) 10 mg PO ONETIME ONE Stop: 05/10/21 22:16 Last Admin: 05/10/21 23:00 Dose: 10 mg Documented by: Enoxaparin Sodium (Enoxaparin 40 Mg/0.4 Ml Syringe) 40 mg SUBCUT DAILY [facility] Last Admin: 05/11/21 08:30 Dose: 40 mg Documented by: Enoxaparin Sodium (Enoxaparin 100 Mg/1 Ml Syringe) 100 mg SUBCUT BID [facility] Stop: 05/13/21 22:00 Last Admin: 05/13/21 20:48 Dose: 100 mg Documented by: Enoxaparin Sodium (Enoxaparin 40 Mg/0.4 Ml Syringe) 60 mg SUBCUT ONETIME ONE Stop: 05/11/21 10:31 Enoxaparin Sodium (Enoxaparin 60 Mg/0.6 Ml Syringe) 60 mg SUBCUT ONETIME ONE Stop: 05/11/21 10:31 Last Admin: 05/11/21 10:42 Dose: 60 mg Documented by: Gentamicin Sulfate (Pharmacy To Dose - Gentamicin) 1 dose .XX ASDIRECTED [facility] Hydrochlorothiazide (Hydrochlorothiazide 25 Mg Tab) 25 mg PO ONETIME ONE Stop: 05/10/21 22:21 Last Admin: 05/10/21 22:59 Dose: 25 mg Documented by: Ceftriaxone Sodium 1 gm/ (Sodium Chloride) 50 mls @ 100 mls/hr IV ONETIME ONE Stop: 05/10/21 13:34 Last Admin: 05/10/21 13:16 Dose: 100 mls/hr Documented by: Ceftriaxone Sodium 2 gm/ (Sodium Chloride) 100 mls @ 200 mls/hr IV Q24H [facility] Last Admin: 05/11/21 04:00 Dose: Not Given Documented by: Sterile Water (Sterile Water For Injection) Confirm Administered Dose 20 mls @ as directed .ROUTE .STK-MED ONE Stop: 05/10/21 16:56 Last Admin: 05/10/21 17:14 Dose: 10 mls/hr Documented by: Sodium Chloride (Normal Saline) 250 mls @ 999 mls/hr IV ONETIME ONE Stop: 05/10/21 18:50 Last Infusion: 05/10/21 21:58 Dose: Infused Documented by: Sodium Chloride (Normal Saline) 1,000 mls @ 75 mls/hr IV ASDIRECTED [facility] Last Admin: 05/13/21 07:27 Dose: 75 mls/hr Documented by: Gentamicin Sulfate 480 mg/ (Sodium Chloride) 112 mls @ 224 mls/hr IV Q24H [facility] Last Admin: 05/10/21 20:16 Dose: 224 mls/hr Documented by: Sodium Chloride (Normal Saline) 250 mls @ 999 mls/hr IV ASDIRECTED [facility] Last Infusion: 05/11/21 03:53 Dose: Infused Documented by: Sodium Chloride (Normal Saline) 250 mls @ 999 mls/hr IV ONETIME ONE Stop: 05/11/21 08:14 Last Infusion: 05/11/21 08:42 Dose: Infused Documented by: Potassium Chloride 10 meq/ (Premix) 100 mls @ 100 mls/hr IV ASDIRECTED PRN PRN Reason: Other Diltiazem HCl 125 mg/ Sodium (Chloride) 125 mls @ 5 mls/hr IV TITRATE [facility]; Protocol Last Admin: 05/12/21 20:19 Dose: 5 mg/hr, 5 mls/hr Documented by: Magnesium Sulfate 2 gm/ Premix 50 mls @ 25 mls/hr IV ONETIME ONE Stop: 05/12/21 09:49 Last Infusion: 05/12/21 11:40 Dose: Infused Documented by: Sterile Water (Sterile Water For Injection) Confirm Administered Dose 20 mls @ as directed .ROUTE .STK-MED ONE Stop: 05/13/21 16:09 Last Admin: 05/13/21 16:15 Dose: 20 mls/hr Documented by: Sterile Water (Sterile Water For Injection) Confirm Administered Dose 20 mls @ as directed .ROUTE .STK-MED ONE Stop: 05/14/21 15:53 Last Admin: 05/14/21 16:06 Dose: 20 mls/hr Documented by: Iopamidol (Iopamidol 755 Mg/Ml 100 Ml Bottle) 100 ml IVPUSH ONETIME ONE Stop: 05/10/21 11:25 Last Admin: 05/10/21 11:54 Dose: 79 ml Documented by: Magnesium Hydroxide (Magnesium Hydroxide 400 Mg/5 Ml Susp 30 Ml Cup) 30 ml PO ONETIME ONE Stop: 05/14/21 09:31 Last Admin: 05/14/21 10:28 Dose: 30 ml Documented by: Metoprolol Tartrate (Metoprolol Tartrate 25 Mg Tab) 25 mg PO ONETIME ONE Stop: 05/10/21 22:14 Last Admin: 05/10/21 23:00 Dose: 25 mg Documented by: Metoprolol Tartrate (Metoprolol Tartrate 25 Mg Tab) 25 mg PO ONETIME ONE Stop: 05/11/21 06:46 Last Admin: 05/11/21 07:00 Dose: 25 mg Documented by: Metoprolol Tartrate (Metoprolol Tartrate 25 Mg Tab) 25 mg PO ONETIME ONE Stop: 05/11/21 08:00 Last Admin: 05/11/21 08:24 Dose: 25 mg Documented by: Metoprolol Tartrate (Metoprolol Tartrate 5 Mg/5 Ml Sdv) 5 mg IVPUSH Q4H PRN PRN Reason: Tachycardia Metoprolol Tartrate (Metoprolol Tartrate 50 Mg Tab) 50 mg PO Q12H [facility] Last Admin: 05/12/21 09:54 Dose: 50 mg Documented by: Metoprolol Tartrate (Metoprolol Tartrate 50 Mg Tab) 50 mg PO Q12H [facility] Metoprolol Tartrate (Metoprolol Tartrate 5 Mg/5 Ml Sdv) 5 mg IVPUSH ONETIME ONE Stop: 05/11/21 16:47 Last Admin: 05/11/21 16:58 Dose: 5 mg Documented by: Miscellaneous Information (Check Patch *Nicotine*) 1 ea TRDERM BEDTIME [facility] Nicotine (Nicotine 14 Mg/24 Hr Patch) 14 mg TRDERM DAILY [facility] Last Admin: 05/11/21 08:29 Dose: Not Given Documented by: Pneumococcal Polyvalent Vaccine (Pneumococcal Polyvalent-23 Vaccine 0.5 Ml Sdv) 0.5 ml IM .ONCE ONE Stop: 05/10/21 15:11 Polyethylene Glycol (Polyethylene Glycol 3350 Powder 17 Gm Packet) 17 gm PO ONETIME ONE Stop: 05/13/21 13:46 Last Admin: 05/13/21 14:51 Dose: 17 gm Documented by: Potassium Chloride (Potassium Chloride 10 Meq Tab.Er) 20 meq PO ONETIME ONE Stop: 05/10/21 22:05 Last Admin: 05/10/21 22:59 Dose: 20 meq Documented by: Simethicone (Simethicone 80 Mg Tab.Chew) 160 mg PO ONETIME ONE Stop: 05/11/21 21:01 Last Admin: 05/11/21 20:55 Dose: 160 mg Documented by: Simethicone (Simethicone 80 Mg Tab.Chew) 80 mg PO ONETIME ONE Stop: 05/12/21 06:01 Last Admin: 05/12/21 05:54 Dose: 80 mg Documented by: - Exam Quality Assessment: Reports: DVT Prophylaxis. Denies: Supplemental Oxygen, Urine Catheter General: Reports: Alert, Oriented, Cooperative, No Acute Distress HEENT: Reports: Pupils Equal, Pupils Reactive, EOMI, Mucous Membr. Moist/[place] Neck: Reports: Supple Lungs: Reports: Normal Respiratory Effort, Decreased Breath Sounds ( at the bases). Denies: Rhonchi, Wheezing Cardiovascular: Reports: Regular Rate, Regular Rhythm, No Murmurs. Denies: Irregular Rhythm GI/Abdominal Exam: Normal Bowel Sounds, Soft, Non-Tender, No Organomegaly, No Distention, No Abnormal Bruit, Other (Male) Exam: Deferred Rectal (Males) Exam: Deferred Back Exam: Reports: Normal Inspection, Full Range of Motion Extremities: Normal Inspection, Normal Range of Motion, Non-Tender, No Pedal Edema, Normal Capillary Refill Skin: Reports: Warm, Dry, Intact Neurological: Reports: No New Focal Deficit Psy/Mental Status: Reports: Alert, Normal Affect, Normal Mood
[2021-05-15] MEDS: Water For Injection, Sterile 20 ML ONE (09:00)
[2021-05-15] MEDS ORDERED: cefTRIAXone 2 GM Vial IV SCH (09:00)
--- NOTE | 2021-05-20 20:35 | PCM.SN.2 ---
- Free Text/Narrative Note: Patient did meet criteria for sepsis and was present on admission. Time Documentation
== END 2021-05-15 09:40 | disposition home or self-care (01) | DRG 871 ==
LOC: DL.ED 09:58 → DL.MS 14:27
PROVIDERS: ADMIT Pediatrics; ATTEND Internal Medicine
DX: A41.9 Sepsis, unspecified organism (principal); J12.9 Viral pneumonia, unspecified; I48.92 Unspecified atrial flutter; I10 Essential (primary) hypertension; R04.2 Hemoptysis; Z20.822 Contact with and (suspected) exposure to COVID-19; R79.89 Other specified abnormal findings of blood chemistry; E78.5 Hyperlipidemia, unspecified; E66.9 Obesity, unspecified; J44.9 Chronic obstructive pulmonary disease, unspecified; I25.10 Atherosclerotic heart disease of native coronary artery without angina pectoris; G47.33 Obstructive sleep apnea (adult) (pediatric); H54.7 Unspecified visual loss; E78.00 Pure hypercholesterolemia, unspecified; K57.90 Diverticulosis of intestine, part unspecified, without perforation or abscess without bleeding; R32 Unspecified urinary incontinence; Z96.659 Presence of unspecified artificial knee joint; I11.0 Hypertensive heart disease with heart failure; I50.9 Heart failure, unspecified; Z79.01 Long term (current) use of anticoagulants; Z79.899 Other long term (current) drug therapy; Z86.19 Personal history of other infectious and parasitic diseases; Z98.52 Vasectomy status; Z98.890 Other specified postprocedural states; Z68.35 Body mass index [BMI] 35.0-35.9, adult
CPT/HCPCS: 36415; 71260; 80053; 81003; 83036; 83605; 83735; 83880; 84443; 84484; 85025; 85379; 87040; 87070; 87205; 93005 ×2; 96365; 99285; J0696; Q9967; U0002; 71045; 76700; 80048; 80162; 82088; 82533; 82728; 83835; 84244; 84439; 86140; 93010; 93306; 93970; 94667; 99284; A9270-GY; J1160; J1580; J1650; J3475; J3490; J7030; J7050

== ENCOUNTER 2023-03-30 05:23 | Day surgery (SDC) | payer MEDICARE, BC ==
[2023-03-30] MEDS ORDERED: fentaNYL 100 MCG/2 ML SDV IV ONE ×3 (05:24→06:30)
[2023-03-30] MEDS ORDERED: Midazolam 1 MG/ML 2 ML SDV IV ONE ×6 (05:24→06:45)
[2023-03-30] MEDS ORDERED: Dextrose 5%-0.45% NaCl 1,000 ML IV SCH (06:00)
[2023-03-30] MEDS ORDERED: fentaNYL 100 MCG/2 ML SDV ONE (06:16)
[2023-03-30] MEDS ORDERED: Midazolam 1 MG/ML 2 ML SDV ONE (06:16)
[2023-03-30 08:07] VITALS: BP 132/80; PULSE 58
== END 2023-03-30 08:22 | disposition home or self-care (01) ==
LOC: DL.ENDO 05:23
PROVIDERS: ATTEND Internal Medicine Gastroenterology
DX: D12.8 Benign neoplasm of rectum (principal); D12.4 Benign neoplasm of descending colon; K57.30 Diverticulosis of large intestine without perforation or abscess without bleeding; K63.5 Polyp of colon; N40.0 Benign prostatic hyperplasia without lower urinary tract symptoms; E78.5 Hyperlipidemia, unspecified; I10 Essential (primary) hypertension; I48.91 Unspecified atrial fibrillation; E66.09 Other obesity due to excess calories; Z98.890 Other specified postprocedural states; M48.56XA Collapsed vertebra, not elsewhere classified, lumbar region, initial encounter for fracture; Z68.35 Body mass index [BMI] 35.0-35.9, adult
CPT/HCPCS: 45385; 88305; J2250; J3010; J7042

== ENCOUNTER 2023-09-20 19:35 | Emergency (ER) | payer MEDICARE, BC ==
[2023-09-20] MEDS ORDERED: Sodium Chloride 0.9% 10 ML Syringe FLUSH PRN (20:06)
[2023-09-20 20:17] VITALS: BP 148/58; PULSE 84
[2023-09-20 20:17] LABS: BASOPHILS PERCENT AUTO 0.2 % (0.0-1.0); EOSINOPHILS PERCENT AUTO 0.2 % (1.0-3.0); HEMOGLOBIN 13.1 g/dL (14.0-18.0); MEAN CORPUSCULAR HEMOGLOBIN 31.2 pg (27.0-34.0); MEAN CORPUSCULAR HGB CONC 34.5 g/dL (33.0-35.0); MEAN CORPUSCULAR VOLUME 90.5 fL (80-100); NEUTROPHILS PERCENT AUTO 73.6 % (42.2-75.2); PLATELET COUNT,PLT 164 10^3/uL (150-450); WHITE BLOOD CELL COUNT,WBC 12.8 10^3/uL (5.0-10.0)
[2023-09-20 20:37] LABS: ALBUMIN 2.9 g/dL (3.4-5.0); BILIRUBIN TOTAL 1.2 mg/dL (0.2-1.0); BUN/CREATININE RATIO 24.2 (No establ ref range); CALCIUM 8.4 mg/dL (8.5-10.1); CREATININE 0.95 mg/dL (0.70-1.30); EST CRCL DRUG DOSING (CG) 62.02 mL/min; PROTEIN TOTAL,TP 6.1 g/dL (6.4-8.2)
[2023-09-20 20:40] LABS: A/G RATIO 0.91
[2023-09-20 20:44] LABS: INR 1.1 (0.9-1.2); PROTHROMBIN TIME 11.1 SEC (9.0-12.0)
[2023-09-20] MEDS ORDERED: Sodium Chloride 0.9% 1,000 ML IV ONE (20:51)
[2023-09-20] MEDS ORDERED: Magnesium Sulfate/Water 2 GM in Premix Bag 1 BAG IV ONE (21:37)
== END 2023-09-20 22:55 | disposition home or self-care (01) ==
LOC: DL.ED 19:35
DX: L76.22 Postprocedural hemorrhage of skin and subcutaneous tissue following other procedure (principal); E87.1 Hypo-osmolality and hyponatremia; E83.42 Hypomagnesemia; I48.91 Unspecified atrial fibrillation; I11.0 Hypertensive heart disease with heart failure; I50.9 Heart failure, unspecified; E78.00 Pure hypercholesterolemia, unspecified; E66.9 Obesity, unspecified; Z68.35 Body mass index [BMI] 35.0-35.9, adult; Z79.899 Other long term (current) drug therapy; Z79.01 Long term (current) use of anticoagulants
CPT/HCPCS: 36415; 80053; 83735; 85025; 85610; 96361; 96365; 99283-25; J3475; J3490; J7030